=== PATIENT | male | born 1960 | race African-American/Black ===

== ENCOUNTER → 2016-12-17 | Outpatient (CLI) | payer OTHER ==
[2016-12-17 09:04] LABS: ABSOLUTE BASOPHILS # (AUTO) 0.1 10^3/uL (0.0-0.2); ABSOLUTE EOSINOPHILS # (AUTO) 0.3 10^3/uL (0.0-0.6); ABSOLUTE LYMPHOCYTES (AUTO) 1.9 10^3/uL (0.5-4.7); ABSOLUTE MONOCYTES (AUTO) 0.9 10^3/uL (0.1-1.4); ABSOLUTE NEUT (AUTO) 4.4 10^3/uL (1.7-8.2); BASOPHILS % (AUTO) 0.9 % (0-2); EOSINOPHILS % (AUTO) 3.7 % (0-6); HEMATOCRIT 46.6 % (37.9-51.0); HEMOGLOBIN 15.6 g/dL (13.5-17.0); HGB HCT DIFFERENCE 0.2; LYMPHOCYTES % (AUTO) 25.3 % (13-45); MEAN CORPUSCULAR HEMOGLOBIN 29.9 pg (27.0-33.4); MEAN CORPUSCULAR HGB CONC 33.5 g/dL (32.0-36.0); MEAN CORPUSCULAR VOLUME 89 fl (80-97); MONOCYTES % (AUTO) 11.6 % (3-13); RED BLOOD COUNT 5.23 10^6/uL (4.35-5.55); RED CELL DISTRIBUTION WIDTH 14.4 % (11.5-14.0); SEGMENTED NEUTROPHILS % (AUTO) 58.5 % (42-78); WHITE BLOOD COUNT 7.4 10^3/uL (4.0-10.5)
--- NOTE | 2016-12-17 19:54 | EKG REPORT ---
SEVERITY:- ABNORMAL ECG - SINUS RHYTHM PROBABLE LEFT ATRIAL ABNORMALITY NONSPECIFIC INTRAVENTRICULAR CONDUCTION DELAY LEFT VENTRICULAR HYPERTROPHY : Confirmed by: Michael Cobb MD 17-Dec-2016 19:53:50
== END ==
LOC: CCC 08:11
DX: I10 Essential (primary) hypertension (principal); E11.9 Type 2 diabetes mellitus without complications; I25.10 Atherosclerotic heart disease of native coronary artery without angina pectoris
CPT/HCPCS: 36415; 84153; 84443; 85025; 93005; 93010

== ENCOUNTER → 2016-12-27 | Outpatient (CLI) | payer OTHER ==
[2016-12-27 16:30] LABS: ANION GAP 10 (5-19); BLOOD UREA NITROGEN 24 mg/dL (7-20); CALCIUM 9.5 mg/dL (8.4-10.2); CARBON DIOXIDE 29 mmol/L (22-30); CHLORIDE 100 mmol/L (98-107); CREATININE RESULT 1.11 mg/dL (0.52-1.25); GLUCOSE 209 mg/dL (75-110); POTASSIUM 4.4 mmol/L (3.6-5.0); SODIUM 139.4 mmol/L (137-145)
== END ==
LOC: CCC 15:24
DX: Z79.899 Other long term (current) drug therapy (principal)
CPT/HCPCS: 36415; 80048

== ENCOUNTER 2016-12-29 11:39 | Emergency (ER) | payer MEDICAID, OTHER ==
--- NOTE | 2016-12-29 11:51 | ER Document Report ---
ED Medical Screen (RME) - General Stated Complaint: BLOOD SUGAR PROBLEMS Time seen by provider: 11:46 Mode of Arrival: Ambulatory Information source: Patient Notes: 56-year-old male presents to ED for elevated blood sugar with type II diabetes. States his sugar has been running in the in the 300s. High sugar was 500s that was this morning. He is on insulin and metformin. Metformin he just restarted on Monday. Patient has a history of CHF blood pressure and cholesterol as well as diabetes type II. Headache triple bypass in 2011. The blood pressure in RME was 186/121 he states he did take his blood pressure medicine this morning.. This morning his blood pressure was 155/100. He states his blood pressure is not been running that high but his states his blood pressure is always high. I have greeted and performed a rapid initial assessment of this patient. A comprehensive ED assessment and evaluation of the patient, analysis of test results and completion of medical decision making process will be conducted by an additional ED providers. TRAVEL OUTSIDE OF THE [place] IN LAST 30 DAYS: No - Related Data Allergies/Adverse Reactions: No Known Allergies Allergy (Verified 09/19/16 01:19) Past Medical History - Past Medical History Cardiac Medical History: Reports: Hx Coronary Artery Disease, Hx Heart Attack - possible mild heart attack , Hx Hypercholesterolemia, Hx Hypertension Denies: Hx DVT, Hx Pulmonary Embolism Pulmonary Medical History: Reports: Hx Pneumonia Denies: Hx Asthma, Hx Bronchitis, Hx COPD Neurological Medical History: Denies: Hx Cerebrovascular Accident, Hx Seizures Endocrine Medical History: Reports: Hx Diabetes Mellitus Type 2. Denies: Hx Hyperthyroidism, Hx Hypothyroidism GI Medical History: Denies: Hx Cirrhosis, Hx Gastroesophageal Reflux Disease, Hx Hepatitis Musculoskeltal Medical History: Denies Hx Arthritis Psychiatric Medical History: Denies: Hx Depression Infectious Medical History: Denies: Hx Hepatitis Past Surgical History: Reports: Hx Cardiac Surgery - bypass 01/19/12, Hx Coronary Artery Bypass Graft, Hx Tonsillectomy - Immunizations Hx Diphtheria, Pertussis, Tetanus Vaccination: Yes
[2016-12-29 12:34] LABS: ABSOLUTE EOSINOPHILS # (AUTO) 0.2 10^3/uL (0.0-0.6); ABSOLUTE LYMPHOCYTES (AUTO) 2.2 10^3/uL (0.5-4.7); ABSOLUTE MONOCYTES (AUTO) 0.8 10^3/uL (0.1-1.4); ABSOLUTE NEUT (AUTO) 4.4 10^3/uL (1.7-8.2); BASOPHILS % (AUTO) 0.2 % (0-2); EOSINOPHILS % (AUTO) 2.3 % (0-6); HEMOGLOBIN 15.1 g/dL (13.5-17.0); HGB HCT DIFFERENCE 0.3; LYMPHOCYTES % (AUTO) 28.4 % (13-45); MEAN CORPUSCULAR HEMOGLOBIN 29.8 pg (27.0-33.4); MEAN CORPUSCULAR HGB CONC 33.6 g/dL (32.0-36.0); MEAN CORPUSCULAR VOLUME 89 fl (80-97); MONOCYTES % (AUTO) 10.4 % (3-13); RED BLOOD COUNT 5.07 10^6/uL (4.35-5.55); RED CELL DISTRIBUTION WIDTH 14.4 % (11.5-14.0); SEGMENTED NEUTROPHILS % (AUTO) 58.7 % (42-78); WHITE BLOOD COUNT 7.6 10^3/uL (4.0-10.5)
[2016-12-29 12:56] LABS: ALANINE AMINOTRANSFERASE 34 U/L (21-72); ALKALINE PHOSPHATASE 86 U/L (38-126); ANION GAP 10 (5-19); ASPARTATE AMINO TRANSFERASE 22 U/L (17-59); BILIRUBIN,TOTAL 0.8 mg/dL (0.2-1.3); BLOOD UREA NITROGEN 23 mg/dL (7-20); CALCIUM 9.6 mg/dL (8.4-10.2); CARBON DIOXIDE 30 mmol/L (22-30); CHLORIDE 100 mmol/L (98-107); CREATINE KINASE 193 U/L (55-170); CREATININE RESULT 1.18 mg/dL (0.52-1.25); GLUCOSE 302 mg/dL (75-110); POTASSIUM 5.5 mmol/L (3.6-5.0); SODIUM 139.5 mmol/L (137-145); TOTAL PROTEIN 7.9 g/dL (6.3-8.2)
[2016-12-29 13:10] LABS: TROPONIN I < 0.012 ng/mL
--- NOTE | 2016-12-29 13:14 | ER Document Report ---
ED Blood Sugar Problem - General Mode of Arrival: Ambulatory Information source: Patient TRAVEL OUTSIDE OF THE [place] IN LAST 30 DAYS: No - HPI Patient complains to provider of: Hyperglycemia Associated symptoms: Other - see above <RADHA MARR - Last Filed: 12/29/16 13:02> <TREVON AKIEN - Last Filed: 12/29/16 16:34> - General Chief Complaint: High Blood Sugar Stated Complaint: BLOOD SUGAR PROBLEMS Notes: 56 year old male with history of CHF, hypertension, hyperlipidemia, CAD, and diabetes mellitus type II presents to the ED complaining of hyperglycemia. Patient's states that his medications were changed 2 days ago and now takes Metformin and Lantus (20 units). Patient is also on Lasix, Carvedilol, Lisinopril, and sliding scale regular insulin. states that the patient took 10 units of sliding scale insulin at 0915 and 1023 this morning. Patient states that he feels "so so." According to a hyperglycemia and hypertension log the patient brought in, the patient's blood sugar appears to range between 250- 300 constantly. (RADHA MARR) This 56-year-old diabetic comes to the emergency room for high blood sugars. He has a log for the past month or more showing sugars around 300 most of the time. A few days ago he had his 70/30 10units BID stopped, and was changed to Lantus 20units at bedtime, metformin twice a day, and sliding scale regular. This morning his sugar was over 500 and he took 10 units of insulin about 9:15 AM, and another 10 units at 10:23 AM. At 12 noon his blood sugar was 302, with no treatment at all 3 hours later it was 226. A hemoglobin A1c is 10.2 I suspect his blood sugars are running high only because his 70/30 insulin was stopped and the Lantus dose is not adequate. (TREVON AIKEN) - Related Data Allergies/Adverse Reactions: No Known Allergies Allergy (Verified 12/29/16 11:46) Past Medical History - General Information source: Patient - Social History Smoking Status: Former Smoker Chew tobacco use (# tins/day): No Frequency of alcohol use: Occasional Drug Abuse: None Family History: Reviewed & Not Pertinent Patient has suicidal ideation: No Patient has homicidal ideation: No - Past Medical History Cardiac Medical History: Reports: Hx Congestive Heart Failure - Ejection fraction of 20%, Hx Coronary Artery Disease, Hx Heart Attack - possible mild heart attack , Hx Hypercholesterolemia, Hx Hypertension Pulmonary Medical History: Reports: Hx Pneumonia Endocrine Medical History: Reports: Hx Diabetes Mellitus Type 2 Renal/ Medical History: Denies: Hx Peritoneal Dialysis Past Surgical History: Reports: Hx Cardiac Surgery - bypass 01/19/12, Hx Coronary Artery Bypass Graft - CABGx3 in 2012, Hx Tonsillectomy - Immunizations Hx Diphtheria, Pertussis, Tetanus Vaccination: Yes <RADHA MARR - Last Filed: 12/29/16 13:02> Review of Systems - Review of Systems Constitutional: No symptoms reported EENT: No symptoms reported Cardiovascular: See HPI, Other - hyperglycemia Respiratory: No symptoms reported Gastrointestinal: No symptoms reported Genitourinary: No symptoms reported Male Genitourinary: No symptoms reported Musculoskeletal: No symptoms reported Skin: No symptoms reported Hematologic/Lymphatic: No symptoms reported Neurological/Psychological: No symptoms reported -: Yes All other systems reviewed and negative <RADHA MARR - Last Filed: 12/29/16 13:02> Physical Exam - General General appearance: Alert In distress: None - HEENT Head: Normocephalic, Atraumatic Eyes: Normal Extraocular movements intact: Yes Pupils: PERRL - Respiratory Respiratory status: No respiratory distress Breath sounds: Rhonchi - at bilateral bases - Cardiovascular Rhythm: Regular Heart sounds: Normal auscultation - Abdominal Inspection: Normal, Obese - Back Back: Normal - Extremities General upper extremity: Normal inspection, Normal ROM General lower extremity: Normal inspection, Edema, Normal ROM - Neurological Neuro grossly intact: Yes - Psychological Associated symptoms: Normal affect, Normal mood - Skin Skin Temperature: Warm Skin Moisture: Dry Skin Color: Normal <RADHA MARR - Last Filed: 12/29/16 13:02> Course - Laboratory Result Diagrams: 12/29/16 12:10 12/29/16 12:10 <RADHA MARR - Last Filed: 12/29/16 13:02> - Laboratory Result Diagrams: 12/29/16 12:10 12/29/16 12:10 <TREVON AIKEN - Last Filed: 12/29/16 16:34> - Laboratory Laboratory results interpreted by me: 12/29/16 12/29/16 12/29/16 12:10 12:10 12:10 RDW 14.4 H Potassium 5.5 H BUN 23 H Glucose 302 H POC Glucose Hemoglobin A1c % 10.2 H Creatine Kinase 193 H 12/29/16 15:08 RDW Potassium BUN Glucose POC Glucose 226 H Hemoglobin A1c % Creatine Kinase Discharge <RADHA MARR - Last Filed: 12/29/16 13:02> <TREVON AIKEN - Last Filed: 12/29/16 16:34> - Discharge Clinical Impression: Hyperglycemia due to type 2 diabetes mellitus Qualifiers: Diabetes mellitus intermodal dispatcher insulin use: without intermodal dispatcher use Qualified Code(s ): E11.65 - Type 2 diabetes mellitus with hyperglycemia Condition: Stable Disposition: HOME, SELF-CARE Additional Instructions: Increase your Lantus insulin to 25 units twice daily in the morning and again in the evening. Continue the sliding scale as needed. Continue the metformin as prescribed. Follow-up with your doctor as scheduled in January. Return to the emergency room if any problems. Scribe Attestation: 12/29/16 16:34 I personally performed the services described in the documentation, reviewed and edited the documentation which was dictated to the scribe in my presence, and it accurately records my words and actions. (TREVON AIKEN) Scribe Documentation - Scribe Written by Arnoldo:: Arnoldo Haro, 12/29/2016 1317 acting as scribe for :: Baldev <RADHA MARR - Last Filed: 12/29/16 13:02>
[2016-12-29 16:41] LABS: APPEARANCE,URINE SLIGHTLY-CLOUDY; BILIRUBIN,URINE NEGATIVE (NEGATIVE); GLUCOSE, URINE >=500 mg/dL (NEGATIVE); KETONES,URINE NEGATIVE (NEGATIVE); LEUKOCYTE ESTERASE,URINE NEGATIVE (NEGATIVE); NITRITE,URINE NEGATIVE (NEGATIVE); PROTEIN,URINE NEGATIVE (NEGATIVE); UROBILINOGEN,URINE NEGATIVE mg/dL (<2.0)
[2016-12-29 17:04] VITALS: BP 145/96
--- NOTE | 2016-12-30 05:40 | EKG REPORT ---
SEVERITY:- ABNORMAL ECG - SINUS RHYTHM PROBABLE LEFT ATRIAL ABNORMALITY NONSPECIFIC INTRAVENTRICULAR CONDUCTION DELAY : Confirmed by: Nancy Petty MD 30-Dec-2016 05:40:04
== END 2016-12-29 17:05 | disposition home or self-care (01) ==
LOC: ER 11:39
DX: E11.65 Type 2 diabetes mellitus with hyperglycemia (principal); I50.9 Heart failure, unspecified; I11.0 Hypertensive heart disease with heart failure; E78.00 Pure hypercholesterolemia, unspecified; I25.10 Atherosclerotic heart disease of native coronary artery without angina pectoris; Z79.4 Long term (current) use of insulin; Z87.891 Personal history of nicotine dependence; Z79.84 Long term (current) use of oral hypoglycemic drugs; Z95.1 Presence of aortocoronary bypass graft
CPT/HCPCS: 36415; 71020; 80053; 81001; 82550; 82553; 82962; 83036; 84484; 85025; 93005; 93010; 99285

== ENCOUNTER 2017-05-06 18:20 | Observation (INO) | payer MEDICAID ==
--- NOTE | 2017-05-06 19:31 | ER Document Report ---
ED Cardiac - General Mode of Arrival: Ambulatory Information source: Patient TRAVEL OUTSIDE OF THE [place] IN LAST 30 DAYS: No <ELIANE STEELE - Last Filed: 05/06/17 22:10> <MARGARET MEAD - Last Filed: 05/07/17 22:55> - General Chief Complaint: Chest Pain Stated Complaint: CHEST PAIN Time Seen by Provider: 05/06/17 19:11 Notes: Patient is a 56 year old male presenting to the emergency department for chest pain onset at 14:00 today. Patient was mowing the year, sweeping and felt hot and tired so he went into the house. Patient states his legs felt like jello and then he went to the ground and spouse came to patient and found patient on the ground and got the patient to sit up and the patient was taking. Patient had water outside and after the incident. Spouse states the patient was sweating. Patient's pain was onset after the possible syncopal and lasted for about 2 minutes. Patient states his chest pain keeps coming back. Patient's pain is on the left side of her chest and radiates down her left arm. Patient took 325 mg Aspirin this morning. Patient is waiting to have a defibrillator placed (May 25). Patient has a history of CHF (2015), triple bypass (2011), diabetes mellitus, hypertension, and had a cardiac catherization 2 weeks ago which showed no blockages. Patient has no known allergies. Patient has nitroglycerin but did not take it. Patient takes lasix x2 per day. Patient recently moved and has not mowed the lawn like he had today. Patient's most daily activity is not much; patient's level activity today was more than usual. Patient is unsure what his ejection fraction is. Patient states he is feels better compared to earlier today. Patient denies any stroke-like symptoms. PCP Dr. Luna [employer] Dr. Thornton (ELIANE STEELE) - Related Data Allergies/Adverse Reactions: No Known Allergies Allergy (Verified 12/29/16 11:46) Home Medications: Current Home Medications Amlodipine Besylate [Norvasc 5 mg Tablet] 5 mg PO DAILY 05/07/17 [History] Aspirin [Aspirin 325 mg Tablet] 325 mg PO DAILY 05/07/17 [History] Atorvastatin Calcium [Lipitor 40 mg Tablet] 40 mg PO QHS 05/07/17 [History] Carvedilol [Coreg 25 mg Tablet] 25 mg PO Q12 05/07/17 [History] Diphenhydramine HCl [Benadryl 25 mg Capsule] 25 mg PO BID 05/07/17 [History] Docusate Sodium [Colace 100 mg Capsule] 100 mg PO BID 05/07/17 [History] Furosemide [Lasix] 40 mg PO BID 05/07/17 [History] Insulin Glargine,Hum.rec.anlog [Lantus Solostar] 32 units SQ BID 05/07/17 [ History] Insulin Lispro [Humalog Insulin (Lispro) 100 unit/mL] 4 units SQ MEALS 05/07/17 [History] Lisinopril [Zestril] 40 mg PO DAILY 05/07/17 [History] Metformin HCl [Glucophage] 1,000 mg PO BID 05/07/17 [History] Multivit-Min/FA/Lycopen/Lutein [Centrum Silver Men Tablet] 1 tab PO DAILY [History] Past Medical History - General Information source: Patient - Social History Smoking Status: Never Smoker Cigarette use (# per day): No Chew tobacco use (# tins/day): No Smoking Education Provided: No Frequency of alcohol use: None Drug Abuse: None Family History: None Patient has suicidal ideation: No Patient has homicidal ideation: No - Past Medical History Cardiac Medical History: Reports: Hx Congestive Heart Failure - Ejection fraction of 20%, Hx Coronary Artery Disease, Hx Heart Attack - possible mild heart attack , Hx Hypercholesterolemia, Hx Hypertension Pulmonary Medical History: Reports: Hx Pneumonia Endocrine Medical History: Reports: Hx Diabetes Mellitus Type 2 Past Surgical History: Reports: Hx Cardiac Surgery - bypass 01/19/12, Hx Coronary Artery Bypass Graft - CABGx3 in 2011, Hx Tonsillectomy - Immunizations Hx Diphtheria, Pertussis, Tetanus Vaccination: Yes <ELIANE STEELE - Last Filed: 05/06/17 22:10> Review of Systems - Review of Systems Constitutional: No symptoms reported EENT: No symptoms reported Cardiovascular: See HPI, Chest pain Respiratory: No symptoms reported Gastrointestinal: No symptoms reported Genitourinary: No symptoms reported Male Genitourinary: No symptoms reported Musculoskeletal: No symptoms reported Skin: No symptoms reported Hematologic/Lymphatic: No symptoms reported Neurological/Psychological: No symptoms reported -: Yes All other systems reviewed and negative <CEDRICSHERIEELIANE - Last Filed: 05/06/17 22:10> Physical Exam <ELIANE STEELE - Last Filed: 05/06/17 22:10> <MARGARET MEAD - Last Filed: 05/07/17 22:55> - Vital signs Vitals: Temp Pulse Resp BP Pulse Ox 98.1 F 83 20 178/97 H 96 05/06/17 18:37 05/06/17 18:37 05/06/17 18:37 05/06/17 18:37 05/06/17 18:37 - Notes Notes: GENERAL: Alert, interacts well. Mild distress. HEAD: Normocephalic, atraumatic. EYES: Appear normal. Pupils equal, round, and reactive to light. ENT: Moist mucus membranes, tongue midline. NECK: Full range of motion. Supple. Trachea midline. LUNGS: Clear to auscultation bilaterally, no wheezes, rales, or rhonchi. No respiratory distress. HEART: Regular rate and rhythm. No murmurs, gallops, or rubs. ABDOMEN: Soft, non-tender. Non-distended. Normal bowel sounds. EXTREMITIES: Moves all 4 extremities spontaneously. Normal strength. No edema. Normal radial and dorsal pedis pulses. NEUROLOGICAL: Alert and oriented x3. Normal speech. No focal neurological deficits. GSC 15. PSYCH: Normal affect, normal mood. SKIN: Warm, dry, normal turgor. No rashes or lesions noted. (CEDRICELIANE) Course - Laboratory Result Diagrams: 05/06/17 19:54 05/06/17 19:54 - Consults Dr. Renteria Time consulted: 21:50 <ELIANE STEELE - Last Filed: 05/06/17 22:10> - Laboratory Result Diagrams: 05/07/17 06:50 05/07/17 06:50 <MARGARET MEAD - Last Filed: 05/07/17 22:55> - Re-evaluation Re-evalutation: 05/06/17 22:11 Patient presents to the emergency department with a syncopal episode. 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 He just had a heart cath done 2 weeks ago which was negative for blockages but the concern about her valve. He scheduled next month from Dr. Thornton to have a pacemaker defibrillator placed. He has no cardiac stents. He was out mowing the lawn today got overheated started shaking says he went into the house felt like jelly and the next thing he knew he was lying on the ground. His had hollered for him because she was right around the corner he did not respond she came in the house found him laying on the ground. She said it took him a minute or so to respond there was no seizure-like activity or incontinence of urine. She aroused him he did not remember passing out. He stated that he has had some intermittent chest pain lasting seconds resolved on ED arrival. He did take a full aspirin today. Denies any headache blurred vision double vision or strokelike symptoms. He denies any chest pain ongoing in the emergency department stable nonacute EKG labs cardiac enzymes CT of the chest abdomen pelvis negative for PE dissection or aneurysm. Spoke with the hospitalist at this time we will admit him for observation telemetry for further evaluation (MARGARET MEAD) - Vital Signs Vital signs: Temp Pulse Resp BP Pulse Ox 98.2 F 73 20 159/98 H 98 05/07/17 20:00 05/07/17 20:00 05/07/17 20:00 05/07/17 20:00 05/07/17 20:00 - Laboratory Laboratory results interpreted by me: 05/06/17 05/06/17 19:54 19:54 BUN 23 H Creatinine 1.33 H Est GFR (Non-Af Amer) 56 L Glucose 232 H Creatine Kinase 334 H NT-Pro-B Natriuret Pep 952 H - Consults Dr. Renteria Reason for consultation: 05/06/17 21:[address] Renteria who admits the patient. (ELIANE STEELE) Critical Care Note - Critical Care Note Total time excluding time spent on procedures (mins): 65 <MARGARET MEAD - Last Filed: 05/07/17 22:55> Discharge <ELIANE STEELE - Last Filed: 05/06/17 22:10> - Discharge Admitting Provider: Hospitalist Unit Admitted: Telemetry <MARGARET MEAD - Last Filed: 05/07/17 22:55> - Discharge Clinical Impression: chest pain Syncope Qualifiers: Syncope type: unspecified Qualified Code(s): R55 - Syncope and collapse Scribe Attestation: 05/06/17 22:08 I personally performed the services described in the documentation reviewed the documentation recorded by my scribe in my presence and it accurately and completely records my words and actions (MARGARET MEAD) Scribe Documentation - Scribe Written by Scribe:: Arnoldo Matthews, 05/06/17 19:41 acting as scribe for :: [place] <ELIANE STEELE - Last Filed: 05/06/17 22:10>
[2017-05-06 20:18] LABS: ABSOLUTE BASOPHILS # (AUTO) 0.1 10^3/uL (0.0-0.2); ABSOLUTE EOSINOPHILS # (AUTO) 0.2 10^3/uL (0.0-0.6); ABSOLUTE LYMPHOCYTES (AUTO) 2.2 10^3/uL (0.5-4.7); ABSOLUTE MONOCYTES (AUTO) 0.8 10^3/uL (0.1-1.4); ABSOLUTE NEUT (AUTO) 4.4 10^3/uL (1.7-8.2); BASOPHILS % (AUTO) 0.7 % (0-2); EOSINOPHILS % (AUTO) 3.1 % (0-6); HEMATOCRIT 41.6 % (37.9-51.0); HEMOGLOBIN 14.4 g/dL (13.5-17.0); HGB HCT DIFFERENCE 1.6; LYMPHOCYTES % (AUTO) 28.9 % (13-45); MEAN CORPUSCULAR HEMOGLOBIN 31.7 pg (27.0-33.4); MEAN CORPUSCULAR HGB CONC 34.7 g/dL (32.0-36.0); MEAN CORPUSCULAR VOLUME 91 fl (80-97); MONOCYTES % (AUTO) 9.9 % (3-13); RED BLOOD COUNT 4.55 10^6/uL (4.35-5.55); RED CELL DISTRIBUTION WIDTH 13.3 % (11.5-14.0); SEGMENTED NEUTROPHILS % (AUTO) 57.4 % (42-78); WHITE BLOOD COUNT 7.7 10^3/uL (4.0-10.5)
--- NOTE | 2017-05-06 20:25 | RADIOLOGY REPORT (SQ) ---
EXAM DESCRIPTION: CHEST SINGLE VIEW COMPLETED DATE/TIME: 05/06/2017 7:32 pm REASON FOR STUDY: chest pain COMPARISON: 12/29/2016 EXAM PARAMETERS: NUMBER OF VIEWS: One view. TECHNIQUE: Single frontal radiographic view of the chest acquired. RADIATION DOSE: NA LIMITATIONS: None. FINDINGS: LUNGS AND PLEURA: No opacities, masses or pneumothorax. No pleural effusion. MEDIASTINUM AND HILAR STRUCTURES: No masses. Contour normal. HEART AND VASCULAR STRUCTURES: Heart normal in size. Normal vasculature. BONES: No acute findings. HARDWARE: Median sternotomy wires remain intact. OTHER: No other significant finding. IMPRESSION: NO ACUTE RADIOGRAPHIC FINDING IN THE CHEST. TECHNICAL DOCUMENTATION: JOB ID: [id number]
[2017-05-06 20:34] LABS: ANION GAP 11 (5-19); BLOOD UREA NITROGEN 23 mg/dL (7-20); CALCIUM 9.7 mg/dL (8.4-10.2); CARBON DIOXIDE 29 mmol/L (22-30); CHLORIDE 100 mmol/L (98-107); CREATINE KINASE 334 U/L (55-170); CREATININE RESULT 1.33 mg/dL (0.52-1.25); GLUCOSE 232 mg/dL (75-110); POTASSIUM 3.6 mmol/L (3.6-5.0); SODIUM 140.3 mmol/L (137-145)
[2017-05-06 20:45] LABS: TROPONIN I 0.018 ng/mL
--- NOTE | 2017-05-06 21:15 | RADIOLOGY REPORT (SQ) ---
EXAM DESCRIPTION: CT ABD/PELVIS WITH IV ONLY COMPLETED DATE/TIME: 05/06/2017 8:52 pm REASON FOR STUDY: syncope COMPARISON: None. TECHNIQUE: CT scan of the abdomen and pelvis performed using helical scanning technique with dynamic intravenous contrast injection. No oral contrast. Images reviewed with lung, soft tissue, and bone windows. Reconstructed coronal and sagittal MPR images reviewed. Delayed images for evaluation of the urinary system also acquired. All images stored on PACS. All CT scanners at this facility use dose modulation, iterative reconstruction, and/or weight based d osing when appropriate to reduce radiation dose to as low as reasonably achievable (ALARA). [facility]: Dose Right [facility]: CareDose [facility]: Dose Right [facility]: Teradose 4D [facility]: Udacity CONTRAST TYPE AND DOSE: 100 mL Isovue 370- low osmolar. RENAL FUNCTION: BUN 23; creatinine 1.33 RADIATION DOSE: Up-to-date CT equipment and radiation dose reduction techniques were employed. CTDIv ol: 21.0 - 21.1 mGy. DLP: 2785 mGy-cm.. LIMITATIONS: None. FINDINGS: LOWER CHEST: See separate report of the CT of the chest. LIVER: Normal size. No masses. No dilated ducts. SPLEEN: Normal size. No focal lesions. PANCREAS: No masses. No significant calcifications. No adjacent inflammation or peripancreatic fluid collections. Pancreatic duct not dilated. GALLBLADDER: No identified stones by CT criteria. No inflammatory changes to suggest cholecystitis. ADRENAL GLANDS: No significant masses or asymmetry. RIGHT KIDNEY AND URETER: No solid masses. No significant calcifications. No hydronephrosis or hyd roureter. LEFT KIDNEY AND URETER: No solid masses. No significant calcifications. No hydronephrosis or hydr oureter. AORTA AND VESSELS: Significant calcified atherosclerotic plaque. No aneurysm. No dissection. Renal a rteries, SMA, celiac without stenosis. RETROPERITONEUM: No retroperitoneal adenopathy, hemorrhage or masses. BOWEL AND PERITONEAL CAVITY: Sigmoid diverticulosis. No masses or inflammatory changes. No free flui d or peritoneal masses. APPENDIX: Not visualized. PELVIS: And ovoid soft tissue attenuation lesion adjacent to the bladder demonstrating peripheral jami cifications is of uncertain etiology or significance, but overall demonstrates benign appearance. No free fluid. Normal bladder. ABDOMINAL WALL: No masses. No hernias. BONES: No significant or acute findings. OTHER: No other significant finding. IMPRESSION: No evidence of acute intra-abdominal infectious/ inflammatory process to correlate to th e patient's reported left-sided abdominal pain. TECHNICAL DOCUMENTATION: JOB ID: [id number] Quality ID # [id number]: Final reports with documentation of one or more dose reduction techniques (e.g., Au tomated exposure control, adjustment of the mA and/or kV according to patient size, use of iterative reconstruction technique) 2010 [employer]- All Rights Reserved
--- NOTE | 2017-05-06 21:18 | RADIOLOGY REPORT (SQ) ---
EXAM DESCRIPTION: CT CHEST WITH COMPLETED DATE/TIME: 05/06/2017 8:52 pm REASON FOR STUDY: syncope COMPARISON: None. TECHNIQUE: CT scan of the chest performed using helical scanning technique with dynamic intravenous contrast injection. Images reviewed with lung, soft tissue and bone windows. Reconstructed coronal and sagittal MPR images reviewed. All images stored on PACS. All CT scanners at this facility use dose modulation, iterative reconstruction, and/or weight based d osing when appropriate to reduce radiation dose to as low as reasonably achievable (ALARA). [facility]: Dose Right [facility]: CareDose [facility]: Dose Right [facility]: Teradose 4D [facility]: Liqueo CONTRAST TYPE AND DOSE: contrast/concentration: Isovue 370.00 mg/ml; Total Contrast Delivered: 100.0 ml; Total Saline Delivered: 72.0 ml RENAL FUNCTION: BUN 23; creatinine 1.33 RADIATION DOSE: . LIMITATIONS: None. FINDINGS: LUNGS AND PLEURA: No opacities, nodules, masses. No pneumothorax. No effusions. HILAR AND MEDIASTINAL STRUCTURES: No identified masses or abnormal nodes. HEART AND VASCULAR STRUCTURES: No aneurysm or dissection. No central pulmonary emboli. No pericardi al effusion. HARDWARE: Sternal wires. UPPER ABDOMEN: See separate report of the CT of the abdomen. THYROID AND OTHER SOFT TISSUES: No masses. No adenopathy. BONES: No significant finding. OTHER: No other significant finding. IMPRESSION: No evidence of acute intrathoracic abnormality to correlate to the patient's reported sy ncope. TECHNICAL DOCUMENTATION: JOB ID: [id number] Quality ID # [id number]: Final reports with documentation of one or more dose reduction techniques (e.g., Au tomated exposure control, adjustment of the mA and/or kV according to patient size, use of iterative reconstruction technique) 2010 [employer]- All Rights Reserved
[2017-05-06] MEDS ORDERED: ENALAPRILAT DIHYDRATE INJ/PF 1.25 MG/1 ML SDV IV PRN (21:55)
[2017-05-06] MEDS ORDERED: GLUCAGON,HUMAN RECOMB 1 MG INJ IM PRN (21:59)
[2017-05-06] MEDS ORDERED: DEXTROSE 40% GEL 15 GM TUBE PO PRN ×2 (21:59)
[2017-05-06] MEDS ORDERED: DEXTROSE 50%-WATER 25 GM/50 ML DISP.SYRIN IV PRN ×2 (21:59)
[2017-05-06] MEDS ORDERED: HEPARIN SOD (PORCINE) 5,000 UNIT/ML 1 ML SYRINGE SUBCUT SCH (22:00)
[2017-05-06] MEDS ORDERED: FUROSEMIDE INJ/PF 40 MG/4 ML SDV IV ONE (22:15)
[2017-05-06] MEDS ORDERED: POTASSIUM CHLORIDE 10 MEQ TABLET.SA PO ONE (23:00)
[2017-05-07 00:18] LABS: URINE BARBITURATES SCREEN NEGATIVE; URINE METHADONE SCREEN NEGATIVE; URINE OPIATES LOW NEGATIVE; URINE PHENCYCLIDINE SCREEN NEGATIVE
[2017-05-07 01:29] LABS: CREATINE KINASE MB 2.81 ng/mL (<4.55); TROPONIN I 0.023 ng/mL
[2017-05-07] MEDS ORDERED: HEPARIN SOD (PORCINE) 5,000 UNIT/ML 1 ML SYRINGE SUBCUT ONE (02:00)
[2017-05-07] MEDS ORDERED: POTASSIUM CHLORIDE 10 MEQ TABLET.SA PO ONE (02:00)
[2017-05-07] MEDS ORDERED: FUROSEMIDE INJ/PF 40 MG/4 ML SDV IV ONE (02:00)
[2017-05-07] MEDS ORDERED: CARVEDILOL 12.5 MG TABLET PO ONE (02:00)
[2017-05-07] MEDS: CARVEDILOL 12.5 MG TABLET PO SCH ×3 (02:20→21:52)
[2017-05-07] MEDS ORDERED: HYDRALAZINE HCL INJ/PF 20 MG/1 ML SDV IV PRN (04:08)
--- NOTE | 2017-05-07 04:19 | PDOC H&P ---
History of Present Illness Admission Date/PCP: 05/06/17 21:55 GIANLUCA JULIO MD Patient complains of: Syncope History of Present Illness: JAMES FLORIAN is a 56 year old male with a history of coronary artery disease status post coronary artery bypass graft 2011, diabetes, congestive heart failure with ejection fraction 20%. Usual state of health until approximately 2 hours prior to presentation. Patient has been working in the garden and upon entering the house was exhausted with chest pain shortness of breath. Patient dropped to his knees and was unable to stand up approximately 5 minutes later he was discovered by his initially unresponsive but was revived without confusion or postictal state injury. Patient denies falling asleep, hypoglycemia, palpitations, headache, nausea vomiting, previous episode or change in medication or diet. In the emergency room including CTA of the chest , EKG, CBC, chemistry and cardiac enzymes which are unremarkable. He is referred to the hospitalist for syncope. Patient had plan permanent pacemaker defibrillator placement at [facility] May 25. Past Medical History Cardiac Medical History: Reports: Congestive Heart Failure - Ejection fraction of 20%, Coronary Artery Disease, Myocardial Infarction - possible mild heart attack , Hyperlipidema, Hypertension Denies: DVT, Pulmonary Embolism Pulmonary Medical History: Reports: Pneumonia Denies: Asthma, Bronchitis, Chronic Obstructive Pulmonary Disease (COPD) Neurological Medical History: Denies: Seizures Endocrine Medical History: Reports: Diabetes Mellitus Type 2 Denies: Hyperthyroidism, Hypothyroidism GI Medical History: Denies: Cirrhosis, Gastroesophageal Reflux Disease, Hepatitis Musculoskeltal Medical History: Denies: Arthritis Psychiatric Medical History: Denies: Depression Hematology: Denies: Anemia Past Surgical History Past Surgical History: Reports: Coronary Artery Bypass Graft - CABGx3 in 2011, Tonsillectomy Social History Information Source: Patient Lives with: Family Smoking Status: Never Smoker Frequency of Alcohol Use: None Hx Recreational Drug Use: No Drugs: None Hx Prescription Drug Abuse: No Family History Family History: Hypertension Parental Family History Reviewed: Yes Children Family History Reviewed: Yes Sibling(s) Family History Reviewed.: Yes Medication/Allergy Home Medications: Aspirin 81 mg PO DAILY 09/19/16 Atorvastatin Calcium 20 mg PO DAILY 09/19/16 Carvedilol [Coreg 12.5 mg Tablet] 12.5 mg PO Q12 09/19/16 Furosemide 20 mg PO DAILY 09/19/16 Furosemide [Lasix 40 mg Tablet] 40 mg PO BID #10 tablet 12/05/16 Insulin NPH Hum/Reg Insulin Hm [Humulin 70/30 Kwikpen] 2 unit SQ QHS 09/19/16 Insulin NPH Hum/Reg Insulin Hm [Humulin 70/30 Kwikpen] 5 unit SQ DAILY 09/19/16 Lisinopril 40 mg PO DAILY 09/19/16 Multivits,Ca,Min/Iron/FA/Lycop [Centrum Ultra Men's Tablet] 1 each PO DAILY 02/28 Nitroglycerin 0.4 mg SL ASDIR PRN 09/19/16 Allergies/Adverse Reactions: No Known Allergies Allergy (Verified 12/29/16 11:46) Review of Systems Constitutional: ABSENT: chills, fever(s), headache(s), weight gain, weight loss Eyes: ABSENT: visual disturbances Ears: ABSENT: hearing changes Cardiovascular: ABSENT: chest pain, dyspnea on exertion, edema, orthropnea, palpitations Respiratory: ABSENT: cough, hemoptysis Gastrointestinal: ABSENT: abdominal pain, constipation, diarrhea, hematemesis, hematochezia, nausea, vomiting Genitourinary: ABSENT: dysuria, hematuria Musculoskeletal: ABSENT: joint swelling Integumentary: ABSENT: rash, wounds Neurological: ABSENT: abnormal gait, abnormal speech, confusion, dizziness, focal weakness, syncope Psychiatric: ABSENT: anxiety, depression, homidical ideation, suicidal ideation Endocrine: ABSENT: cold intolerance, heat intolerance, polydipsia, polyuria Hematologic/Lymphatic: ABSENT: easy bleeding, easy bruising Physical Exam Vital Signs: Temp Pulse Resp BP Pulse Ox 98 F 79 18 175/104 H 98 05/07/17 02:09 05/07/17 03:15 05/07/17 02:09 05/07/17 02:09 05/07/17 02:09 Intake & Output 05/05/17 05/06/17 05/07/17 11:59 11:59 11:59 Intake Total 340 Output Total 540 Balance -200 Weight 129.2 kg General appearance: PRESENT: no acute distress, well-developed, well-nourished Head exam: PRESENT: atraumatic, normocephalic Eye exam: PRESENT: conjunctiva pink, EOMI, PERRLA. ABSENT: scleral icterus Ear exam: PRESENT: normal external ear exam Mouth exam: PRESENT: moist, tongue midline Neck exam: ABSENT: carotid bruit, JVD, lymphadenopathy, thyromegaly Respiratory exam: PRESENT: clear to auscultation ele. ABSENT: rales, rhonchi, wheezes Cardiovascular exam: PRESENT: RRR. ABSENT: diastolic murmur, rubs, systolic murmur Pulses: PRESENT: normal dorsalis pedis pul Vascular exam: PRESENT: normal capillary refill GI/Abdominal exam: PRESENT: normal bowel sounds, soft. ABSENT: distended, guarding, mass, organolmegaly, rebound, tenderness Rectal exam: PRESENT: deferred Extremities exam: PRESENT: full ROM. ABSENT: calf tenderness, clubbing, pedal edema Neurological exam: PRESENT: alert, awake, oriented to person, oriented to place , oriented to time, oriented to situation, CN II-XII grossly intact. ABSENT: motor sensory deficit Psychiatric exam: PRESENT: appropriate affect, normal mood. ABSENT: homicidal ideation, suicidal ideation Skin exam: PRESENT: dry, intact, warm. ABSENT: cyanosis, rash Results Laboratory Results: 05/07/17 05/07/17 00:45 00:45 Creatine Kinase 254 H CK-MB (CK-2) 2.81 Troponin I 0.023 Impressions: Chest X-Ray 05/06/17 19:12 IMPRESSION: NO ACUTE RADIOGRAPHIC FINDING IN THE CHEST. Abdomen/Pelvis CT 05/06/17 20:05 IMPRESSION: No evidence of acute intra-abdominal infectious/ inflammatory process to correlate to the patient's reported left-sided abdominal pain. Chest CT 05/06/17 20:05 IMPRESSION: No evidence of acute intrathoracic abnormality to correlate to the patient's reported syncope. Assessment & Plan - Diagnosis (1) Congestive heart failure Is this a current diagnosis for this admission?: YesPlan: Chronic mildly decompensated with BMP and blood pressure, ejection fraction 20% permanent pacemaker defibrillator placement May 25. Cardiology consulted gentle diuresis optimization hypertension (2) Syncope Qualifiers: Syncope type: unspecified Qualified Code(s): R55 - Syncope and collapse Is this a current diagnosis for this admission?: YesPlan: Unclear cause possibly heat exhaustion versus TIA versus arrhythmia. Patient was moved to a monitored bed carotid Doppler ordered. (3) Diabetes mellitus type 2 in obese Is this a current diagnosis for this admission?: YesPlan: No evidence for hypoglycemia continue outpatient regiment with sliding scale. (4) Hypertensive urgency Is this a current diagnosis for this admission?: YesPlan: Patient's systolic blood pressure was 180s on presentation syncopal events, Vasotec and hydralazine ordered as needed - Time Time Spent: 50 to 70 Minutes - Inpatient Certification Medical Necessity: Need Close Monitoring Due to Risk of Patient Decompensation
[2017-05-07] MEDS: INSULIN LISPRO 100 UNIT/ML 3 ML VIAL SUBCUT PRN ×4 (06:36→22:30)
[2017-05-07 07:03] LABS: ABSOLUTE EOSINOPHILS # (AUTO) 0.3 10^3/uL (0.0-0.6); ABSOLUTE LYMPHOCYTES (AUTO) 2.3 10^3/uL (0.5-4.7); ABSOLUTE MONOCYTES (AUTO) 0.9 10^3/uL (0.1-1.4); ABSOLUTE NEUT (AUTO) 4.1 10^3/uL (1.7-8.2); BASOPHILS % (AUTO) 0.6 % (0-2); EOSINOPHILS % (AUTO) 3.6 % (0-6); HEMATOCRIT 41.1 % (37.9-51.0); HEMOGLOBIN 14.3 g/dL (13.5-17.0); HGB HCT DIFFERENCE 1.8; LYMPHOCYTES % (AUTO) 30.4 % (13-45); MEAN CORPUSCULAR HEMOGLOBIN 31.7 pg (27.0-33.4); MEAN CORPUSCULAR HGB CONC 34.7 g/dL (32.0-36.0); MEAN CORPUSCULAR VOLUME 91 fl (80-97); MONOCYTES % (AUTO) 11.7 % (3-13); RED CELL DISTRIBUTION WIDTH 13.2 % (11.5-14.0); SEGMENTED NEUTROPHILS % (AUTO) 53.7 % (42-78); WHITE BLOOD COUNT 7.6 10^3/uL (4.0-10.5)
[2017-05-07 07:20] LABS: ANION GAP 9 (5-19); BLOOD UREA NITROGEN 18 mg/dL (7-20); CALCIUM 9.4 mg/dL (8.4-10.2); CARBON DIOXIDE 30 mmol/L (22-30); CHLORIDE 102 mmol/L (98-107); CREATINE KINASE 238 U/L (55-170); CREATININE RESULT 1.25 mg/dL (0.52-1.25); GLUCOSE 260 mg/dL (75-110); POTASSIUM 3.8 mmol/L (3.6-5.0)
[2017-05-07 07:31] LABS: CREATINE KINASE MB 2.13 ng/mL (<4.55); TROPONIN I 0.014 ng/mL
[2017-05-07] MEDS: HEPARIN SOD (PORCINE) 5,000 UNIT/ML 1 ML SYRINGE SUBCUT SCH ×2 (09:10→18:12)
[2017-05-07] MEDS: DOCUSATE SODIUM 100 MG CAPSULE PO SCH (09:12)
[2017-05-07] MEDS ORDERED: ATORVASTATIN CALCIUM 20 MG TABLET PO SCH (10:00)
[2017-05-07] MEDS ORDERED: FUROSEMIDE INJ/PF 40 MG/4 ML SDV IV SCH (10:00)
[2017-05-07] MEDS ORDERED: POTASSIUM CHLORIDE 10 MEQ TABLET.SA PO SCH (10:00)
[2017-05-07] MEDS ORDERED: ASPIRIN 81 MG TABLET, CHEWABLE PO SCH (10:00)
--- NOTE | 2017-05-07 13:04 | PDOC CONSULTATION ---
Consultation Consult Date: 05/07/17 Attending physician:: KHADIJAH FRANCISTERAVIN Consult reason:: Syncope History of Present Illness Admission Date/PCP: 05/06/17 21:55 GIANLUCA JULIO MD Patient complains of: Syncopal spell History of Present Illness: JAMES FLORIAN is a 56 year old male with a history of coronary artery disease status post coronary artery bypass graft 2011, diabetes, congestive heart failure with ejection fraction 20%. Usual state of health until approximately 2 hours prior to presentation. Patient has been working in the garden and upon entering the house was exhausted with chest pain and shortness of breath. Patient dropped to his knees and was unable to stand up approximately 5 minutes later he was discovered by his initially unresponsive but was revived without confusion or postictal state injury. Patient denies falling asleep, hypoglycemia, palpitations, headache, nausea vomiting, previous episode or change in medication or diet. In the emergency room including CTA of the chest , EKG, CBC, chemistry and cardiac enzymes which are unremarkable. He is referred to the hospitalist for syncope. Patient had plan permanent pacemaker defibrillator placement at [facility] May 25. Patient had recent cardiac catheterization by Dr. Thornton at [facility] and apparently no revascularization is needed with his bypass grafts noted to be patent. Last echocardiogram of records is from August 2016 when he was noted to have a ejection fraction of 20%. Patient is scheduled for a outpatient defibrillator placement on June 04. Patient's partner also interviewed. It seems patient has difficulty falling asleep and staying asleep. He also has habitual loud snoring and has daytime sleepiness. Past Medical History Cardiac Medical History: Reports: Congestive Heart Failure - Ejection fraction of 20%, Coronary Artery Disease, Myocardial Infarction - possible mild heart attack , Hyperlipidema, Hypertension Denies: DVT, Pulmonary Embolism Pulmonary Medical History: Reports: Pneumonia Denies: Asthma, Bronchitis, Chronic Obstructive Pulmonary Disease (COPD) Neurological Medical History: Denies: Seizures Endocrine Medical History: Reports: Diabetes Mellitus Type 2 Denies: Hyperthyroidism, Hypothyroidism GI Medical History: Denies: Cirrhosis, Gastroesophageal Reflux Disease, Hepatitis Musculoskeltal Medical History: Denies: Arthritis Psychiatric Medical History: Denies: Depression Hematology: Denies: Anemia Past Surgical History Past Surgical History: Reports: Cardiac Catheterization - Performed recently, Coronary Artery Bypass Graft - CABGx3 in 2011, Tonsillectomy Social History Information Source: Patient Lives with: Family Smoking Status: Never Smoker Frequency of Alcohol Use: None Hx Recreational Drug Use: No Drugs: None Hx Prescription Drug Abuse: No - Advance Directive Surrogate healthcare decision maker:: Patient long time live-in partner lady by the name of Giovani Family History Family History: CAD, Hypertension Parental Family History Reviewed: Yes Children Family History Reviewed: Yes Sibling(s) Family History Reviewed.: Yes Medication/Allergy Home Medications: Amlodipine Besylate [Norvasc 5 mg Tablet] 5 mg PO DAILY 05/07/17 Aspirin [Aspirin 325 mg Tablet] 325 mg PO DAILY 05/07/17 Atorvastatin Calcium [Lipitor 40 mg Tablet] 40 mg PO QHS 05/07/17 Carvedilol [Coreg 25 mg Tablet] 25 mg PO Q12 05/07/17 Diphenhydramine HCl [Benadryl 25 mg Capsule] 25 mg PO BID 05/07/17 Docusate Sodium [Colace 100 mg Capsule] 100 mg PO BID 05/07/17 Furosemide [Lasix] 40 mg PO BID 05/07/17 Insulin Glargine,Hum.rec.anlog [Lantus Solostar] 32 units SQ BID 05/07/17 Insulin Lispro [Humalog Insulin (Lispro) 100 unit/mL] 4 units SQ MEALS 05/07/17 Lisinopril [Zestril] 40 mg PO DAILY 05/07/17 Metformin HCl [Glucophage] 1,000 mg PO BID 05/07/17 Multivit-Min/FA/Lycopen/Lutein [Centrum Silver Men Tablet] 1 tab PO DAILY Allergies/Adverse Reactions: No Known Allergies Allergy (Verified 12/29/16 11:46) Review of Systems Review of Systems: Please see history of present illness and past medical history as wall. Constitutional: No fever or chills reported. Head : No recent chronic headaches, recent head injury. Eyes: No recent eye pain, diplopia, redness, discharge, acute visual changes. Ears: No recent chronic ear pain, acute hearing loss, ear discharge. Oral cavity: No recent ulcerations, bleeding, oral cavity discomfort. Neck: No recent acute neck pain reported. Hematologic: No recent easy bruising or bleeding or hematologic malignancy reported. Lymphatic: No recent lymphatic malignancy, chronic lymphadenopathy reported yet Cardiovascular system review: See history of present illness. Mild intermittent chest pain. No sustained palpitations Respiratory system review: No recent chronic cough, hemoptysis, blood clots in the lungs reported. Mild Shortness of breath on exertion Gastrointestinal system review: Negative for any recent acute or chronic abdominal pain, hematemesis, melena, recent change in bowel habits. Genitourinary system review: No recent acute or chronic hematuria, flank pain, UTI etc. reported. Skin system review: Negative for any recent abnormal bruising, no rash, no pruritus reported. Neurologic: No prior history of strokes, mini strokes, seizure disorder. No prior syncope. Psychologic: No history of major psychosis or major depression reported. Musculoskeletal: Minor aches and pains reported. No acute joint swelling reported. Endocrine: No recent polyuria, polydipsia, recent heat or cold intolerance. Physical Exam Vital Signs: Temp Pulse Resp BP Pulse Ox 97.7 F 79 20 150/98 H 99 05/07/17 11:39 05/07/17 11:39 05/07/17 11:39 05/07/17 11:39 05/07/17 11:39 Intake & Output 05/06/17 05/07/17 05/08/17 06:59 06:59 06:59 Intake Total 340 Output Total 540 Balance -200 Weight 129.2 kg Exam: GENERAL: well-nourished and in no acute distress. Alert and oriented x3 HEAD: Atraumatic, normocephalic. EYES: Pupils equal round and reactive to light, extraocular movements intact, sclera anicteric, conjunctiva are normal. ENT: TMs normal, nares patent, oropharynx clear without exudates. Moist mucous membranes. No oral ulcerations or bleeding gums noted NECK: supple without lymphadenopathy. Trachea is central. No cervical or axillary lymphadenopathy noted. Carotids are 2+, JVD WNL LUNGS: Respiration seems nonlabored, no significant accessory muscle action noted. Breath sounds clear to auscultation bilaterally and equal noted. No wheezes rales or rhonchi noted. No significant dullness noted on percussion. CHEST: Palpation of the chest wall shows no significant chest wall tenderness. No other significant abnormalities noted. HEART: [employer], No PSH, 1/6 TRISH aortic area, 1/6 arredondo systolic murmur mitral area, no rubs, no gallops. ABDOMEN: Soft, no significant tenderness appreciated, normoactive bowel sounds. No guarding, no rebound. No rigidity noted . No masses appreciated. EXTREMITIES: Pedal pulses are 1-2+, no calf tenderness noted. No clubbing or cyanosis.trace to 1+ pedal edema noted NEUROLOGICAL: Focused neurological exam showed no significant neurologic deficit. Normal speech, no focal weakness appreciated. PSYCH: Normal mood, normal affect. Judgment and insight within normal limits. SKIN: No significant ecchymosis, rash, ulcerations or signs of pruritus noted. MUSCULOSKELETAL EXAM: No significant joint swelling noted. Results Laboratory Results: 05/07/17 06:50 05/07/17 06:50 05/07/17 05/07/17 06:50 06:50 WBC 7.6 RBC 4.50 Hgb 14.3 Hct 41.1 MCV 91 MCH 31.7 MCHC 34.7 RDW 13.2 Plt Count 184 Seg Neutrophils % 53.7 Lymphocytes % 30.4 Monocytes % 11.7 Eosinophils % 3.6 Basophils % 0.6 Absolute Neutrophils 4.1 Absolute Lymphocytes 2.3 Absolute Monocytes 0.9 Absolute Eosinophils 0.3 Absolute Basophils 0.0 Sodium 141.0 Potassium 3.8 Chloride 102 Carbon Dioxide 30 Anion Gap 9 BUN 18 Creatinine 1.25 Est GFR ( Amer) > 60 Est GFR (Non-Af Amer) > 60 Glucose 260 H Calcium 9.4 05/07/17 05/07/17 05/07/17 00:45 00:45 06:50 Creatine Kinase 254 H CK-MB (CK-2) 2.81 2.13 Troponin I 0.023 0.014 05/07/17 06:50 Creatine Kinase 238 H CK-MB (CK-2) Troponin I EKG Comments: Sinus rhythm, LVH, minor nonspecific ST-T wave changes Impressions: Chest X-Ray 05/06/17 19:12 IMPRESSION: NO ACUTE RADIOGRAPHIC FINDING IN THE CHEST. Abdomen/Pelvis CT 05/06/17 20:05 IMPRESSION: No evidence of acute intra-abdominal infectious/ inflammatory process to correlate to the patient's reported left-sided abdominal pain. Chest CT 05/06/17 20:05 IMPRESSION: No evidence of acute intrathoracic abnormality to correlate to the patient's reported syncope. Assessment & Plan - Diagnosis (1) Syncope Qualifiers: Syncope type: unspecified Qualified Code(s): R55 - Syncope and collapse Is this a current diagnosis for this admission?: Yes (2) Congestive heart failure Qualifiers: Congestive heart failure type: systolic Congestive heart failure chronicity: chronic Qualified Code(s): I50.22 - Chronic systolic ( congestive) heart failure Is this a current diagnosis for this admission?: Yes (3) Coronary artery disease Qualifiers: Coronary Disease-Associated Artery/Lesion type: unspecified vessel or lesion type Associated angina: angina presence unspecified Is this a current diagnosis for this admission?: Yes (4) Moderate to severe pulmonary hypertension Is this a current diagnosis for this admission?: Yes (5) Obesity (BMI 30-39.9) Is this a current diagnosis for this admission?: Yes (6) Diabetes mellitus type 2 in obese Is this a current diagnosis for this admission?: Yes (7) Hypertension Qualifiers: Hypertension type: essential hypertension Qualified Code(s): I10 - Essential (primary) hypertension Is this a current diagnosis for this admission?: Yes (8) Sleep disorder Is this a current diagnosis for this admission?: Yes - Notes Notes: Syncope: Patient has history of depressed LVEF, most likely cardiac dysrhythmia. Patient had slow LVEF of 20%. This is from August 31. Patient will benefit from the LifeVest and subsequent prophylactic defibrillator placement. Congestive heart failure: Currently seems compensated. Patient has chronic systolic heart failure. Continue current regimen which is noted to be satisfactory. Pulmonary hypertension: This was noted on previous echocardiogram. Patient will benefit from a sleep study as he does seem to have underlying sleep apnea syndrome. Obesity: Patient has been encouraged in weight loss. Hypertension: Patient has been instructed in weight Hypertension: Blood pressure goal in this patient is 135/85 or less. This was discussed with the patient. Currently blood pressure under reasonable control. Better medication for this patient are GERTRUDE inhibitor/ARB/beta krista etc. discussed side effects of uncontrolled hypertension and also severe hypotension. Sleep disorder : Based on patient's symptoms, oropharyngeal exam, body habitus, comorbid diagnosis etc., there is high probability of underlying sleep apnea syndrome. Evaluation is recommended for sleep apnea as treatment of this condition if found is likely to benefit patient and reduce patient's future cardiovascular risk. - Time Time Spent: 30 to 50 Minutes - CODE STATUS was discussed, patient remains full code. Surrogate decision-maker lady friend with last name of Giovani. Multiple medical problems were addressed. More than 50% of the time spent coordinating care, discussing management plans with involved caregivers. Management plans discussed with involved personnels. Medical decision making was of moderate to high complexity, patient's has multiple comorbidities. Medications reviewed and adjusted accordingly: Yes
[2017-05-07 13:46] LABS: CREATINE KINASE MB 2.33 ng/mL (<4.55); TROPONIN I 0.016 ng/mL
--- NOTE | 2017-05-07 13:51 | EKG REPORT ---
SEVERITY:- ABNORMAL ECG - SINUS RHYTHM PROBABLE LEFT ATRIAL ABNORMALITY NONSPECIFIC INTRAVENTRICULAR CONDUCTION DELAY : Confirmed by: Nancy ePtty MD 07-May-2017 13:50:21
--- NOTE | 2017-05-07 14:05 | PDOC PROGRESS REPORT ---
Subjective Progress Note for:: 05/07/17 Subjective:: This is a follow-up visit for syncope. The patient has an EF of 20%. He is a CABG patient. I have discussed with him whether or not anyone has mentioned that he would need a LifeVest. Patient says no. He describes an ongoing situation from October until now just to get pacemaker defibrillator implanted. He denies any current chest pain or shortness of breath. Physical Exam Vital Signs: Temp Pulse Resp BP Pulse Ox 97.7 F 79 20 150/98 H 99 05/07/17 11:39 05/07/17 11:39 05/07/17 11:39 05/07/17 11:39 05/07/17 11:39 Intake & Output 05/06/17 05/07/17 05/08/17 06:59 06:59 06:59 Intake Total 340 Output Total 540 Balance -200 Weight 129.2 kg GENERAL: This is a well-developed well-nourished appearing obese - [place] male sitting up in bed currently in no acute distress. HEART: Regular rate and rhythm. No murmurs, rubs or gallops. LUNGS: Clear to auscultation bilaterally with equal rise and fall of the chest. ABDOMEN: Soft, nontender, nondistended with normoactive bowel sounds EXTREMETIES: No clubbing, cyanosis or edema. 2+ peripheral pulses bilaterally. NEURO: Awake, alert and oriented 3. Cranial nerves II through XII are grossly intact. Results Laboratory Results: 05/07/17 06:50 05/07/17 06:50 05/07/17 05/07/17 06:50 06:50 WBC 7.6 RBC 4.50 Hgb 14.3 Hct 41.1 MCV 91 MCH 31.7 MCHC 34.7 RDW 13.2 Plt Count 184 Seg Neutrophils % 53.7 Lymphocytes % 30.4 Monocytes % 11.7 Eosinophils % 3.6 Basophils % 0.6 Absolute Neutrophils 4.1 Absolute Lymphocytes 2.3 Absolute Monocytes 0.9 Absolute Eosinophils 0.3 Absolute Basophils 0.0 Sodium 141.0 Potassium 3.8 Chloride 102 Carbon Dioxide 30 Anion Gap 9 BUN 18 Creatinine 1.25 Est GFR ( Amer) > 60 Est GFR (Non-Af Amer) > 60 Glucose 260 H Calcium 9.4 05/07/17 05/07/17 05/07/17 00:45 00:45 06:50 Creatine Kinase 254 H CK-MB (CK-2) 2.81 2.13 Troponin I 0.023 0.014 05/07/17 05/07/17 06:50 13:07 Creatine Kinase 238 H CK-MB (CK-2) 2.33 Troponin I 0.016 Impressions: Chest X-Ray 05/06/17 19:12 IMPRESSION: NO ACUTE RADIOGRAPHIC FINDING IN THE CHEST. Abdomen/Pelvis CT 05/06/17 20:05 IMPRESSION: No evidence of acute intra-abdominal infectious/ inflammatory process to correlate to the patient's reported left-sided abdominal pain. Chest CT 05/06/17 20:05 IMPRESSION: No evidence of acute intrathoracic abnormality to correlate to the patient's reported syncope. Assessment & Plan - Diagnosis (1) Syncope Qualifiers: Syncope type: unspecified Qualified Code(s): R55 - Syncope and collapse Is this a current diagnosis for this admission?: YesPlan: The patient suspects that he had a syncopal episode secondary to working in the heat. My concern is for his underlying cardiac function. His last known EF is at 20% and he is due for pacemaker/defibrillator implantation on May 25. He is at risk for sudden . Will consult Dr. Montoya about obtaining a LifeVest. (2) Congestive heart failure Qualifiers: Congestive heart failure type: systolic Congestive heart failure chronicity: chronic Qualified Code(s): I50.22 - Chronic systolic ( congestive) heart failure Is this a current diagnosis for this admission?: YesPlan: Chronic systolic CHF. Compensated. Continue home medications. (3) Diabetes mellitus type 2, uncontrolled Qualifiers: Diabetes mellitus complication status: without complication Diabetes mellitus half-way insulin use: without half-way use Qualified Code(s): E11.65 - Type 2 diabetes mellitus with hyperglycemia Plan: Continue q. before meals at bedtime blood sugar checks. Continue home medications. - Time Time Spent with patient: 25-34 minutes Within: within 24 hours - Inpatient Certification Medical Necessity: Need Close Monitoring Due to Risk of Patient Decompensation
[2017-05-07] MEDS ORDERED: INSULIN GLARGINE,HUM.REC.ANLOG 300 UNIT/3 ML INSULN.PEN SUBCUT SCH (18:00)
[2017-05-07] MEDS: INSULIN GLARGINE,HUM.REC.ANLOG 1,000 UNIT/10 ML UNIT SUBCUT SCH (18:12)
[2017-05-07] MEDS: INSULIN LISPRO 100 UNIT/ML 3 ML VIAL SUBCUT SCH (18:12)
[2017-05-07] MEDS: METFORMIN HCL 500 MG TABLET PO SCH (18:14)
[2017-05-07] MEDS: DIPHENHYDRAMINE HCL 25 MG CAPSULE PO SCH (18:14)
[2017-05-07] MEDS ORDERED: ATORVASTATIN CALCIUM 40 MG TABLET PO SCH (22:00)
[2017-05-08] MEDS: HEPARIN SOD (PORCINE) 5,000 UNIT/ML 1 ML SYRINGE SUBCUT SCH ×3 (01:02→17:48)
[2017-05-08] MEDS: INSULIN GLARGINE,HUM.REC.ANLOG 1,000 UNIT/10 ML UNIT SUBCUT SCH ×2 (06:17→17:48)
--- NOTE | 2017-05-08 09:32 | Physician Advisory Note ---
Physician Advisor ProgressNote .: Pursuant to the plan for [facility], I have reviewed the medical record for this patient. Physician Advisor Statement: Status: Approp'ly brought in initially as Obs for CP, syncope, possibly dysrhythmia, possibly heat exhaustion. Attending subsequently indicated concern for risk of sudden from life- threatening arrhythmia, making arrangements for LifeVest until can get pacer- defibrillator, keeping close monitoring in hospital on tele until LifeVest in place. Approp to change to Inpt status as of 05/07 PM. CK
[2017-05-08] MEDS ORDERED: (PENDING PHARMACY ID) (Lisinopril [Zestril] 40 MG) PO SCH (10:00)
[2017-05-08] MEDS ORDERED: LISINOPRIL 10 MG TABLET PO SCH (10:00)
[2017-05-08] MEDS ORDERED: AMLODIPINE BESYLATE 5 MG TABLET PO SCH (10:00)
[2017-05-08] MEDS ORDERED: ASPIRIN 325 MG TABLET PO SCH (10:00)
[2017-05-08] MEDS: INSULIN LISPRO 100 UNIT/ML 3 ML VIAL SUBCUT SCH ×3 (10:50→17:48)
[2017-05-08] MEDS: DOCUSATE SODIUM 100 MG CAPSULE PO SCH (10:52)
[2017-05-08] MEDS: METFORMIN HCL 500 MG TABLET PO SCH ×2 (10:52→17:47)
[2017-05-08] MEDS: CARVEDILOL 12.5 MG TABLET PO SCH (10:52)
[2017-05-08] MEDS: DIPHENHYDRAMINE HCL 25 MG CAPSULE PO SCH ×2 (10:53→17:47)
--- NOTE | 2017-05-08 11:06 | PDOC PROGRESS REPORT ---
Subjective Progress Note for:: 05/08/17 Subjective:: Patient seems to be doing better with gradual improvement. Pt is denying any chest arm or neck discomfort. Patient denying any PND, orthopnea. Patient denied any sustained palpitations, dizziness, syncope, near syncope. Patient denying any fever chills. Patient denying any other significant discomfort. Patient is maintaining sinus rhythm. Patient was explained the importance of wearing LifeVest. This was arranged. Review of systems: Rest review of systems negative. Medications: Medications have been reviewed. Physical Exam Vital Signs: Temp Pulse Resp BP Pulse Ox 98.4 F 72 17 140/91 H 98 05/08/17 07:19 05/08/17 07:19 05/08/17 07:19 05/08/17 07:19 05/08/17 07:19 Intake & Output 05/07/17 05/08/17 05/09/17 06:59 06:59 06:59 Intake Total 340 2493 Output Total 540 3050 Balance -200 -557 Weight 129.2 kg 129.6 kg Exam: GENERAL: well-nourished and in no acute distress. Alert and oriented x3 HEAD: Atraumatic, normocephalic. EYES: Pupils equal round and reactive to light, extraocular movements intact, sclera anicteric, conjunctiva are normal. ENT: TMs normal, nares patent, oropharynx clear without exudates. Moist mucous membranes. No oral ulcerations or bleeding gums noted NECK: supple without lymphadenopathy. Trachea is central. No cervical or axillary lymphadenopathy noted. Carotids are 2+, JVD WNL LUNGS: Respiration seems nonlabored, no significant accessory muscle action noted. Breath sounds clear to auscultation bilaterally and equal noted. No wheezes rales or rhonchi noted. No significant dullness noted on percussion. CHEST: Palpation of the chest wall shows no significant chest wall tenderness. No other significant abnormalities noted. 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 ABDOMEN: Soft, no significant tenderness appreciated, normoactive bowel sounds. No guarding, no rebound. No rigidity noted . No masses appreciated. EXTREMITIES: Pedal pulses are 1-2+, no calf tenderness noted. No clubbing or cyanosis.1+ pedal edema noted NEUROLOGICAL: Focused neurological exam showed no significant neurologic deficit. Normal speech, no focal weakness appreciated. PSYCH: Normal mood, normal affect. Judgment and insight within normal limits. SKIN: No significant ecchymosis, rash, ulcerations or signs of pruritus noted. MUSCULOSKELETAL EXAM: No significant joint swelling noted. Results Laboratory Results: 05/07/17 06:50 05/07/17 06:50 05/07/17 05/07/17 05/07/17 00:45 00:45 06:50 Creatine Kinase 254 H CK-MB (CK-2) 2.81 2.13 Troponin I 0.023 0.014 05/07/17 05/07/17 06:50 13:07 Creatine Kinase 238 H CK-MB (CK-2) 2.33 Troponin I 0.016 EKG Comments: Telemetry strips reviewed. It showed sinus rhythm without any sustained tachycardia bradyarrhythmias. Impressions: Chest X-Ray 05/06/17 19:12 IMPRESSION: NO ACUTE RADIOGRAPHIC FINDING IN THE CHEST. Abdomen/Pelvis CT 05/06/17 20:05 IMPRESSION: No evidence of acute intra-abdominal infectious/ inflammatory process to correlate to the patient's reported left-sided abdominal pain. Chest CT 05/06/17 20:05 IMPRESSION: No evidence of acute intrathoracic abnormality to correlate to the patient's reported syncope. Assessment & Plan - Diagnosis (1) Syncope Qualifiers: Syncope type: unspecified Qualified Code(s): R55 - Syncope and collapse Is this a current diagnosis for this admission?: Yes (2) Congestive heart failure Qualifiers: Congestive heart failure type: systolic Congestive heart failure chronicity: chronic Qualified Code(s): I50.22 - Chronic systolic ( congestive) heart failure Is this a current diagnosis for this admission?: Yes (3) Coronary artery disease Qualifiers: Coronary Disease-Associated Artery/Lesion type: unspecified vessel or lesion type Associated angina: angina presence unspecified Is this a current diagnosis for this admission?: Yes (4) Moderate to severe pulmonary hypertension Is this a current diagnosis for this admission?: Yes (5) Obesity (BMI 30-39.9) Is this a current diagnosis for this admission?: Yes (6) Diabetes mellitus type 2 in obese Is this a current diagnosis for this admission?: Yes (7) Hypertension Qualifiers: Hypertension type: essential hypertension Qualified Code(s): I10 - Essential (primary) hypertension Is this a current diagnosis for this admission?: Yes (8) Sleep disorder Is this a current diagnosis for this admission?: Yes - Notes Notes: Patient has done well overnight without any sustained tachycardia or bradycardia arrhythmias. Referral for LifeVest placement was made yesterday. Patient will benefit from switching to entresto, will consider doing this as an outpatient. In preparation for switch, will stop lisinopril and place patient on Diovan 160 p.o. twice daily. Since medical regimen is being optimized. Syncope: Patient has history of depressed LVEF, most likely cardiac dysrhythmia. Patient had show LVEF of 20%. This is from August 2016. Patient will benefit from the LifeVest and subsequent prophylactic defibrillator placement. Congestive heart failure: Currently seems compensated. Patient has chronic systolic heart failure. Continue current regimen which is noted to be satisfactory. Pulmonary hypertension: This was noted on previous echocardiogram. Patient will benefit from a sleep study as he does seem to have underlying sleep apnea syndrome. Obesity: Patient has been encouraged in weight loss. Hypertension: Patient has been instructed in weight Hypertension: Blood pressure goal in this patient is 135/85 or less. This was discussed with the patient. Currently blood pressure under reasonable control. Better medication for this patient are GERTRUDE inhibitor/ARB/beta krista etc. discussed side effects of uncontrolled hypertension and also severe hypotension. Sleep disorder : Based on patient's symptoms, oropharyngeal exam, body habitus, comorbid diagnosis etc., there is high probability of underlying sleep apnea syndrome. Evaluation is recommended for sleep apnea as treatment of this condition if found is likely to benefit patient and reduce patient's future cardiovascular risk. - Time Time with patient: Greater than 35 minutes - CODE STATUS was discussed, patient remains full code. Surrogate decision-maker unchanged. Multiple medical problems were addressed. More than 50% of the time spent coordinating care, discussing management plans with involved caregivers. Management plans discussed with involved personnels. Medical decision making was of high complexity, patient's has multiple comorbidities. Significant time spent discussing LifeVest and subsequent therapy. Patient offered follow-up with me. Medications reviewed and adjusted accordingly: Yes
[2017-05-08] MEDS: INSULIN LISPRO 100 UNIT/ML 3 ML VIAL SUBCUT PRN ×2 (11:10→13:29)
--- NOTE | 2017-05-08 12:03 | XCELERA REPORT ---
[address] [address] Transthoracic Echocardiogram Report Name: JAMES FLORIAN Age: 56 yrs Gender: Male : 1960 Patient Status: Inpatient Patient Location: [id number]\S\[id number]\A Study Date: 05/08/2017 09:06 AM Height: 74 in Weight: 289 lb BSA: 2.5 m2 Procedure: A complete two-dimensional transthoracic echocardiogram was performed (2D, M-mode, spectral and color flow Doppler). The study was technically adequate with some images being suboptimal in quality. Reason For Study: Syncope, pulmonary hypertension Ordering Physician: NATAN FELIX Performed By: Emma Rios Interpretation Summary LV EF is 35% Doppler measurements suggest pseudonormalized left ventricular relaxation, which is associated with grade II/IV or mild to moderate diastolic dysfunction The left ventricle is mildly dilated. There is borderline concentric left ventricular hypertrophy. There is moderate to severe global hypokinesis of the left ventricle. The right ventricular systolic function is normal. The right atrium is normal in size The left atrial size is normal. There is a mild amount of mitral regurgitation There is no mitral valve stenosis. There is a trace amount of aortic regurgitation There is no aortic valve stenosis There is a trace or physiologic amount of tricuspid regurgitation Tricuspid regurgitation jet envelope not well defined to measure RV systolic pressure accurately. The aortic root is not well visualized but is probably normal size. The inferior vena cava appeared normal and decreased < 50% with respiration (RAP 10-15 mmHg) There is no pericardial effusion. MMode/2D Measurements \T\ Calculations RVDd: 3.9 cm LVIDd: 6.1 cm FS: 21.0 % Ao root diam: 2.9 cm IVSd: 1.0 cm LVIDs: 4.8 cm EDV(Teich): 186.2 ml LVPWd: 1.0 cm ESV(Teich): 108.0 ml Ao root area: 6.7 cm2 EF(Teich): 42.0 % Doppler Measurements \T\ Calculations MV E max seb: MV dec slope: Ao V2 max: LV V1 max P.2 cm/sec 113.5 cm/sec 2.8 mmHg MV A max seb: 521.8 cm/sec2 Ao max PG: LV V1 max: 78.5 cm/sec MV dec time: 5.1 mmHg 84.3 cm/sec MV E/A: 1.2 0.19 sec PA V2 max: PI end-d seb: TR max seb: 81.0 cm/sec 128.7 cm/sec 185.4 cm/sec PA max PG: TR max P.6 mmHg 13.7 mmHg Left Ventricle The left ventricle is mildly dilated. There is borderline concentric left ventricular hypertrophy. LV EF is 35%. Doppler measurements suggest pseudonormalized left ventricular relaxation, which is associated with grade II/IV or mild to moderate diastolic dysfunction. There is moderate to severe global hypokinesis of the left ventricle. Right Ventricle The right ventricle is grossly normal size. There is normal right ventricular wall thickness. The right ventricular systolic function is normal. Atria The right atrium is normal in size. The left atrial size is normal. Interarterial septum not well visualized and not well dopplered. Cannot comment on ASD/PFO presence. Mitral Valve The mitral valve is grossly normal. There is no mitral valve stenosis. There is a mild amount of mitral regurgitation. Aortic Valve The aortic valve is grossly normal. There is no aortic valve stenosis. There is a trace amount of aortic regurgitation. Tricuspid Valve The tricuspid valve is not well visualized, but is grossly normal. There is no tricuspid stenosis. There is a trace or physiologic amount of tricuspid regurgitation. Tricuspid regurgitation jet envelope not well defined to measure RV systolic pressure accurately. Pulmonic Valve The pulmonic valve is not well visualized. Great Vessels The aortic root is not well visualized but is probably normal size. The inferior vena cava appeared normal and decreased < 50% with respiration (RAP 10-15 mmHg). Effusions There is no pericardial effusion. : NATAN FELIX > Natan Felix
--- NOTE | 2017-05-08 13:01 | RADIOLOGY REPORT (SQ) ---
EXAM DESCRIPTION: CAROTID DOPPLER COMPLETED DATE/TIME: 05/08/2017 12:49 pm REASON FOR STUDY: syncope COMPARISON: None. TECHNIQUE: Grayscale ultrasound, Doppler velocity and spectra, and color Doppler images acquired of the extra-cranial carotid and vertebral arteries. Images stored on PACS. LIMITATIONS: None. FINDINGS: RIGHT CAROTID CCA Velocities: Within normal limits. ICA Velocities Peak systolic 0.80 m/s. End diastolic 0.30 m/s. Proximal ICA/CCA peak systolic ratio 1.1. Mild homogeneous plaque in the bulb. LEFT CAROTID CCA Velocities: Within normal limits. ICA Velocities Peak systolic 0.99 m/s. End diastolic 0.39 m/s. Proximal ICA/CCA peak systolic ratio 0.8. Mild homogeneous plaque in the bulb. VERTEBRAL ARTERIES: Antegrade flow. Normal waveforms. SUBCLAVIAN ARTERIES: Not imaged. OTHER: No other significant finding. IMPRESSION: NO HEMODYNAMICALLY SIGNIFICANT STENOSIS. COMMENT: Quality ID #[id number]: Velocity criteria are extrapolated from the diameter data as defined by t he Society of Radiologists in Ultrasound Consensus Conference. Radiology 2003: 229; 340-346. TECHNICAL DOCUMENTATION: JOB ID: [id number] [employer]- All Rights Reserved
[2017-05-08] MEDS ORDERED: ENALAPRILAT DIHYDRATE INJ/PF 1.25 MG/1 ML SDV IV PRN (15:27)
--- NOTE | 2017-05-08 17:03 | PDOC DISCHARGE SUMMARY ---
General - Admit/Disc Date/PCP Admission Date/Primary Care Provider: 05/06/17 21:55 GIANLUCA JULIO MD Discharge Date: 05/08/17 - Discharge Diagnosis (1) Syncope Is this a current diagnosis for this admission?: Yes Summary: No further episodes. This could have been due to heat exhaustion but more likely secondary to transient arrhythmia. Carotid Dopplers negative. (2) Congestive heart failure Is this a current diagnosis for this admission?: Yes Summary: Chronic systolic congestive heart failure. No acute exacerbation. Last known EF of 20%. Echocardiogram done prior to discharge. Follow-up with technology coordinator in [place] for placement of defibrillator on May 25. LifeVest has been arranged. (3) Diabetes mellitus type 2, uncontrolled Summary: Continue home medications. Follow-up with PCP for management. - Additional Information Discharge Activity: Activity As Tolerated, Balance Activity w/Rest, Weigh Daily Home Medications: Amlodipine Besylate [Norvasc 5 mg Tablet] 5 mg PO DAILY 05/07/17 Aspirin [Aspirin 325 mg Tablet] 325 mg PO DAILY 05/07/17 Atorvastatin Calcium [Lipitor 40 mg Tablet] 40 mg PO QHS 05/07/17 Carvedilol [Coreg 25 mg Tablet] 25 mg PO Q12 05/07/17 Diphenhydramine HCl [Benadryl 25 mg Capsule] 25 mg PO BID 05/07/17 Docusate Sodium [Colace 100 mg Capsule] 100 mg PO BID 05/07/17 Furosemide [Lasix] 40 mg PO BID 05/07/17 Insulin Glargine,Hum.rec.anlog [Lantus Solostar] 32 units SQ BID 05/07/17 Insulin Lispro [Humalog Insulin (Lispro) 100 unit/mL] 4 units SQ MEALS 05/07/17 Lisinopril [Zestril] 40 mg PO DAILY 05/07/17 Metformin HCl [Glucophage] 1,000 mg PO BID 05/07/17 Multivit-Min/FA/Lycopen/Lutein [Centrum Silver Men Tablet] 1 tab PO DAILY History of Present Illness History of Present Illness: HPI per admitting physician: History of Present Illness Admission Date/PCP: 05/06/17 21:55 GIANLUCA JULIO MD Patient complains of: Syncope History of Present Illness: JAMES FLORIAN is a 56 year old male with a history of coronary artery disease status post coronary artery bypass graft 2011, diabetes, congestive heart failure with ejection fraction 20%. Usual state of health until approximately 2 hours prior to presentation. Patient has been working in the garden and upon entering the house was exhausted with chest pain shortness of breath. Patient dropped to his knees and was unable to stand up approximately 5 minutes later he was discovered by his initially unresponsive but was revived without confusion or postictal state injury. Patient denies falling asleep, hypoglycemia, palpitations, headache, nausea vomiting, previous episode or change in medication or diet. In the emergency room including CTA of the chest , EKG, CBC, chemistry and cardiac enzymes which are unremarkable. He is referred to the hospitalist for syncope. Patient had plan permanent pacemaker defibrillator placement at [facility] May 25. Hospital Course Hospital Course: Patient was admitted to the hospital. He had no further episodes of syncope or dizziness. His last known EF was 20% therefore it was felt to be in the patient 's best interest to be clipped with LifeVest for risk of sudden . Arrangements were made through the cardiology service. Patient is stable and now ready for discharge. Physical Exam Vital Signs: Temp Pulse Resp BP Pulse Ox 98.0 F 80 19 135/96 H 99 05/08/17 11:17 05/08/17 11:17 05/08/17 11:17 05/08/17 11:17 05/08/17 11:17 Intake & Output 05/07/17 05/08/17 05/09/17 06:59 06:59 06:59 Intake Total 340 2493 Output Total 540 3050 Balance -200 -557 Weight 129.2 kg 129.6 kg GENERAL: This is a well-developed well-nourished appearing obese - [place] male in bed getting an echo. HEART: Regular rate and rhythm. No murmurs, rubs or gallops. LUNGS: Clear to auscultation bilaterally with equal rise and fall of the chest. ABDOMEN: nondistended EXTREMETIES: No clubbing, cyanosis or edema. 2+ peripheral pulses bilaterally. NEURO: Awake, alert and oriented 3. Cranial nerves II through XII are grossly intact. Results Laboratory Results: 05/07/17 06:50 05/07/17 06:50 05/07/17 05/07/17 05/07/17 00:45 00:45 06:50 Creatine Kinase 254 H CK-MB (CK-2) 2.81 2.13 Troponin I 0.023 0.014 05/07/17 05/07/17 06:50 13:07 Creatine Kinase 238 H CK-MB (CK-2) 2.33 Troponin I 0.016 Impressions: Chest X-Ray 05/06/17 19:12 IMPRESSION: NO ACUTE RADIOGRAPHIC FINDING IN THE CHEST. Abdomen/Pelvis CT 05/06/17 20:05 IMPRESSION: No evidence of acute intra-abdominal infectious/ inflammatory process to correlate to the patient's reported left-sided abdominal pain. Chest CT 05/06/17 20:05 IMPRESSION: No evidence of acute intrathoracic abnormality to correlate to the patient's reported syncope. Carotid Doppler Study 05/08/17 00:00 IMPRESSION: NO HEMODYNAMICALLY SIGNIFICANT STENOSIS. Qualifiers PATEINT BEING DISCHARGED WITH ANY OF THE FOLLOWING DIAGNOSIS?: No Plan Time Spent: Less than 30 Minutes
[2017-05-08 18:11] VITALS: BP 142/89
[2017-05-08] MEDS ORDERED: VALSARTAN 160 MG TABLET PO SCH (22:00)
== END 2017-05-08 18:59 | disposition home or self-care (01) ==
LOC: ER 18:20 → EH 21:55 → UNDOADMOB 22:18 → EH 22:18 → 4N 05-07 01:55
PROVIDERS: ADMIT Internal Medicine; ATTEND Internal Medicine
DX: R55 Syncope and collapse (principal); I50.9 Heart failure, unspecified; I50.22 Chronic systolic (congestive) heart failure; E11.65 Type 2 diabetes mellitus with hyperglycemia; E78.5 Hyperlipidemia, unspecified; R10.9 Unspecified abdominal pain; E66.9 Obesity, unspecified; I27.2 Other secondary pulmonary hypertension; I25.10 Atherosclerotic heart disease of native coronary artery without angina pectoris; G47.9 Sleep disorder, unspecified; Z79.899 Other long term (current) drug therapy; Z79.82 Long term (current) use of aspirin; Z79.4 Long term (current) use of insulin; Z95.1 Presence of aortocoronary bypass graft; Z82.49 Family history of ischemic heart disease and other diseases of the circulatory system; Z68.36 Body mass index [BMI] 36.0-36.9, adult
CPT/HCPCS: 93005; 99291; 36415 ×2; 82553; 82962 ×2; 82550 ×2; 83735; 85025 ×2; 80048 ×2; 84484 ×2; 80307; 83880; 93306; 93880; 71010; 71260; 74177; 93010; G0378 ×4; J1815 ×4; J1644 ×2; J3490 ×12; J1940

== ENCOUNTER 2018-07-04 01:33 | Inpatient (IN) | payer MEDICAID ==
[2018-07-04] MEDS ORDERED: RINGERS SOLUTION,LACTATED 1,000 ML IV ONE (01:50)
--- NOTE | 2018-07-04 01:54 | ER Document Report ---
ED Medical Screen (RME) - General Chief Complaint: Leg Pain Stated Complaint: LEG CRAMPS Time Seen by Provider: 07/04/18 01:48 Mode of Arrival: Medic Information source: Patient Notes: Patient states he was at home in his legs feet were cramping real bad. States he tried to call his sister but she was working. When he could not call his sister, he called 911 and came to the emergency room his blood sugar was over 400 in the EMS. I have greeted and performed a rapid initial assessment of this patient. A comprehensive ED assessment and evaluation of the patient, analysis of test results and completion of medical decision making process will be conducted by an additional ED providers. TRAVEL OUTSIDE OF THE [place] IN LAST 30 DAYS: No - Related Data Allergies/Adverse Reactions: No Known Allergies Allergy (Verified 12/29/16 11:46) Past Medical History - Past Medical History Cardiac Medical History: Reports: Hx Congestive Heart Failure - Ejection fraction of 20%, Hx Coronary Artery Disease, Hx Heart Attack - possible mild heart attack , Hx Hypercholesterolemia, Hx Hypertension Denies: Hx DVT, Hx Pulmonary Embolism Pulmonary Medical History: Reports: Hx Pneumonia Denies: Hx Asthma, Hx Bronchitis, Hx COPD Neurological Medical History: Denies: Hx Cerebrovascular Accident, Hx Seizures Endocrine Medical History: Reports: Hx Diabetes Mellitus Type 2. Denies: Hx Hyperthyroidism, Hx Hypothyroidism Renal/ Medical History: Denies: Hx Peritoneal Dialysis GI Medical History: Denies: Hx Cirrhosis, Hx Gastroesophageal Reflux Disease, Hx Hepatitis Musculoskeltal Medical History: Denies Hx Arthritis Psychiatric Medical History: Denies: Hx Depression Infectious Medical History: Denies: Hx Hepatitis Past Surgical History: Reports: Hx Cardiac Catheterization - Performed recently , Hx Cardiac Surgery - bypass 01/19/12, Hx Coronary Artery Bypass Graft - CABGx3 in 2011, Hx Tonsillectomy - Immunizations Hx Diphtheria, Pertussis, Tetanus Vaccination: Yes Physical Exam - Vital signs Vitals: Temp Pulse Resp BP Pulse Ox 98.5 F 94 18 135/116 H 100 07/04/18 01:33 07/04/18 01:33 07/04/18 01:33 07/04/18 01:33 07/04/18 01:33 Course - Vital Signs Vital signs: Temp Pulse Resp BP Pulse Ox 98.5 F 94 18 135/116 H 100 07/04/18 01:33 07/04/18 01:33 07/04/18 01:33 07/04/18 01:33 07/04/18 01:33 Doctor's Discharge - Discharge Referrals: GIANLUCA JULIO MD [Primary Care Provider] - Follow up as needed
[2018-07-04 02:18] LABS: VENOUS BLOOD HCO3 29.7 mmol/L (20-32); VENOUS BLOOD PCO2 58.5 mmHg (35-63); VENOUS BLOOD PH 7.32 (7.30-7.42)
[2018-07-04 02:19] LABS: ABSOLUTE BASOPHILS # (AUTO) 0.1 10^3/uL (0.0-0.2); ABSOLUTE EOSINOPHILS # (AUTO) 0.2 10^3/uL (0.0-0.6); ABSOLUTE LYMPHOCYTES (AUTO) 2.1 10^3/uL (0.5-4.7); ABSOLUTE MONOCYTES (AUTO) 0.7 10^3/uL (0.1-1.4); ABSOLUTE NEUT (AUTO) 4.9 10^3/uL (1.7-8.2); BASOPHILS % (AUTO) 0.8 % (0-2); HEMATOCRIT 44.3 % (37.9-51.0); HEMOGLOBIN 15.6 g/dL (13.5-17.0); LYMPHOCYTES % (AUTO) 26.8 % (13-45); MEAN CORPUSCULAR HGB CONC 35.3 g/dL (32.0-36.0); MEAN CORPUSCULAR VOLUME 91 fl (80-97); MONOCYTES % (AUTO) 8.4 % (3-13); PLATELET COUNT 219 10^3/uL (150-450); RED BLOOD COUNT 4.88 10^6/uL (4.35-5.55); TOTAL CELLS COUNTED % (AUTO) 100 %
[2018-07-04 04:10] LABS: ALANINE AMINOTRANSFERASE 18 U/L (21-72); ALKALINE PHOSPHATASE 125 U/L (38-126); ANION GAP 12 (5-19); ASPARTATE AMINO TRANSFERASE 17 U/L (17-59); BILIRUBIN,DIRECT 0.7 mg/dL (0.0-0.4); BILIRUBIN,TOTAL 1.4 mg/dL (0.2-1.3); BLOOD UREA NITROGEN 18 mg/dL (7-20); CALCIUM 9.5 mg/dL (8.4-10.2); CARBON DIOXIDE 31 mmol/L (22-30); CHLORIDE 94 mmol/L (98-107); GLUCOSE 341 mg/dL (75-110); POTASSIUM 3.8 mmol/L (3.6-5.0); SODIUM 137.4 mmol/L (137-145); TOTAL PROTEIN 7.8 g/dL (6.3-8.2)
[2018-07-04 04:33] LABS: APPEARANCE,URINE CLEAR; BILIRUBIN,URINE NEGATIVE (NEGATIVE); COLOR,URINE YELLOW; GLUCOSE, URINE >=500 mg/dL (NEGATIVE); KETONES,URINE NEGATIVE (NEGATIVE); LEUKOCYTE ESTERASE,URINE NEGATIVE (NEGATIVE); NITRITE,URINE NEGATIVE (NEGATIVE); PROTEIN,URINE NEGATIVE (NEGATIVE); URINE SPECIFIC GRAVITY 1.024
[2018-07-04] MEDS ORDERED: INSULIN REG, HUMAN 100 UNIT/ML 3 ML VIAL (PYX) SUBCUT ONE (04:58)
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
[2018-07-04 05:31] LABS: CREATINE KINASE MB 0.74 ng/mL (<4.55); TROPONIN I 0.026 ng/mL
--- NOTE | 2018-07-04 07:08 | RADIOLOGY REPORT (SQ) ---
EXAM DESCRIPTION: X-ray single view chest. CLINICAL HISTORY: 57 years Male, chest pains COMPARISON: Prior chest x-ray performed on 05/06/2017. TECHNIQUE: Single portable view of the chest performed on Date and time FINDINGS: The lungs are well expanded and are clear. There is no evidence of a pneumothorax. The cardiac silhouette is normal in size and configuration. There are remote postsurgical changes of the mediastinum. There is a new single lead left subclavian pacemaker. The mediastinal contours are normal. No acute osseous abnormality is identified. No focal soft tissue abnormalities are seen. IMPRESSION: 1. No acute intrathoracic disease. 2. Remote postsurgical changes of the mediastinum. 3. New left subclavian single lead pacemaker.
[2018-07-04] MEDS ORDERED: INSULIN LISPRO 100 UNIT/ML 3 ML VIAL SUBCUT ONE (09:42)
[2018-07-04] MEDS: ENOXAPARIN SODIUM INJ 30 MG/0.3 ML DISP.SYRIN SUBCUT SCH (10:07)
--- NOTE | 2018-07-04 11:46 | EKG REPORT ---
SEVERITY:- ABNORMAL ECG - SINUS RHYTHM ATRIAL PREMATURE COMPLEX PROBABLE LEFT ATRIAL ABNORMALITY NONSPECIFIC INTRAVENTRICULAR CONDUCTION DELAY LEFT VENTRICULAR HYPERTROPHY : Confirmed by: Nancy Petty MD 04-Jul-2018 11:45:17
--- NOTE | 2018-07-04 11:46 | EKG REPORT ---
SEVERITY:- ABNORMAL ECG - SINUS RHYTHM PROBABLE LEFT ATRIAL ABNORMALITY NONSPECIFIC INTRAVENTRICULAR CONDUCTION DELAY LVH WITH SECONDARY REPOLARIZATION ABNORMALITY : Confirmed by: Nancy Petty MD 04-Jul-2018 11:45:22
[2018-07-04] MEDS ORDERED: DEXTROSE 40% GEL 15 GM TUBE PO PRN ×2 (12:17)
[2018-07-04] MEDS ORDERED: DEXTROSE 50%-WATER 25 GM/50 ML DISP.SYRIN IV PRN ×2 (12:17)
[2018-07-04] MEDS ORDERED: GLUCAGON,HUMAN RECOMB 1 MG INJ IM PRN (12:17)
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
[2018-07-04 20:39] LABS: URINE CREATININE 62.3 mg/dL (22-328)
[2018-07-04] MEDS: INSULIN LISPRO 100 UNIT/ML 3 ML VIAL SUBCUT PRN (23:25)
[2018-07-05] MEDS ORDERED: INSULIN LISPRO 100 UNIT/ML 3 ML VIAL SUBCUT ONE ×2 (01:45→04:15)
[2018-07-05 05:21] LABS: ABSOLUTE EOSINOPHILS # (AUTO) 0.2 10^3/uL (0.0-0.6); ABSOLUTE LYMPHOCYTES (AUTO) 2.5 10^3/uL (0.5-4.7); ABSOLUTE MONOCYTES (AUTO) 0.6 10^3/uL (0.1-1.4); ABSOLUTE NEUT (AUTO) 2.8 10^3/uL (1.7-8.2); BASOPHILS % (AUTO) 0.6 % (0-2); EOSINOPHILS % (AUTO) 2.9 % (0-6); HEMATOCRIT 41.5 % (37.9-51.0); HEMOGLOBIN 14.4 g/dL (13.5-17.0); LYMPHOCYTES % (AUTO) 40.5 % (13-45); MEAN CORPUSCULAR HEMOGLOBIN 31.4 pg (27.0-33.4); MEAN CORPUSCULAR HGB CONC 34.8 g/dL (32.0-36.0); MEAN CORPUSCULAR VOLUME 90 fl (80-97); MONOCYTES % (AUTO) 10.4 % (3-13); PLATELET COUNT 167 10^3/uL (150-450); RED CELL DISTRIBUTION WIDTH 13.5 % (11.5-14.0); SEGMENTED NEUTROPHILS % (AUTO) 45.6 % (42-78); TOTAL CELLS COUNTED % (AUTO) 100 %
[2018-07-05 05:41] LABS: ALANINE AMINOTRANSFERASE 26 U/L (21-72); ALBUMIN 3.6 g/dL (3.5-5.0); ALKALINE PHOSPHATASE 98 U/L (38-126); ANION GAP 10 (5-19); ASPARTATE AMINO TRANSFERASE 23 U/L (17-59); BILIRUBIN,DIRECT 0.4 mg/dL (0.0-0.4); BLOOD UREA NITROGEN 20 mg/dL (7-20); CALCIUM 9.3 mg/dL (8.4-10.2); CARBON DIOXIDE 31 mmol/L (22-30); CHLORIDE 99 mmol/L (98-107); GLUCOSE 289 mg/dL (75-110); POTASSIUM 4.2 mmol/L (3.6-5.0); SODIUM 139.7 mmol/L (137-145); TOTAL PROTEIN 6.9 g/dL (6.3-8.2)
[2018-07-05] MEDS: INSULIN LISPRO 100 UNIT/ML 3 ML VIAL SUBCUT PRN ×4 (09:13→23:19)
[2018-07-05] MEDS: ENOXAPARIN SODIUM INJ 30 MG/0.3 ML DISP.SYRIN SUBCUT SCH (09:58)
[2018-07-05] MEDS ORDERED: CARVEDILOL 37.5 MG PO SCH (10:15)
[2018-07-05] MEDS: FUROSEMIDE 40 MG TABLET PO SCH ×2 (11:06→17:46)
[2018-07-05] MEDS: ASPIRIN 325 MG TABLET PO SCH (11:06)
[2018-07-05] MEDS: LISINOPRIL 10 MG TABLET PO SCH ×2 (11:06→17:45)
[2018-07-05] MEDS: CARVEDILOL 12.5 MG TABLET PO SCH ×2 (11:06→22:58)
--- NOTE | 2018-07-05 11:11 | PDOC CONSULTATION ---
Consultation Consult Date: 07/05/18 Attending physician:: MOR HARRIS Consult reason:: Chest pain, abnormal EKG History of Present Illness Admission Date/PCP: 07/04/18 08:17 GIANLUCA JULIO MD Patient complains of: Leg cramps and chest pain History of Present Illness: JAMES FLORIAN is a 57 year old male with a PMH of CABG, insulin-dependent diabetes, hypertension, hyperlipidemia, CHF, AICD. He presented to the ED with complaints of leg cramps and chest pain. The patient states he was sitting on his couch when he developed leg cramps and subsequently developed chest pain, SOB, and diaphoresis. This prompted the patient to call EMS. Of note, the patient states he has been out of his Metformin for "a few months now." Denies any other changes to his medications. The patient is currently displaced due to the recent hurricaine and lost his glucometer. As a result he has not been checking his blood glucose, he simply gives himself "my normal insulin." Upon arrival to the ED, the patient stated he was still experiencing intermittent non -radiating chest pain. He denies fever, nausea or vomiting. Blood glucose on arrival to [facility] was 381 mg/dl. Other significant lab work includes Hgb A1cC > 14. Creatinine 1.62 and a slightly elevated troponin 0.026. All other lab work, including CBC, completely benign. EKG demonstrates NSR, evidence of LVH but no infarction or ischemia. CXR benign. Plan to admit patient to hospitalist service for chest pain workup and treatment of uncontrolled diabetes. Patient claims that he was supposed to have stress test on Monday but due to inclement weather, this was canceled. Would like to get this done while he is in the hospital. Patient describes history of coronary artery disease having had coronary artery bypass graft surgery in 2011. Above history obtained by the hospitalist was also confirmed. Past Medical History Cardiac Medical History: Reports: Congestive Heart Failure - Ejection fraction of 20%, Coronary Artery Disease, Myocardial Infarction - possible mild heart attack , Hyperlipidema, Hypertension Denies: DVT, Pulmonary Embolism Pulmonary Medical History: Reports: Pneumonia Denies: Asthma, Bronchitis, Chronic Obstructive Pulmonary Disease (COPD) Neurological Medical History: Denies: Seizures Endocrine Medical History: Reports: Diabetes Mellitus Type 2 Denies: Hyperthyroidism, Hypothyroidism GI Medical History: Denies: Cirrhosis, Gastroesophageal Reflux Disease, Hepatitis Musculoskeltal Medical History: Denies: Arthritis Psychiatric Medical History: Denies: Depression Hematology: Denies: Anemia Past Surgical History Past Surgical History: Reports: Cardiac Catheterization - Performed recently, Coronary Artery Bypass Graft - CABGx3 in 2012, Internal Defibrillator, Tonsillectomy Social History Information Source: Patient Lives with: Alone Smoking Status: Former Smoker Frequency of Alcohol Use: None Hx Recreational Drug Use: No Drugs: None Hx Prescription Drug Abuse: No - Advance Directive Resuscitation Status: Full Code Family History Family History: CAD, Hypertension Parental Family History Reviewed: Yes Children Family History Reviewed: Yes Sibling(s) Family History Reviewed.: Yes Medication/Allergy Home Medications: Acetaminophen [Tylenol Extra Strength 500 mg Tablet] 1,000 mg PO Q6HP PRN Aspirin [Aspirin 325 mg Tablet] 325 mg PO DAILY 07/04/18 Atorvastatin Calcium [Lipitor 40 mg Tablet] 40 mg PO QHS 07/04/18 Carvedilol [Coreg 25 mg Tablet] 37.5 mg PO Q12 07/04/18 Diphenhydramine HCl [Benadryl] 50 mg PO QAM 07/04/18 Diphenhydramine HCl [Benadryl] 50 mg PO QPM 07/04/18 Docusate Sodium [Stool Softener] 200 mg PO BIDP PRN 07/04/18 Furosemide [Lasix 40 mg Tablet] 40 mg PO BID 07/04/18 Insulin Glargine,Hum.rec.anlog [Lantus] 20 unit SQ MEALS 07/04/18 Insulin Lispro [Humalog Insulin 100 Unit/1 ml 3 ml Vial] 8 unit SUBCUT MEALS Lisinopril [Prinivil 40 mg Tablet] 40 mg PO QAM 07/04/18 Lisinopril [Prinivil] 20 mg PO QPM 07/04/18 Metformin HCl [Glucophage 500 mg Tablet] 1,000 mg PO BID 07/04/18 Multivitamin [Multivitamins] 1 each PO DAILY 07/04/18 Nitroglycerin [Nitrostat 0.4 mg (1/150 Gr) Tabs 25/Bottle] 1 tab SL Q5MP PRN Allergies/Adverse Reactions: No Known Allergies Allergy (Verified 12/29/16 11:46) Review of Systems Review of Systems: Please see history of present illness and past medical history as wall. Constitutional: No fever or chills reported. Head : No recent chronic headaches, recent head injury. Eyes: No recent eye pain, diplopia, redness, discharge, acute visual changes. Ears: No recent chronic ear pain, acute hearing loss, ear discharge. Oral cavity: No recent ulcerations, bleeding, oral cavity discomfort. Neck: No recent acute neck pain reported. Hematologic: No recent easy bruising or bleeding. Lymphatic: No recent lymph node enlargement reported. Cardiovascular system review: See history of present illness. Respiratory system review: No hemoptysis or blood clots in the lungs reported. Mild Shortness of breath on exertion Gastrointestinal system review: Negative for any recent acute hematemesis, melena. Genitourinary system review: No recent acute or chronic hematuria, flank pain, UTI etc. reported. Skin system review: Negative for any recent abnormal bruising, no rash, no pruritus reported. Neurologic: No prior history of strokes, mini strokes, seizure disorder. Psychologic: No history of major psychosis or major depression reported. Musculoskeletal: Minor aches and pains reported. No acute joint swelling reported. Endocrine: No recent polyuria, polydipsia, recent heat or cold intolerance. Physical Exam Vital Signs: Temp Pulse Resp BP Pulse Ox 97.7 F 68 16 160/86 H 100 07/05/18 07:20 07/05/18 07:20 07/05/18 07:20 07/05/18 07:20 07/05/18 07:20 Intake & Output 07/04/18 07/05/18 07/06/18 06:59 06:59 06:59 Intake Total 350 Output Total 0 Balance 350 Weight 128.6 kg Exam: GENERAL: well-nourished and in no acute distress. Alert and oriented x3 HEAD: Atraumatic, normocephalic. EYES: Pupils equal round and reactive to light, extraocular movements intact, sclera anicteric, conjunctiva are normal. ENT: TMs normal, nares patent, oropharynx clear without exudates. Moist mucous membranes. No oral ulcerations or bleeding gums noted NECK: supple without lymphadenopathy. Trachea is central. No cervical or axillary lymphadenopathy noted. Carotids are 2+, JVD WNL LUNGS: Respiration seems nonlabored, no significant accessory muscle action noted. Breath sounds clear to auscultation bilaterally and equal noted. No wheezes rales or rhonchi noted. No significant dullness noted on percussion. CHEST: Palpation of the chest wall shows no significant chest wall tenderness. HEART: [place] [employer], No PSH, 1/6 TRISH aortic area, 1/6 arredondo systolic murmur mitral area, no rubs, no gallops. ABDOMEN: Soft, no significant tenderness appreciated, normoactive bowel sounds. No guarding, no rebound. No rigidity noted . No masses appreciated. EXTREMITIES: Pedal pulses are 1-2+, no calf tenderness noted. No clubbing or cyanosis. negative pedal edema noted. Pedal pulses are noted to be diminished. NEUROLOGICAL: Focused neurological exam showed no significant neurologic deficit. Normal speech, no focal weakness appreciated. PSYCH: Normal mood, normal affect. Judgment and insight within normal limits. SKIN: No significant ecchymosis, skin is noted to be warm. MUSCULOSKELETAL EXAM: No significant acute joint swelling noted. Results Laboratory Results: 07/05/18 04:24 07/05/18 04:24 07/05/18 07/05/18 04:24 04:24 WBC 6.0 RBC 4.60 Hgb 14.4 Hct 41.5 MCV 90 MCH 31.4 MCHC 34.8 RDW 13.5 Plt Count 167 Seg Neutrophils % 45.6 Lymphocytes % 40.5 Monocytes % 10.4 Eosinophils % 2.9 Basophils % 0.6 Absolute Neutrophils 2.8 Absolute Lymphocytes 2.5 Absolute Monocytes 0.6 Absolute Eosinophils 0.2 Absolute Basophils 0.0 Sodium 139.7 Potassium 4.2 Chloride 99 Carbon Dioxide 31 H Anion Gap 10 BUN 20 Creatinine 1.21 Est GFR ( Amer) > 60 Est GFR (Non-Af Amer) > 60 Glucose 289 H Calcium 9.3 Magnesium 2.5 H Total Bilirubin 1.0 AST 23 ALT 26 Alkaline Phosphatase 98 Total Protein 6.9 Albumin 3.6 07/04/18 07/04/18 07/05/18 08:20 13:58 04:24 Troponin I 0.023 0.019 NT-Pro-B Natriuret Pep 306 EKG Comments: Sinus rhythm with minor nonspecific ST segment changes Impressions: Chest X-Ray 07/04/18 04:13 IMPRESSION: 1. No acute intrathoracic disease. 2. Remote postsurgical changes of the mediastinum. 3. New left subclavian single lead pacemaker. Assessment & Plan - Diagnosis (1) Chest pain Qualifiers: Chest pain type: unspecified Qualified Code(s): R07.9 - Chest pain, unspecified Is this a current diagnosis for this admission?: Yes (2) Coronary artery disease Qualifiers: Coronary Disease-Associated Artery/Lesion type: unspecified vessel or lesion type Associated angina: angina presence unspecified Is this a current diagnosis for this admission?: Yes (3) Diabetes mellitus type 2, uncontrolled Is this a current diagnosis for this admission?: Yes (4) Obesity (BMI 30-39.9) Is this a current diagnosis for this admission?: Yes (5) Sleep disorder Is this a current diagnosis for this admission?: Yes (6) Hypertension Qualifiers: Hypertension type: essential hypertension Qualified Code(s): I10 - Essential (primary) hypertension Is this a current diagnosis for this admission?: Yes - Notes Notes: Chest pain: Patient has some typical and atypical features of chest pain. Cardiac enzymes so far has been negative. Patient has known CAD and is status post CABG 6 years ago. Electrocardiogram nonspecific ST segment changes. Multiple differential diagnoses exist in this patient. In descending order of probability this includes underlying coronary artery disease, gastroesophageal reflux, musculoskeletal pain, referred pain from elsewhere, anxiety panic disorder etc.Patient has significant cardiac risk factors, which indicates that there is a intermediate probability of chest discomfort coming from underlying CAD. Feel that it would need to be evaluated further. Discussed evaluation to assess this. In this regard risk benefits of nuclear stress test and other alternative processes were discussed in detail. The patient prefers to undergo nuclear stress test. The small risk of radiation, myocardial infarction, , cardiac arrhythmias, respiratory distress etc. were discussed. Patient understood the risks and gave informed consent. Nuclear stress test was therefore scheduled. For risk evaluation, patient is also being scheduled for a 2-D echocardiogram. Patient questions were answered. CAD: Please see plans under chest pain. Medical regimen will be optimized. Diabetes: Currently stable. Recommend good control but avoid any hyper or hypoglycemia. Hypertension: Reasonably well controlled. Blood pressure goal in this patient is 135/85 or less. This was discussed with the patient. Currently blood pressure under reasonable control. Better medication for this patient are GERTRUDE inhibitor/ARB/beta krista etc. discussed side effects of uncontrolled hypertension and also severe hypotension. Obesity: Patient will benefit from weight loss. This was explained. Sleep disorder: Patient has high probability of having underlying sleep apnea syndrome given his physical exam, oropharyngeal exam and comorbid diagnosis. Patient has been recommended to undergo a sleep study. - Time Time Spent: 30 to 50 Minutes - CODE STATUS was discussed, patient remains full code. Multiple medical problems were addressed. More than 50% of the time spent coordinating care, discussing management plans with involved caregivers. Management plans discussed with involved personnels. Medical decision making was of moderate to high complexity, patient's has multiple comorbidities. Medications reviewed and adjusted accordingly: Yes
--- NOTE | 2018-07-05 13:48 | EKG REPORT ---
SEVERITY:- ABNORMAL ECG - SINUS RHYTHM PROBABLE LEFT ATRIAL ABNORMALITY NONSPECIFIC INTRAVENTRICULAR CONDUCTION DELAY : Confirmed by: Nancy Petty MD 05-Jul-2018 13:46:51
[2018-07-05] MEDS: INSULIN GLARGINE,HUM.REC.ANLOG 1,000 UNIT/10 ML UNIT SUBCUT SCH (17:45)
[2018-07-05] MEDS ORDERED: (PENDING PHARMACY ID) (Lisinopril [Prinivil] 20 MG) PO SCH (18:00)
--- NOTE | 2018-07-05 18:25 | XCELERA REPORT ---
[address] [address] Transthoracic Echocardiogram Report Name: JAMES FLORIAN Age: 57 yrs Gender: Male : 1960 Patient Status: Inpatient Patient Location: [facility]^A Study Date: 07/05/2018 01:41 PM Height: 74 in Weight: 283 lb BSA: 2.5 m2 Procedure: A complete two-dimensional transthoracic echocardiogram was performed (2D, M-mode, spectral and color flow Doppler). The study was technically difficult with many images being suboptimal in quality. Reason For Study: Chest pain Ordering Physician: NATAN FELIX Performed By: Cleo Hankins Interpretation Summary The study was technically difficult with many images being suboptimal in quality. Left ventricular systolic function is moderately reduced. LV EF is approx 40% Consider additional methods to assess LVEF such as MUGA scan, CTA heart, cardiac MRI, ALBAN, etc. if clinically indicated. The left ventricle is mildly dilated. There is mild concentric left ventricular hypertrophy. Doppler measurements suggest pseudonormalized left ventricular relaxation, which is associated with grade II/IV or mild to moderate diastolic dysfunction Regional wall motion abnormalities cannot be excluded due to limited visualization. The right ventricle is not well visualized secondary to technical limitations Right atrium not well visualized secondary to technical limitations The left atrium is mildly dilated. There is no mitral valve stenosis. There is a trace to mild amount of mitral regurgitation There is no aortic valve stenosis No aortic regurgitation is present. There is a trace or physiologic amount of tricuspid regurgitation Tricuspid regurgitation jet envelope not well defined to measure RV systolic pressure accurately. The aortic root is not well visualized. The inferior vena cava appeared normal and decreased > 50% with respiration (RAP 5-10 mmHg) There is no pericardial effusion. MMode/2D Measurements & Calculations RVDd: 3.7 cm LVIDd: 5.7 cm FS: 21.4 % Ao root diam: 3.2 cm IVSd: 1.2 cm LVIDs: 4.5 cm EDV(Teich): 159.1 ml Ao root area: 8.3 cm2 LVPWd: 1.2 cm ESV(Teich): 91.0 ml LA dimension: 4.3 cm EF(Teich): 42.8 % LVOT diam: 2.2 cm LVOT area: 3.8 cm2 Doppler Measurements & Calculations MV E max seb: MV P1/2t max seb: Ao V2 max: LV V1 max P.6 cm/sec 67.1 cm/sec 100.4 cm/sec 2.2 mmHg MV A max seb: MV P1/2t: 50.2 msec Ao max P.0 mmHg LV V1 max: 75.0 cm/sec MVA(P1/2t): 4.4 cm2 MOR(V,D): 2.7 cm2 73.5 cm/sec MV E/A: 0.90 MV dec slope: 391.9 cm/sec2 MV dec time: 0.17 sec PA V2 max: TR max seb: MV P1/2t-pr_phl: 85.3 cm/sec 76.8 cm/sec 50.2 msec PA max PG: TR max P.4 mmHg 2.9 mmHg Left Ventricle The left ventricle is mildly dilated. There is mild concentric left ventricular hypertrophy. Left ventricular systolic function is moderately reduced. LV EF is approx 40%. Consider additional methods to assess LVEF such as MUGA scan, CTA heart, cardiac MRI, ALBAN, etc. if clinically indicated. Doppler measurements suggest pseudonormalized left ventricular relaxation, which is associated with grade II/IV or mild to moderate diastolic dysfunction. Regional wall motion abnormalities cannot be excluded due to limited visualization. Right Ventricle The right ventricle is not well visualized secondary to technical limitations. Right ventricular function cannot be assessed due to poor image quality. Atria Right atrium not well visualized secondary to technical limitations. The left atrium is mildly dilated. Interarterial septum not well visualized and not well dopplered. Cannot comment on ASD/PFO presence. Mitral Valve The mitral valve is grossly normal. There is no mitral valve stenosis. There is a trace to mild amount of mitral regurgitation. Aortic Valve The aortic valve is grossly normal. There is no aortic valve stenosis. No aortic regurgitation is present. Tricuspid Valve The tricuspid valve is not well visualized secondary to technical limitations. There is no tricuspid stenosis. There is a trace or physiologic amount of tricuspid regurgitation. Tricuspid regurgitation jet envelope not well defined to measure RV systolic pressure accurately. Pulmonic Valve The pulmonic valve is not well visualized. Great Vessels The aortic root is not well visualized. The inferior vena cava appeared normal and decreased > 50% with respiration (RAP 5-10 mmHg). Effusions There is no pericardial effusion. : NATAN FELIX > Natan Felix
[2018-07-05] MEDS: ATORVASTATIN CALCIUM 40 MG TABLET PO SCH (22:58)
--- NOTE | 2018-07-06 06:59 | PDOC PROGRESS REPORT ---
<AUSTENRAHAT A - Last Filed: 07/06/18 06:58> Subjective Progress Note for:: 07/05/18 Subjective:: JAMES FLORIAN is a 57 year old male with a PMH of CABG, insulin-dependent diabetes, hypertension, hyperlipidemia, CHF, AICD. He presented to the ED with complaints of leg cramps and chest pain. The patient states he was sitting on his couch when he developed leg cramps and subsequently developed chest pain, SOB, and diaphoresis. The patient was seen this morning on rounds. He is resting comfortably in bed on room air. The patient c/o bilateral leg pain and parasthesia to bothe feet. He also endorses intermittent very mild chest pain - not associated with activity. The patient states he "typically has this type of chest pain, even when at home." Slight EKG changes noted this morning. New T wave inversion in leads V1-6. Cardiology consulted. Additionally, when the patient was asked about his diabetes treatment regimen ( Hgb A1C>14) the patient admits that he has been out of his metformin for ' months.' He states he has been taking Lantus 20U BID and he takes 8U humalog 1hr AFTER eating. When questioned about his humalog regimen, the patient states , 'that's what my doctor told me to do.' Plan for asthma educator to meet with patient today. Cardiology consulted regarding EKG changes, appreciate their recommendations. Reason For Visit: HYPERGLYCEMIA,CHEST PAIN Physical Exam Vital Signs: Temp Pulse Resp BP Pulse Ox 98.3 F 64 20 155/86 H 96 07/06/18 00:13 07/06/18 01:24 07/06/18 04:00 07/06/18 00:13 07/06/18 00:13 Intake & Output 07/04/18 07/05/18 07/06/18 06:59 06:59 06:59 Intake Total 350 1355 Output Total 0 Balance 350 1355 Weight 128.6 kg 126.4 kg General appearance: PRESENT: no acute distress, morbidly obese, well-developed, well-nourished Head exam: PRESENT: atraumatic, normocephalic Eye exam: PRESENT: conjunctiva pink, EOMI, PERRLA. ABSENT: scleral icterus Ear exam: PRESENT: normal external ear exam Mouth exam: PRESENT: moist, tongue midline Neck exam: ABSENT: carotid bruit, JVD, lymphadenopathy, thyromegaly Respiratory exam: PRESENT: clear to auscultation ele, symmetrical, unlabored. ABSENT: rales, rhonchi, wheezes Cardiovascular exam: PRESENT: RRR, +S1, +S2. ABSENT: diastolic murmur, rubs, systolic murmur Pulses: PRESENT: normal radial pulses, normal dorsalis pedis pul Vascular exam: PRESENT: normal capillary refill GI/Abdominal exam: PRESENT: normal bowel sounds, soft. ABSENT: distended, guarding, mass, organolmegaly, rebound, tenderness Rectal exam: PRESENT: deferred Extremities exam: PRESENT: full ROM, pedal edema, +1 edema - bilateral - below the knee. ABSENT: calf tenderness, clubbing Musculoskeletal exam: PRESENT: ambulatory, full ROM Neurological exam: PRESENT: alert, awake, oriented to person, oriented to place , oriented to time, oriented to situation Psychiatric exam: PRESENT: appropriate affect, normal mood Skin exam: PRESENT: dry, intact, warm. ABSENT: cyanosis, rash Results Laboratory Results: 07/05/18 04:24 07/05/18 04:24 07/04/18 07/04/18 07/05/18 08:20 13:58 04:24 Troponin I 0.023 0.019 NT-Pro-B Natriuret Pep 306 Impressions: Chest X-Ray 07/04/18 04:13 IMPRESSION: 1. No acute intrathoracic disease. 2. Remote postsurgical changes of the mediastinum. 3. New left subclavian single lead pacemaker. Status: Imported from PACS Assessment & Plan - Diagnosis (1) Chest pain QualifierTitle: Chest pain type: unspecified Qualified Code(s): R07.9 - Chest pain, unspecified Is this a current diagnosis for this admission?: Yes Plan: Unclear etiology at this time Slightly elevated troponin trending down 0.026-->0.023-->0.019 No longer trending EKG demonstrates NSR, (+) LVH, no infarction or ischemia. Cardiology consulted ECHOcardiogram and nuclear stress test pending (2) Coronary artery disease QualifierTitle: Coronary Disease-Associated Artery/Lesion type: unspecified vessel or lesion type Associated angina: angina presence unspecified Is this a current diagnosis for this admission?: Yes Plan: History of CAD, CABG, CT ASA and statin therapy (3) Diabetes mellitus type 2, uncontrolled Is this a current diagnosis for this admission?: Yes Plan: Patient endorses PMH of DM States he has not had his metformin in 'months' Likely noncompliant with home regimen given HGB A1C > 14 Consistent carb diet Accucheck ACHS Humalog SSI asthma educator met with patient today, recommends starting home dose Lantus, continuing SSI. Patient received extensive education regarding WHEN to administer humalog insulin (before meals, not after) Will resume metformin tomorrow (4) Hyperlipidemia Is this a current diagnosis for this admission?: Yes Plan: History of HLD Continue statin therapy (5) ARF (acute renal failure) Is this a current diagnosis for this admission?: Yes Plan: Resolved. Initial Creatinine 1.62 - elevated above baseline (1.2-1.3). Now 1.21 Likely secondary to noncompliance with DM and possibly antiHTN medication BUN is WNL, FeNa .4% suggestive of pre-renal ARF - Time Time Spent with patient: 15-24 minutes Medications reviewed and adjusted accordingly: Yes Anticipated discharge: Home Within: within 48 hours - Inpatient Certification Based on my medical assessment, after consideration of the patient's comorbidities, presenting symptoms, or acuity I expect that the services needed warrant INPATIENT care.: Yes I certify that my determination is in accordance with my understanding of Medicare's requirements for reasonable and necessary INPATIENT services [42 CFR 412.3e].: Yes Medical Necessity: Need For Continuous Telemetry Monitoring, Risk of Complication if Not Cared For in Hospital - Plan Summary Plan Summary: ECHOCARDIOGRAM AND STRESS TEST TOMORROW <PEPITO PLUMMER - Last Filed: 07/06/18 08:01> Subjective Reason For Visit: HYPERGLYCEMIA,CHEST PAIN Physical Exam Vital Signs: Temp Pulse Resp BP Pulse Ox 98.3 F 64 20 155/86 H 96 07/06/18 00:13 07/06/18 01:24 07/06/18 04:00 07/06/18 00:13 07/06/18 00:13 Intake & Output 07/05/18 07/06/18 07/07/18 06:59 06:59 06:59 Intake Total 350 1355 Output Total 0 Balance 350 1355 Weight 128.6 kg 126.4 kg Results Laboratory Results: 07/05/18 04:24 07/05/18 04:24 07/04/18 07/04/18 07/05/18 08:20 13:58 04:24 Troponin I 0.023 0.019 NT-Pro-B Natriuret Pep 306 Impressions: Chest X-Ray 07/04/18 04:13 IMPRESSION: 1. No acute intrathoracic disease. 2. Remote postsurgical changes of the mediastinum. 3. New left subclavian single lead pacemaker. Assessment & Plan - Plan Summary Plan Summary: I agree in full with the subjective and objective findings. I concur with the treatment plan as described above.
[2018-07-06] MEDS: CARVEDILOL 12.5 MG TABLET PO SCH ×2 (10:34→21:02)
[2018-07-06] MEDS: ASPIRIN 325 MG TABLET PO SCH (10:34)
[2018-07-06] MEDS: FUROSEMIDE 40 MG TABLET PO SCH ×2 (10:34→17:13)
[2018-07-06] MEDS: LISINOPRIL 10 MG TABLET PO SCH ×2 (10:34→17:13)
[2018-07-06] MEDS: ENOXAPARIN SODIUM INJ 30 MG/0.3 ML DISP.SYRIN SUBCUT SCH (10:35)
[2018-07-06] MEDS: INSULIN LISPRO 100 UNIT/ML 3 ML VIAL SUBCUT PRN ×2 (10:35→12:20)
[2018-07-06] MEDS: INSULIN GLARGINE,HUM.REC.ANLOG 1,000 UNIT/10 ML UNIT SUBCUT SCH (10:35)
[2018-07-06] MEDS: MULTIVITAMIN TABLET PO SCH (10:44)
[2018-07-06] MEDS ORDERED: REGADENOSON INJ 0.4 MG/5 ML DISP.SYRIN IV ONE (14:41)
[2018-07-06] MEDS: METFORMIN HCL 500 MG TABLET PO SCH ×2 (14:49→16:41)
[2018-07-06] MEDS ORDERED: INSULIN LISPRO 100 UNIT/ML 3 ML VIAL SUBCUT ONE (17:00)
[2018-07-06] MEDS: INSULIN GLARGINE,HUM.REC.ANLOG 300 UNIT/3 ML INSULN.PEN SUBCUT SCH (17:13)
--- NOTE | 2018-07-06 19:57 | PDOC PROGRESS REPORT ---
Subjective Progress Note for:: 07/06/18 Subjective:: Patient was seen in the morning in the stress lab. Patient did get injected with technetium compound but due to equipment failure, stress images either could not be obtained or were technically uninterpretable. Patient staying back to have the stress test tomorrow hopefully, the problem will be fixed. Patient seems to be doing better with gradual improvement. Pt is denying any chest arm or neck discomfort. Patient denying any PND, orthopnea. Patient denied any sustained palpitations, dizziness, syncope, near syncope. Patient denying any fever chills. Patient denying any other significant discomfort. Patient is maintaining sinus rhythm. Review of systems: Rest review of systems negative. Medications: Medications have been reviewed. Reason For Visit: HYPERGLYCEMIA,CHEST PAIN Physical Exam Vital Signs: Temp Pulse Resp BP Pulse Ox 97.9 F 74 17 125/76 98 07/06/18 15:13 07/06/18 15:13 07/06/18 15:13 07/06/18 15:13 07/06/18 15:13 Intake & Output 07/05/18 07/06/18 07/07/18 06:59 06:59 06:59 Intake Total 240 Balance 240 Exam: GENERAL: well-nourished and in no acute distress. Alert and oriented x3 HEAD: Atraumatic, normocephalic. EYES: Pupils equal round and reactive to light, extraocular movements intact, sclera anicteric, conjunctiva are normal. ENT: TMs normal, nares patent, oropharynx clear without exudates. Moist mucous membranes. No oral ulcerations or bleeding gums noted NECK: supple without lymphadenopathy. Trachea is central. No cervical or axillary lymphadenopathy noted. Carotids are 2+, JVD WNL LUNGS: Respiration seems nonlabored, no significant accessory muscle action noted. Breath sounds clear to auscultation bilaterally and equal noted. No wheezes rales or rhonchi noted. No significant dullness noted on percussion. CHEST: Palpation of the chest wall shows no significant chest wall tenderness. Pacemaker noted on the left side. 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 ABDOMEN: Soft, no significant tenderness appreciated, normoactive bowel sounds. No guarding, no rebound. No rigidity noted . No masses appreciated. EXTREMITIES: Pedal pulses are 1-2+, no calf tenderness noted. No clubbing or cyanosis. negative pedal edema noted NEUROLOGICAL: Focused neurological exam showed no significant neurologic deficit. Normal speech, no focal weakness appreciated. PSYCH: Normal mood, normal affect. Judgment and insight within normal limits. SKIN: No significant ecchymosis, skin is noted to be warm. MUSCULOSKELETAL EXAM: No significant acute joint swelling noted. Results EKG Comments: Telemetry shows sinus rhythm without any sustained tachycardia or bradycardia Impressions: Chest X-Ray 07/04/18 04:13 IMPRESSION: 1. No acute intrathoracic disease. 2. Remote postsurgical changes of the mediastinum. 3. New left subclavian single lead pacemaker. Assessment & Plan - Diagnosis (1) Chest pain Qualifiers: Chest pain type: unspecified Qualified Code(s): R07.9 - Chest pain, unspecified Is this a current diagnosis for this admission?: Yes (2) Coronary artery disease Qualifiers: Coronary Disease-Associated Artery/Lesion type: unspecified vessel or lesion type Associated angina: angina presence unspecified Is this a current diagnosis for this admission?: Yes (3) Diabetes mellitus type 2, uncontrolled Is this a current diagnosis for this admission?: Yes (4) Obesity (BMI 30-39.9) Is this a current diagnosis for this admission?: Yes (5) Sleep disorder Is this a current diagnosis for this admission?: Yes (6) Hypertension Qualifiers: Hypertension type: essential hypertension Qualified Code(s): I10 - Essential (primary) hypertension Is this a current diagnosis for this admission?: Yes - Notes Notes: 2D echo results reviewed with the patient. It does show depressed LVEF. Patient to have stress test hopefully tomorrow. Otherwise if he does well on ambulation can be discharged with home medication with instruction for CHF, better control of diabetes etc. Chest pain: Patient has some typical and atypical features of chest pain. Cardiac enzymes so far has been negative. Patient has known CAD and is status post CABG 6 years ago. Electrocardiogram nonspecific ST segment changes. Multiple differential diagnoses exist in this patient. In descending order of probability this includes underlying coronary artery disease, gastroesophageal reflux, musculoskeletal pain, referred pain from elsewhere, anxiety panic disorder etc.Patient has significant cardiac risk factors, which indicates that there is a intermediate probability of chest discomfort coming from underlying CAD. Feel that it would need to be evaluated further. Discussed evaluation to assess this. Patient was scheduled for stress test today but could not be performed. 2D echo performed does show depressed LVEF. CAD: Please see plans under chest pain. Medical regimen will be optimized. Diabetes: Currently stable. Recommend good control but avoid any hyper or hypoglycemia. Hypertension: Reasonably well controlled. Blood pressure goal in this patient is 135/85 or less. This was discussed with the patient. Currently blood pressure under reasonable control. Better medication for this patient are GERTRUDE inhibitor/ARB/beta krista etc. discussed side effects of uncontrolled hypertension and also severe hypotension. Obesity: Patient will benefit from weight loss. This was explained. Sleep disorder: Patient has high probability of having underlying sleep apnea syndrome given his physical exam, oropharyngeal exam and comorbid diagnosis. Patient has been recommended to undergo a sleep study. - Time Time with patient: Greater than 35 minutes Medications reviewed and adjusted accordingly: Yes
--- NOTE | 2018-07-06 20:53 | PDOC PROGRESS REPORT ---
Subjective Progress Note for:: 07/06/18 Subjective:: JAMES FLORIAN is a 57 year old male with a PMH of CABG, insulin-dependent diabetes, hypertension, hyperlipidemia, CHF, AICD. He presented to the ED with complaints of leg cramps and chest pain. The patient states he was sitting on his couch when he developed leg cramps and subsequently developed chest pain, SOB, and diaphoresis. The patient was seen this morning on rounds. He is resting comfortably in bed on room air. The patient has no complaints at this time. The patient remains HYPERglycemic despite adding home dose Lantus to diabetes regimen. Plan to restart home dose of metformin and increase mealtime SSI. Plan for calender runner to meet with patient again today. Cardiology consulted, appreciate their recommendations. Reason For Visit: HYPERGLYCEMIA,CHEST PAIN Physical Exam Vital Signs: Temp Pulse Resp BP Pulse Ox 98.7 F 76 16 154/90 H 98 07/06/18 20:00 07/06/18 20:00 07/06/18 20:00 07/06/18 20:00 07/06/18 20:00 Intake & Output 07/05/18 07/06/18 07/07/18 06:59 06:59 06:59 Intake Total 240 Balance 240 General appearance: PRESENT: no acute distress, morbidly obese, well-developed, well-nourished Head exam: PRESENT: atraumatic Eye exam: PRESENT: conjunctiva pink, PERRLA Mouth exam: PRESENT: moist, neck supple, tongue midline Neck exam: PRESENT: full ROM Respiratory exam: PRESENT: clear to auscultation ele, symmetrical, unlabored Cardiovascular exam: PRESENT: RRR, +S1, +S2 Pulses: PRESENT: normal radial pulses, normal dorsalis pedis pul GI/Abdominal exam: PRESENT: normal bowel sounds, soft. ABSENT: tenderness Rectal exam: PRESENT: deferred Extremities exam: PRESENT: full ROM. ABSENT: pedal edema Musculoskeletal exam: PRESENT: ambulatory, full ROM Neurological exam: PRESENT: alert, awake, oriented to person, oriented to place , oriented to time, oriented to situation Psychiatric exam: PRESENT: appropriate affect Skin exam: PRESENT: dry, intact, normal color Results Impressions: Chest X-Ray 07/04/18 04:13 IMPRESSION: 1. No acute intrathoracic disease. 2. Remote postsurgical changes of the mediastinum. 3. New left subclavian single lead pacemaker. Status: Imported from PACS Assessment & Plan - Diagnosis (1) Chest pain Qualifiers: Chest pain type: unspecified Qualified Code(s): R07.9 - Chest pain, unspecified Is this a current diagnosis for this admission?: Yes Plan: Resolved Slightly elevated troponin trending down 0.026-->0.023-->0.019 No longer trending EKG demonstrates NSR, (+) LVH, no infarction or ischemia. Cardiology consulted ECHOcardiogram complete: LVEF 40%, grade II diastolic dysfunction Nuclear stress test pending (2) Coronary artery disease Qualifiers: Coronary Disease-Associated Artery/Lesion type: unspecified vessel or lesion type Associated angina: angina presence unspecified Is this a current diagnosis for this admission?: Yes Plan: History of CAD, CABG, MS ASA and statin therapy (3) Diabetes mellitus type 2, uncontrolled Is this a current diagnosis for this admission?: Yes Plan: Patient endorses PMH of DM States he has not had his metformin in 'months' Likely noncompliant with home regimen given HGB A1C > 14 Consistent carb diet Accucheck ACHS Humalog SSI general machinist met with patient again today. Home dose Lantus started yesterday. Patient remains HYPERglycemic (>350). Plan to initiate home dose metformin and increase SSI. (4) Hyperlipidemia Is this a current diagnosis for this admission?: Yes Plan: History of HLD Continue statin therapy (5) ARF (acute renal failure) Is this a current diagnosis for this admission?: Yes Plan: Resolved. Initial Creatinine 1.62 - elevated above baseline (1.2-1.3). Now 1.21 Likely secondary to noncompliance with DM and possibly antiHTN medication BUN is WNL, FeNa .4% suggestive of pre-renal ARF - Time Time Spent with patient: 15-24 minutes Medications reviewed and adjusted accordingly: Yes Anticipated discharge: Home Within: within 24 hours - Inpatient Certification Based on my medical assessment, after consideration of the patient's comorbidities, presenting symptoms, or acuity I expect that the services needed warrant INPATIENT care.: Yes I certify that my determination is in accordance with my understanding of Medicare's requirements for reasonable and necessary INPATIENT services [42 CFR 412.3e].: Yes Medical Necessity: Risk of Complication if Not Cared For in Hospital - Plan Summary Plan Summary: CONTINUE LANTUS. INCREASE SSI. ADD METFORMIN. PLAN FOR D/C HOME TOMORROW WITH CLOSE FOLLOW UP TO RAIL SPECIALIST FOR STRESS TEST.
[2018-07-06] MEDS: ATORVASTATIN CALCIUM 40 MG TABLET PO SCH (21:02)
[2018-07-07] MEDS: INSULIN LISPRO 100 UNIT/ML 3 ML VIAL SUBCUT PRN ×4 (03:47→16:52)
[2018-07-07 06:13] LABS: ALANINE AMINOTRANSFERASE 25 U/L (21-72); ALBUMIN 3.2 g/dL (3.5-5.0); ALKALINE PHOSPHATASE 82 U/L (38-126); ANION GAP 8 (5-19); ASPARTATE AMINO TRANSFERASE 23 U/L (17-59); BILIRUBIN,DIRECT 0.5 mg/dL (0.0-0.4); BILIRUBIN,TOTAL 0.9 mg/dL (0.2-1.3); BLOOD UREA NITROGEN 22 mg/dL (7-20); CALCIUM 8.9 mg/dL (8.4-10.2); CARBON DIOXIDE 30 mmol/L (22-30); CHLORIDE 100 mmol/L (98-107); GLUCOSE 273 mg/dL (75-110); POTASSIUM 3.6 mmol/L (3.6-5.0); SODIUM 137.7 mmol/L (137-145); TOTAL PROTEIN 6.5 g/dL (6.3-8.2)
[2018-07-07] MEDS: LISINOPRIL 10 MG TABLET PO SCH ×2 (08:22→17:36)
[2018-07-07] MEDS: METFORMIN HCL 500 MG TABLET PO SCH ×2 (08:22→16:52)
[2018-07-07] MEDS: CARVEDILOL 12.5 MG TABLET PO SCH (09:56)
[2018-07-07] MEDS: ASPIRIN 325 MG TABLET PO SCH (09:56)
[2018-07-07] MEDS: MULTIVITAMIN TABLET PO SCH (09:57)
[2018-07-07] MEDS: ENOXAPARIN SODIUM INJ 30 MG/0.3 ML DISP.SYRIN SUBCUT SCH (09:57)
[2018-07-07] MEDS: INSULIN GLARGINE,HUM.REC.ANLOG 300 UNIT/3 ML INSULN.PEN SUBCUT SCH (09:57)
[2018-07-07] MEDS: FUROSEMIDE 40 MG TABLET PO SCH ×2 (09:57→17:36)
--- NOTE | 2018-07-07 11:30 | PDOC PROGRESS REPORT ---
Subjective Progress Note for:: 07/07/18 Subjective:: Patient claims he has ambulated in the hallway and has done well. He is requesting discharge which I feel is reasonably safe to do. Patient can have stress test scheduled as an outpatient with his primary care traffic worker. He does want to follow with my office for sleep apnea management Patient seems to be doing better with gradual improvement. Pt is denying any chest arm or neck discomfort. Patient denying any PND, orthopnea. Patient denied any sustained palpitations, dizziness, syncope, near syncope. Patient denying any fever chills. Patient denying any other significant discomfort. Patient is maintaining sinus rhythm. Review of systems: Rest review of systems negative. Medications: Medications have been reviewed. Reason For Visit: HYPERGLYCEMIA,CHEST PAIN Physical Exam Vital Signs: Temp Pulse Resp BP Pulse Ox 97.6 F 74 12 177/97 H 99 07/07/18 07:14 07/07/18 07:14 07/07/18 07:14 07/07/18 07:14 07/07/18 07:14 Intake & Output 07/06/18 07/07/18 07/08/18 06:59 06:59 06:59 Intake Total 1515 Balance 1515 Weight 126.9 kg Exam: GENERAL: well-nourished and in no acute distress. Alert and oriented x3 HEAD: Atraumatic, normocephalic. EYES: Pupils equal round and reactive to light, extraocular movements intact, sclera anicteric, conjunctiva are normal. ENT: TMs normal, nares patent, oropharynx clear without exudates. Moist mucous membranes. No oral ulcerations or bleeding gums noted NECK: supple without lymphadenopathy. Trachea is central. No cervical or axillary lymphadenopathy noted. Carotids are 2+, JVD WNL LUNGS: Respiration seems nonlabored, no significant accessory muscle action noted. Breath sounds clear to auscultation bilaterally and equal noted. No wheezes rales or rhonchi noted. No significant dullness noted on percussion. CHEST: Palpation of the chest wall shows no significant chest wall tenderness. 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 ABDOMEN: Soft, no significant tenderness appreciated, normoactive bowel sounds. No guarding, no rebound. No rigidity noted . No masses appreciated. EXTREMITIES: Pedal pulses are 1-2+, no calf tenderness noted. No clubbing or cyanosis. negative pedal edema noted NEUROLOGICAL: Focused neurological exam showed no significant neurologic deficit. Normal speech, no focal weakness appreciated. PSYCH: Normal mood, normal affect. Judgment and insight within normal limits. SKIN: No significant ecchymosis, skin is noted to be warm. MUSCULOSKELETAL EXAM: No significant acute joint swelling noted. Results Laboratory Results: 07/07/18 04:25 07/07/18 04:25 Sodium 137.7 Potassium 3.6 Chloride 100 Carbon Dioxide 30 Anion Gap 8 BUN 22 H Creatinine 1.18 Est GFR ( Amer) > 60 Est GFR (Non-Af Amer) > 60 Glucose 273 H Calcium 8.9 Total Bilirubin 0.9 AST 23 ALT 25 Alkaline Phosphatase 82 Total Protein 6.5 Albumin 3.2 L EKG Comments: Shows sinus rhythm without any sustained tachycardia or bradycardia Impressions: Chest X-Ray 07/04/18 04:13 IMPRESSION: 1. No acute intrathoracic disease. 2. Remote postsurgical changes of the mediastinum. 3. New left subclavian single lead pacemaker. Assessment & Plan - Diagnosis (1) Chest pain Qualifiers: Chest pain type: unspecified Qualified Code(s): R07.9 - Chest pain, unspecified Is this a current diagnosis for this admission?: Yes (2) Coronary artery disease Qualifiers: Coronary Disease-Associated Artery/Lesion type: unspecified vessel or lesion type Associated angina: angina presence unspecified Is this a current diagnosis for this admission?: Yes (3) Diabetes mellitus type 2, uncontrolled Is this a current diagnosis for this admission?: Yes (4) Obesity (BMI 30-39.9) Is this a current diagnosis for this admission?: Yes (5) Sleep disorder Is this a current diagnosis for this admission?: Yes (6) Hypertension Qualifiers: Hypertension type: essential hypertension Qualified Code(s): I10 - Essential (primary) hypertension Is this a current diagnosis for this admission?: Yes - Notes Notes: 2D echo results reviewed with the patient. It does show depressed LVEF. Patient to have stress test hopefully tomorrow. Otherwise if he does well on ambulation can be discharged with home medication with instruction for CHF, better control of diabetes etc. Chest pain: Patient has some typical and atypical features of chest pain. Cardiac enzymes so far has been negative. Patient has known CAD and is status post CABG 6 years ago. Electrocardiogram nonspecific ST segment changes. Multiple differential diagnoses exist in this patient. In descending order of probability this includes underlying coronary artery disease, gastroesophageal reflux, musculoskeletal pain, referred pain from elsewhere, anxiety panic disorder etc.Patient has significant cardiac risk factors, which indicates that there is a intermediate probability of chest discomfort coming from underlying CAD. Chest discomfort however has resolved. He has ambulated without any difficulty. Feel that this now can be scheduled as an outpatient. CAD: Please see plans under chest pain. Medical regimen will be optimized. Diabetes: Currently stable. Recommend good control but avoid any hyper or hypoglycemia. Hypertension: Reasonably well controlled. Blood pressure goal in this patient is 135/85 or less. This was discussed with the patient. Currently blood pressure under reasonable control. Better medication for this patient are GERTRUDE inhibitor/ARB/beta krista etc. discussed side effects of uncontrolled hypertension and also severe hypotension. Obesity: Patient will benefit from weight loss. This was explained. Sleep disorder: Patient has high probability of having underlying sleep apnea syndrome given his physical exam, oropharyngeal exam and comorbid diagnosis. Patient has been recommended to undergo a sleep study. Patient is requesting sleep study to be scheduled. - Time Time with patient: Greater than 35 minutes - More than 50% of the time spent coordinating care, discussing management plans with involved caregivers. Management plans discussed with involved personnels. Medical decision making was of moderate to high complexity, patient's has multiple comorbidities. Medications reviewed and adjusted accordingly: Yes
[2018-07-07] MEDS ORDERED: INSULIN GLARGINE,HUM.REC.ANLOG 1,000 UNIT/10 ML UNIT SUBCUT ONE (11:53)
[2018-07-07] MEDS ORDERED: INSULIN GLARGINE,HUM.REC.ANLOG 300 UNIT/3 ML INSULN.PEN SUBCUT ONE (12:15)
[2018-07-07] MEDS ORDERED: HYDRALAZINE HCL 25 MG TABLET PO SCH (14:00)
--- NOTE | 2018-07-07 15:34 | DRAGON STRESS TEST REPORT ---
INTRAVENOUS LEXISCAN CARDIOLITE STRESS TEST USING SINGLE PHOTON EMMISION COMPUTERIZED TOMOGRAPHIC. DATE OF PROCEDURE: July 06, 2018, INDICATION : CAD, chest pain CARDIAC RISK FACTORS: Diabetes, hypertension, hyperlipidemia, history of CABG RESTING EKG: Sinus rhythm, minor nonspecific IVCD, probable LVH STRESS EKG: No significant ST segment changes noted with LexiScan bolus REASON FOR TERMINATION: Protocol. PROCEDURE REPORT: Baseline heart rate 67 beats per minute with blood pressure of 158/77. Patient had no significant complaints. Patient was bolused with Lexiscan 0.4 mg intravenously followed by saline bolus. Heart rate at 2 minutes post bolus 89 with a blood pressure of 186/110. 3 minutes post bolus heart rate 85 with blood pressure of 202/99. No significant EKG changes were noted. Patient had no significant complaints during the procedure or postprocedure. CONCLUSIONS: Normal EKG and hemodynamic response to IV LexiScan. NUCLEAR DATA: At rest the patient was given 15.28 millicuries of technetium 99 sestamibi injected intravenously. As per protocol rest gated SPECT images were obtained. On day of stress test, the patient was given intravenous LexiScan at a dose of 0.4 mg in 5 mL intravenously, followed by flush with normal saline. Subsequently the stress dose of 42.4 millicuries of technetium 99 sestamibi was injected intravenously. NUCLEAR DATA: At rest the patient was given 14.0 millicuries of technetium 99 sestamibi injected intravenously. As per protocol rest gated SPECT images were obtained. On day of stress test, the patient was given intravenous LexiScan at a dose of 0.4 mg in 5 mL intravenously, followed by flush with normal saline. Subsequently the stress dose of 42.6 millicuries of technetium 99 sestamibi was injected intravenously. NUCLEAR INTERPRETATION: Due to camera/equipment failure/technical errors, nuclear images were nondiagnostic and no interpretation can be given. RECOMMENDATIONS: May consider repeating the stress test if clinically indicated. May also consider alternative testing based on clinical judgment. Dr. Ayo Montoya. MRCP Board certified in cardiology and sleep medicine. Board certified in nuclear cardiology, adult echocardiography. [facility]
[2018-07-07 15:49] VITALS: BP 134/92
[2018-07-07] MEDS ORDERED: INSULIN GLARGINE,HUM.REC.ANLOG 300 UNIT/3 ML INSULN.PEN SUBCUT SCH ×2 (18:00)
[2018-07-08] MEDS ORDERED: ISOSORBIDE MONONITRATE 30 MG TAB.ER.24H PO SCH (10:00)
--- NOTE | 2018-07-22 15:06 | PDOC DISCHARGE SUMMARY ---
General - Admit/Disc Date/PCP Admission Date/Primary Care Provider: 07/06/18 16:58 GIANLUCA JULIO MD Discharge Date: 07/07/18 - Discharge Diagnosis (1) Chest pain Is this a current diagnosis for this admission?: Yes (2) Coronary artery disease Is this a current diagnosis for this admission?: Yes (3) Diabetes mellitus type 2, uncontrolled Is this a current diagnosis for this admission?: Yes (4) Hyperlipidemia Is this a current diagnosis for this admission?: Yes (5) ARF (acute renal failure) Is this a current diagnosis for this admission?: Yes - Additional Information Resuscitation Status: Full Code Discharge Diet: Cardiac, Diabetic Discharge Activity: Activity As Tolerated Prescriptions: Insulin Glargine,Hum.rec.anlog [Lantus Insulin 100 Unit/mL] 40 unit SUBCUT BID # 5 insuln.pen Insulin Admin. Supplies [Inpen (For Humalog)] 1 each SQ ACHS #5 insuln.pen Metformin HCl [Glucophage 500 mg Tablet] 1,000 mg PO BID #60 tablet Home Medications: Acetaminophen [Tylenol Extra Strength 500 mg Tablet] 1,000 mg PO Q6HP PRN Aspirin [Aspirin 325 mg Tablet] 325 mg PO DAILY 07/04/18 Atorvastatin Calcium [Lipitor 40 mg Tablet] 40 mg PO QHS 07/04/18 Carvedilol [Coreg 25 mg Tablet] 37.5 mg PO Q12 07/04/18 Diphenhydramine HCl [Benadryl] 50 mg PO QAM 07/04/18 Diphenhydramine HCl [Benadryl] 50 mg PO QPM 07/04/18 Docusate Sodium [Stool Softener] 200 mg PO BIDP PRN 07/04/18 Lisinopril [Prinivil 40 mg Tablet] 40 mg PO QAM 07/04/18 Lisinopril [Prinivil] 20 mg PO QPM 07/04/18 Multivitamin [Multivitamins] 1 each PO DAILY 07/04/18 Nitroglycerin [Nitrostat 0.4 mg (1/150 Gr) Tabs 25/Bottle] 1 tab SL Q5MP PRN Hydralazine HCl [Apresoline 25 mg Tablet] 25 mg PO Q8 tablet 07/07/18 Insulin Admin. Supplies [Inpen (For Humalog)] 1 each SQ ACHS #5 insuln.pen 07/07 Insulin Glargine,Hum.rec.anlog [Lantus Insulin 100 Unit/mL] 40 unit SUBCUT BID # 5 insuln.pen 07/07/18 Isosorbide Mononitrate [Imdur 30 mg Tablet.er] 30 mg PO DAILY tab.er.24h Metformin HCl [Glucophage 500 mg Tablet] 1,000 mg PO BID #60 tablet 07/07/18 History of Present Illness History of Present Illness: JAMES FLORIAN is a 57 year old male with a PMH of CABG, insulin-dependent diabetes, hypertension, hyperlipidemia, CHF, AICD. He presented to the ED with complaints of leg cramps and chest pain. The patient states he was sitting on his couch when he developed leg cramps and subsequently developed chest pain, SOB, and diaphoresis. This prompted the patient to call EMS. Of note, the patient states he has been out of his Metformin for "a few months now." Denies any other changes to his medications. The patient is currently displaced due to the recent hurricaine and lost his glucometer. As a result he has not been checking his blood glucose, he simply gives himself "my normal insulin." Upon arrival to the ED, the patient stated he was still experiencing intermittent non -radiating chest pain. He denies fever, nausea or vomiting. Blood glucose on arrival to [facility] was 381 mg/dl. Other significant lab work includes Hgb A1cC > 14. Creatinine 1.62 and a slightly elevated troponin 0.026. All other lab work, including CBC, completely benign. EKG demonstrates NSR, evidence of LVH but no infarction or ischemia. CXR benign. Plan to admit patient to hospitalist service for chest pain workup and treatment of uncontrolled diabetes. Hospital Course Hospital Course: JAMES FLORIAN is a 57 year old male with a PMH of CABG, insulin-dependent diabetes, hypertension, hyperlipidemia, CHF, AICD. He presented to the ED with complaints of leg cramps and chest pain. The patient states he was sitting on his couch when he developed leg cramps and subsequently developed chest pain, SOB, and diaphoresis. The patient was admitted with a slightly elevated troponin , which trended down 0.026-->0.023-->0.019. EKG demonstrates NSR, (+) LVH, no infarction or ischemia. ECHOcardiogram complete: LVEF 40%, grade II diastolic dysfunction. Unfortunately, a nuclear stress test was unable to be performed due to faulty equipment. The patient was started on Imdur for his chest pain. An incidental finding during the patient's hospitalization was that his diabetes was very poorly controlled. The patient stated he has not had his metformin in 'months.' HGB A1C > 14. The patient met with the coding educator and cd manufacturing supervisor while at [facility]. He told staff that his doctor instructed him to take Humalog "1 hour after every meal." A great deal of time was spent counseling the patient regarding proper administration of sliding scale Humalog. The patient's home dose of Lantus was increased. Following 3 days in the hospital, the patient was deemed safe for discharge. He was instructed to follow-up with his power builder developer for an outpatient stress test. Additionally the patient was provided prescriptions for his new dose of Lantus and a new Humalog pen. He was sent home with a great deal of information regarding proper insulin administration and the use of mealtime sliding scale. The patient's home dose of metformin was not changed. For further information regarding this patient's hospitalization, please refer to the EMR. Physical Exam Vital Signs: Temp Pulse Resp BP Pulse Ox 97.6 F 72 16 134/92 H 100 07/07/18 18:26 07/07/18 18:26 07/07/18 18:26 07/07/18 18:26 07/07/18 18:26 Results Laboratory Results: 07/07/18 04:25 Impressions: Chest X-Ray 07/04/18 04:13 IMPRESSION: 1. No acute intrathoracic disease. 2. Remote postsurgical changes of the mediastinum. 3. New left subclavian single lead pacemaker. Status: Imported from PACS Qualifiers - * PATIENT BEING DISCHARGED WITH ANY OF THE FOLLOWING DIAGNOSIS: No Plan Discharge Plan: Discharge home with new prescriptions for Lantus and Humalog. Follow-up with power builder developer for outpatient stress test. Time Spent: Greater than 30 Minutes
== END 2018-07-07 19:03 | disposition home or self-care (01) | DRG 637 ==
LOC: ER 01:33 → INTOOBSV 08:17 → EH 08:17 → 3N 20:37 → OBSVTOIN 07-06 16:58
PROVIDERS: ADMIT Emergency Medicine; ATTEND Emergency Medicine
DX: E11.65 Type 2 diabetes mellitus with hyperglycemia (principal); J18.9 Pneumonia, unspecified organism; N17.9 Acute kidney failure, unspecified; E78.00 Pure hypercholesterolemia, unspecified; I11.0 Hypertensive heart disease with heart failure; I50.9 Heart failure, unspecified; I25.10 Atherosclerotic heart disease of native coronary artery without angina pectoris; K21.9 Gastro-esophageal reflux disease without esophagitis; F41.0 Panic disorder [episodic paroxysmal anxiety]; Z60.2 Problems related to living alone; E66.9 Obesity, unspecified; Z68.30 Body mass index [BMI] 30.0-30.9, adult; I25.2 Old myocardial infarction; Z95.810 Presence of automatic (implantable) cardiac defibrillator; Z95.1 Presence of aortocoronary bypass graft; Z87.891 Personal history of nicotine dependence; Z79.899 Other long term (current) drug therapy; Z79.4 Long term (current) use of insulin; Z79.82 Long term (current) use of aspirin; Z91.14 Patient's other noncompliance with medication regimen; Z82.49 Family history of ischemic heart disease and other diseases of the circulatory system
CPT/HCPCS: 36415; 71045; 80053; 81001; 82550; 82553; 82570; 82803; 82962; 83036; 83735; 83880; 84300; 84484; 85025; 87086; 87088; 93005; 93010; 93017; 93306; 96360; 99285; A9500; G0378; J1650; J1815; J2785; Q9969

== ENCOUNTER 2019-01-13 08:47 | Inpatient (IN) | payer MEDICAID, MEDICARE ==
[2019-01-13 09:27] LABS: ABSOLUTE BASOPHILS # (AUTO) 0.1 10^3/uL (0.0-0.2); ABSOLUTE EOSINOPHILS # (AUTO) 0.1 10^3/uL (0.0-0.6); ABSOLUTE LYMPHOCYTES (AUTO) 1.2 10^3/uL (0.5-4.7); ABSOLUTE MONOCYTES (AUTO) 0.6 10^3/uL (0.1-1.4); ABSOLUTE NEUT (AUTO) 5.9 10^3/uL (1.7-8.2); BASOPHILS % (AUTO) 0.6 % (0-2); EOSINOPHILS % (AUTO) 0.9 % (0-6); HEMATOCRIT 39.5 % (37.9-51.0); HEMOGLOBIN 13.6 g/dL (13.5-17.0); LYMPHOCYTES % (AUTO) 15.6 % (13-45); MEAN CORPUSCULAR HEMOGLOBIN 31.5 pg (27.0-33.4); MEAN CORPUSCULAR HGB CONC 34.5 g/dL (32.0-36.0); MEAN CORPUSCULAR VOLUME 91 fl (80-97); MONOCYTES % (AUTO) 7.3 % (3-13); PLATELET COUNT 249 10^3/uL (150-450); RED BLOOD COUNT 4.33 10^6/uL (4.35-5.55); RED CELL DISTRIBUTION WIDTH 14.2 % (11.5-14.0); SEGMENTED NEUTROPHILS % (AUTO) 75.6 % (42-78); TOTAL CELLS COUNTED % (AUTO) 100 %; WHITE BLOOD COUNT 7.9 10^3/uL (4.0-10.5)
[2019-01-13 09:35] LABS: ALANINE AMINOTRANSFERASE 33 U/L (21-72); ALBUMIN 3.7 g/dL (3.5-5.0); ALKALINE PHOSPHATASE 94 U/L (38-126); ANION GAP 10 (5-19); ASPARTATE AMINO TRANSFERASE 26 U/L (17-59); BILIRUBIN,DIRECT 0.3 mg/dL (0.0-0.4); BILIRUBIN,TOTAL 1.6 mg/dL (0.2-1.3); BLOOD UREA NITROGEN 16 mg/dL (7-20); CALCIUM 9.5 mg/dL (8.4-10.2); CARBON DIOXIDE 27 mmol/L (22-30); CHLORIDE 101 mmol/L (98-107); GLUCOSE 308 mg/dL (75-110); POTASSIUM 3.4 mmol/L (3.6-5.0); SODIUM 137.8 mmol/L (137-145); TOTAL PROTEIN 7.4 g/dL (6.3-8.2)
[2019-01-13 09:49] LABS: TROPONIN I 0.059 ng/mL
--- NOTE | 2019-01-13 09:58 | RADIOLOGY REPORT (SQ) ---
EXAM DESCRIPTION: CHEST SINGLE VIEW COMPLETED DATE/TIME: 01/13/2019 9:49 am REASON FOR STUDY: shortness of breath COMPARISON: Two-view chest 12/29/2016 AP chest 07/04/2018 EXAM PARAMETERS: NUMBER OF VIEWS: One view. TECHNIQUE: Single frontal radiographic view of the chest acquired. RADIATION DOSE: NA LIMITATIONS: None. FINDINGS: LUNGS AND PLEURA: Fluid overload or congestive failure with interstitial pulmonary edema a t both lung bases. No dense consolidation worrisome for pneumonia. No perihilar alveolar edema or p leural effusion. No pneumothorax. MEDIASTINUM AND HILAR STRUCTURES: No masses. Contour normal. HEART AND VASCULAR STRUCTURES: Mild cardiomegaly. Post CABG BONES: No acute findings. HARDWARE: Left-sided pacemaker OTHER: No other significant finding. IMPRESSION: Fluid overload or congestive failure with interstitial pulmonary edema TECHNICAL DOCUMENTATION: JOB ID: [id number] [employer]- All Rights Reserved Reading location - IP/workstation name: [email or web address]
[2019-01-13] MEDS ORDERED: FUROSEMIDE INJ/PF 40 MG/4 ML SDV IV ONE (10:09)
[2019-01-13] MEDS ORDERED: ASPIRIN 325 MG TABLET PO ONE (10:10)
[2019-01-13] MEDS ORDERED: HYDRALAZINE HCL INJ/PF 20 MG/1 ML SDV IV ONE (10:48)
[2019-01-13] MEDS ORDERED: CARVEDILOL 12.5 MG TABLET PO ONE (10:48)
--- NOTE | 2019-01-13 11:10 | EKG REPORT ---
SEVERITY:- ABNORMAL ECG - SINUS RHYTHM PROBABLE LEFT ATRIAL ABNORMALITY NONSPECIFIC INTRAVENTRICULAR CONDUCTION DELAY MINIMAL ST DEPRESSION, DIFFUSE LEADS : Confirmed by: Nancy Petty MD 13-Jan-2019 11:09:03
--- NOTE | 2019-01-13 11:24 | ER Document Report ---
ED General - General Chief Complaint: Shortness Of Breath Stated Complaint: ABDOMINAL PAIN Time Seen by Provider: 01/13/19 09:55 Primary Care Provider: JEANNE ROBERTS MD [Primary Care Provider] - Follow up as needed TRAVEL OUTSIDE OF THE [place] IN LAST 30 DAYS: No - HPI Notes: Patient is a 58-year-old gentleman comes into the emergency department for evaluation of shortness of breath. Is been present for the last 3 days. He has an extensive medical history. He lost his Medicaid. He has not had any of his medications over the last week. He is eligible for Medicare the beginning of February. He is try to stretch his medications as much as he can. Over the last 3 days he complains of shortness of breath, upper abdominal pain, paroxysmal nocturnal dyspnea. He has a dry cough this been present as well. He states the edema in his legs might be worse. He has no upper abdominal pain at this time. - Related Data Allergies/Adverse Reactions: No Known Allergies Allergy (Verified 12/29/16 11:46) Past Medical History - General Information source: Patient - Social History Smoking Status: Former Smoker Frequency of alcohol use: Rare Drug Abuse: None Family History: CAD, Hypertension Patient has suicidal ideation: No Patient has homicidal ideation: No - Past Medical History Cardiac Medical History: Reports: Hx Congestive Heart Failure - Ejection fr action of 20%, Hx Coronary Artery Disease, Hx Heart Attack, Hx Hypercholesterolemia, Hx Hypertension Denies: Hx DVT, Hx Pulmonary Embolism Pulmonary Medical History: Reports: Hx Pneumonia Denies: Hx Asthma, Hx Bronchitis, Hx COPD Neurological Medical History: Denies: Hx Cerebrovascular Accident, Hx Seizures Endocrine Medical History: Reports: Hx Diabetes Mellitus Type 2. Denies: Hx Hyperthyroidism, Hx Hypothyroidism Renal/ Medical History: Denies: Hx Peritoneal Dialysis GI Medical History: Denies: Hx Cirrhosis, Hx Gastroesophageal Reflux Disease, Hx Hepatitis Musculoskeletal Medical History: Denies Hx Arthritis Psychiatric Medical History: Denies: Hx Depression Infectious Medical History: Denies: Hx Hepatitis Past Surgical History: Reports: Hx Cardiac Catheterization, Hx Cardiac Surgery - triple bypass, ICD/pacemaker, Hx Coronary Artery Bypass Graft - CABGx3 in 2011, Hx Internal Defibrillator, Hx Tonsillectomy - Immunizations Hx Diphtheria, Pertussis, Tetanus Vaccination: Yes Review of Systems - Review of Systems Constitutional: Weakness EENT: No symptoms reported Cardiovascular: See HPI Respiratory: See HPI Gastrointestinal: See HPI Physical Exam - Vital signs Vitals: Pulse Ox 97 01/13/19 08:58 - Notes Notes: Vital signs reviewed, please refer to chart. Patient is normocephalic, atraumatic. Pupils equal round, reactive to light. Neck is supple without meningismus. Heart is regular rate and rhythm. Lungs reveal bibasilar rales. Abdomen is soft, nontender, normoactive bowel sounds throughout. Extremities without cyanosis, clubbing. 1+ pitting edema bilaterally, no posterior calf tenderness. Peripheral pulses are equal. Skin is warm and dry. Patient is awake, alert, neurological exam is nonfocal. Course - Vital Signs Vital signs: Temp Pulse Resp BP Pulse Ox 98.3 F 14 133/96 H 96 01/13/19 09:14 01/13/19 13:31 01/13/19 13:31 01/13/19 13:31 01/13/19 14:35 She presents to the emergency department for evaluation. He is placed on a formation testing operator, oxygen per nasal cannula. Laboratory investigations were obtained, chest x-ray was ordered. Chest x-ray revealed interstitial edema. ProBNP is moderately elevated. He was administered IV Lasix. He was also given his oral Coreg. He is supposed to be on oral hydralazine as well, he was given IV hydralazine. His blood pressure improved dramatically. Because of the large dose of IV Lasix that was given, his borderline potassium was replaced orally. With minimal exertion, the patient became more short of breath, his oxygen saturation dropped to 90%. Given this information I spoke with Dr. Frazier. He accepted the patient, asked that the admission be given to Eva Manning. She will come to the ED to evaluate the patient and admit him for further care. - Laboratory Result Diagrams: 01/13/19 08:58 01/13/19 08:58 Laboratory results interpreted by me: 01/13/19 01/13/19 01/13/19 08:58 08:58 08:58 RBC 4.33 L RDW 14.2 H Potassium 3.4 L Glucose 308 H Total Bilirubin 1.6 H NT-Pro-B Natriuret Pep 3110 H Urine Protein Urine Glucose (UA) Urine Blood 01/13/19 11:10 RBC RDW Potassium Glucose Total Bilirubin NT-Pro-B Natriuret Pep Urine Protein 100 H Urine Glucose (UA) >=500 H Urine Blood SMALL H - Diagnostic Test Radiology reviewed: Reports reviewed Radiology results interpreted by me: 01/13/19 14:36 Interstitial edema - EKG Interpretation by Me Additional EKG results interpreted by me: 01/13/19 14:37 Sinus mechanism with a rate of 98 bpm. Right bundle branch block. Nonspecific ST changes, no changes concerning for acute infarction. Discharge - Discharge Clinical Impression: Acute exacerbation of congestive heart failure Condition: Stable Disposition: ADMITTED OBSERVATION Admitting Provider: Hospitalist - Eva Manning NP Unit Admitted: Telemetry Referrals: JEANNE ROBERTS MD [Primary Care Provider] - Follow up as needed
[2019-01-13 11:35] LABS: APPEARANCE,URINE CLEAR; BILIRUBIN,URINE NEGATIVE (NEGATIVE); COLOR,URINE STRAW; GLUCOSE, URINE >=500 mg/dL (NEGATIVE); KETONES,URINE NEGATIVE (NEGATIVE); LEUKOCYTE ESTERASE,URINE NEGATIVE (NEGATIVE); NITRITE,URINE NEGATIVE (NEGATIVE); PROTEIN,URINE 100 mg/dL (NEGATIVE); URINE SPECIFIC GRAVITY 1.007; UROBILINOGEN,URINE NEGATIVE mg/dL (<2.0)
[2019-01-13] MEDS ORDERED: POTASSIUM CHLORIDE 20 MEQ/15 ML UDCUP PO ONE (14:26)
[2019-01-13] MEDS ORDERED: NITROGLYCERIN 0.4 MG/TAB 25 TAB/BOTTLE SL PRN (14:58)
[2019-01-13] MEDS ORDERED: DOCUSATE SODIUM 100 MG CAPSULE PO PRN (14:58)
[2019-01-13] MEDS ORDERED: ONDANSETRON HCL INJ/PF 4 MG/2 ML SDV IV PRN (15:51)
[2019-01-13] MEDS ORDERED: ACETAMINOPHEN 325 MG TABLET PO PRN (15:51)
[2019-01-13] MEDS ORDERED: MAG HYDROX/AL HYDROX/SIMETH SUSP 30 ML UDCUP PO PRN (15:51)
[2019-01-13] MEDS ORDERED: MAGNESIUM HYDROXIDE SUSP 30 ML UDCUP PO PRN (15:51)
[2019-01-13] MEDS ORDERED: GLUCAGON,HUMAN RECOMB 1 MG INJ IM PRN (15:54)
[2019-01-13] MEDS ORDERED: DEXTROSE 40% GEL 15 GM TUBE PO PRN ×2 (15:54)
[2019-01-13] MEDS ORDERED: DEXTROSE 50%-WATER 25 GM/50 ML DISP.SYRIN IV PRN ×2 (15:54)
[2019-01-13] MEDS: METFORMIN HCL 500 MG TABLET PO SCH (17:11)
[2019-01-13] MEDS: INSULIN LISPRO 100 UNIT/ML 3 ML VIAL SUBCUT SCH ×2 (17:11→23:08)
[2019-01-13] MEDS: LISINOPRIL 10 MG TABLET PO SCH (17:11)
[2019-01-13] MEDS: INSULIN GLARGINE,HUM.REC.ANLOG 1,000 UNIT/10 ML VIAL SUBCUT SCH (17:13)
--- NOTE | 2019-01-13 17:41 | PDOC H&P ---
History of Present Illness Admission Date/PCP: 01/13/19 15:09 JEANNE ROBERTS MD Patient complains of: Dyspnea on exertion History of Present Illness: JAMES FLORIAN is a 58 year old male with a past medical history of chronic systolic and diastolic CHF, hypertension, AICD, CABG x3, DM 2, and morbid obesity who presents to the emergency department proximally 1 week after running out of his medications due to insurance/financial restraints with complaint of progressively worsening dyspnea on exertion and generalized edema. He denies chest pain. He is followed by Dr. Petty; reports that his last echocardiogram in September 2018 showed LVEF of 35%. Evaluation in the emergency department revealed hypertensive emergencies with blood pressures 195/129 that responded adequately to resumption of his home dose medications, tachycardia (HR 102), tachypnea (RR 28) mild hypoxia (SPO2 90% while ambulatory on room air), chest x-ray revealing profound vascular congestion/pulmonary edema, unremarkable CBC, and chemistry revealing a proBNP of 3100 and indeterminately elevated troponins. Past Medical History Cardiac Medical History: Reports: Congestive Heart Failure - Ejection fraction of 35%, Coronary Artery Disease, Myocardial Infarction, Hyperlipidema, Hypertension Denies: DVT, Pulmonary Embolism Pulmonary Medical History: Reports: Pneumonia Denies: Asthma, Bronchitis, Chronic Obstructive Pulmonary Disease (COPD) Neurological Medical History: Denies: Ischemic CVA, Seizures Endocrine Medical History: Reports: Diabetes Mellitus Type 2, Obesity Denies: Hyperthyroidism, Hypothyroidism Renal/ Medical History: Reports: None Malignancy Medical History: Reports: None GI Medical History: Denies: Cirrhosis, Gastroesophageal Reflux Disease, Hepatitis Musculoskeltal Medical History: Denies: Arthritis Skin Medical History: Reports: None Psychiatric Medical History: Reports: None Denies: Depression Traumatic Medical History: Reports: None Hematology: Reports: None Denies: Anemia Infectious Medical History: Reports: None Past Surgical History Past Surgical History: Reports: Cardiac Catheterization, Coronary Artery Bypass Graft - CABGx3 in 2011, Internal Defibrillator, Tonsillectomy Social History Information Source: Patient Lives with: Alone Smoking Status: Former Smoker Frequency of Alcohol Use: None Hx Recreational Drug Use: No Drugs: None Hx Prescription Drug Abuse: No - Advance Directive Resuscitation Status: Full Code Surrogate healthcare decision maker:: The patient's daughter, Liss Florian, Family History Family History: CAD, Hypertension Parental Family History Reviewed: Yes Children Family History Reviewed: Yes Sibling(s) Family History Reviewed.: Yes Medication/Allergy Home Medications: Aspirin [Aspirin 325 mg Tablet] 325 mg PO DAILY 07/04/18 Atorvastatin Calcium [Lipitor 40 mg Tablet] 40 mg PO QHS 07/04/18 Carvedilol [Coreg 25 mg Tablet] 37.5 mg PO Q12 07/04/18 Diphenhydramine HCl [Benadryl] 50 mg PO BID 07/04/18 Docusate Sodium [Stool Softener] 200 mg PO BIDP PRN 07/04/18 Lisinopril [Prinivil 40 mg Tablet] 40 mg PO QAM 07/04/18 Lisinopril [Prinivil] 20 mg PO QPM 07/04/18 Multivitamin [Multivitamins] 1 each PO DAILY 07/04/18 Nitroglycerin [Nitrostat 0.4 mg (1/150 Gr) Tabs 25/Bottle] 1 tab SL Q5MP PRN 07/04/18 Hydralazine HCl [Apresoline 25 mg Tablet] 25 mg PO Q8 tablet 07/07/18 Insulin Admin. Supplies [Inpen (For Humalog)] 1 each SQ ACHS #5 insuln.pen 07/07/18 Insulin Glargine,Hum.rec.anlog [Lantus Insulin 100 Unit/mL] 40 unit SUBCUT BID #5 insuln.pen 07/07/18 Isosorbide Mononitrate [Imdur 30 mg Tablet.er] 30 mg PO DAILY tab.er.24h 07/07/18 Metformin HCl [Glucophage 500 mg Tablet] 1,000 mg PO BID #60 tablet 07/07/18 Amlodipine Besylate [Norvasc 5 mg Tablet] 5 mg PO DAILY 01/13/19 Furosemide [Lasix] 40 mg PO BID 01/13/19 Insulin Lispro [Humalog] 8 unit SQ BID 01/13/19 Allergies/Adverse Reactions: No Known Allergies Allergy (Verified 12/29/16 11:46) Review of Systems Constitutional: PRESENT: fatigue, weight gain. ABSENT: chills, fever(s), headache(s), weight loss Eyes: ABSENT: visual disturbances Ears: ABSENT: hearing changes Cardiovascular: PRESENT: dyspnea on exertion, edema, orthropnea. ABSENT: chest pain, palpitations Respiratory: PRESENT: cough. ABSENT: hemoptysis Gastrointestinal: ABSENT: abdominal pain, constipation, diarrhea, hematemesis, h ematochezia, nausea, vomiting Genitourinary: ABSENT: dysuria, hematuria Musculoskeletal: ABSENT: joint swelling Integumentary: ABSENT: rash, wounds Neurological: ABSENT: abnormal gait, abnormal speech, confusion, dizziness, focal weakness, syncope Psychiatric: ABSENT: anxiety, depression, homidical ideation, suicidal ideation Endocrine: ABSENT: cold intolerance, heat intolerance, polydipsia, polyuria Hematologic/Lymphatic: ABSENT: easy bleeding, easy bruising Physical Exam Vital Signs: Temp Pulse Resp BP Pulse Ox 98.3 F 20 140/100 H 96 01/13/19 09:14 01/13/19 16:31 01/13/19 16:31 01/13/19 16:31 Intake & Output 01/12/19 01/13/19 01/14/19 06:59 06:59 06:59 Weight 140.3 kg General appearance: PRESENT: no acute distress, cooperative - Very pleasant, obese, well-developed, well-nourished Head exam: PRESENT: atraumatic, normocephalic Eye exam: PRESENT: conjunctiva pink, EOMI, PERRLA. ABSENT: scleral icterus Ear exam: PRESENT: normal external ear exam Mouth exam: PRESENT: moist, tongue midline Neck exam: ABSENT: carotid bruit, JVD, lymphadenopathy, thyromegaly Respiratory exam: PRESENT: crackles - Throughout, symmetrical, unlabored. ABSENT: rales, rhonchi, wheezes Cardiovascular exam: PRESENT: RRR, +S1, +S2. ABSENT: diastolic murmur, rubs, systolic murmur Pulses: PRESENT: normal dorsalis pedis pul Vascular exam: PRESENT: normal capillary refill GI/Abdominal exam: PRESENT: distended, normal bowel sounds, soft. ABSENT: guar ding, mass, organolmegaly, rebound, tenderness Rectal exam: PRESENT: deferred Extremities exam: PRESENT: full ROM, +2 edema - BLE. ABSENT: calf tenderness, clubbing, pedal edema Neurological exam: PRESENT: alert, awake, oriented to person, oriented to place, oriented to time, oriented to situation, CN II-XII grossly intact. ABSENT: motor sensory deficit Psychiatric exam: PRESENT: appropriate affect, normal mood. ABSENT: homicidal ideation, suicidal ideation Skin exam: PRESENT: dry, intact, warm. ABSENT: cyanosis, rash Results Laboratory Results: 01/13/19 08:58 01/13/19 08:58 01/13/19 01/13/19 01/13/19 08:58 08:58 11:10 WBC 7.9 RBC 4.33 L Hgb 13.6 Hct 39.5 MCV 91 MCH 31.5 MCHC 34.5 RDW 14.2 H Plt Count 249 Seg Neutrophils % 75.6 Lymphocytes % 15.6 Monocytes % 7.3 Eosinophils % 0.9 Basophils % 0.6 Absolute Neutrophils 5.9 Absolute Lymphocytes 1.2 Absolute Monocytes 0.6 Absolute Eosinophils 0.1 Absolute Basophils 0.1 Sodium 137.8 Potassium 3.4 L Chloride 101 Carbon Dioxide 27 Anion Gap 10 BUN 16 Creatinine 1.12 Est GFR ( Amer) > 60 Est GFR (Non-Af Amer) > 60 Glucose 308 H Calcium 9.5 Total Bilirubin 1.6 H AST 26 ALT 33 Alkaline Phosphatase 94 Total Protein 7.4 Albumin 3.7 Urine Color STRAW Urine Appearance CLEAR Urine pH 6.0 Ur Specific [place]berg 1.007 Urine Protein 100 H Urine Glucose (UA) >=500 H Urine Ketones NEGATIVE Urine Blood SMALL H Urine Nitrite NEGATIVE Ur Leukocyte Esterase NEGATIVE Urine WBC (Auto) 0 Urine RBC (Auto) 0 01/13/19 01/13/19 08:58 12:35 Troponin I 0.059 0.074 NT-Pro-B Natriuret Pep 3110 H Impressions: Chest X-Ray 01/13/19 09:14 IMPRESSION: Fluid overload or congestive failure with interstitial pulmonary edema Assessment and Plan - Diagnosis (1) Acute exacerbation of congestive heart failure Qualifiers: Heart failure type: combined systolic and diastolic Qualified Code(s): I50.43 - Acute on chronic combined systolic (congestive) and diastolic (congestive) heart failure Is this a current diagnosis for this admission?: Yes Plan: The patient reports a history of chronic systolic/diastolic CHF with LVEF of 35% in September 2018 status post pacemaker/AICD placement who is followed by Dr. Petty. He reports that his Medicaid has run out and we will not renew until February of this year. He states that this caused him to run out of his medications proximally 1 week ago. Since that time he has noticed progressively worsening generalized edema and dyspnea on exertion. Patient reports that he is now only able to walk 30-40 feet prior to having to stop to rest which is prompted him to seek assistance in the emergency department. Emergency department provider resumed his home medication regiment and provided IV furosemide which is already improved his symptoms. He is admitted to the telemetry floor. He is placed on a cardiac diet; fluid restricted. We will continue to diurese with IV furosemide. We will continue his home regiment of carvedilol, lisinopril, Isosorbide, hydr alazine, Norvasc, with daily aspirin and statin therapy. Troponins are indeterminately elevated; likely demand ischemia in setting of acute CHF exacerbation. Continue to trend. Daily weights. Registered dietitian and patient educator consulted. Discharge planning is consulted. (2) Coronary artery disease Qualifiers: Coronary Disease-Associated Artery/Lesion type: bypass graft Associated angina: without angina Is this a current diagnosis for this admission?: Yes Plan: Stable and without chest pain at this time. EKG demonstrates RBBB w/o concerning findings. Management as above. (3) Hypertensive urgency Is this a current diagnosis for this admission?: Yes Plan: Improved; secondary to lack of access to antihypertensives. Patient presented with blood pressures of 190/120. Have trended down to 140/90 with resumption of his home medication regiment. Cardiac diet, fluid restriction. Continue IV furosemide as above. (4) Obesity (BMI 30-39.9) Is this a current diagnosis for this admission?: Yes Plan: Dietary discretion is advised. Lifestyle modifications are advised. Patient will meet with the registered dietitian and ict educator. (5) Diabetes mellitus type 2 in obese Is this a current diagnosis for this admission?: Yes Plan: Patient is placed on a consistent carb/cardiac diet. Accu-Cheks before meals and at bedtime with Humalog for sliding scale coverage. We will continue the patient's home regiment of metformin 1000 mg twice daily and Lantus 30 units twice daily with Humalog for sliding scale coverage. Hypoglycemia protocol in place. - Time Time Spent with patient: 35 or more minutes Medications reviewed and adjusted accordingly: Yes Anticipated discharge: Home Within: within 24 hours
[2019-01-13] MEDS ORDERED: INSULIN GLARGINE HUM REC ANLOG 30 UNIT SUBCUT SCH (18:00)
[2019-01-13] MEDS ORDERED: (PENDING PHARMACY ID) (Lisinopril [Prinivil] 20 MG) PO SCH (18:00)
[2019-01-13] MEDS ORDERED: [UNRECOGNIZED DRUG - OTHER] SUBCUT SCH (18:00)
[2019-01-13] MEDS ORDERED: CARVEDILOL 37.5 MG PO SCH (22:00)
[2019-01-13] MEDS: FUROSEMIDE INJ/PF 40 MG/4 ML SDV IV SCH (23:09)
[2019-01-13] MEDS: FAMOTIDINE 20 MG TABLET PO SCH (23:10)
[2019-01-13] MEDS: HYDRALAZINE HCL 25 MG TABLET PO SCH (23:10)
[2019-01-13] MEDS: ATORVASTATIN CALCIUM 40 MG TABLET PO SCH (23:10)
[2019-01-13] MEDS: CARVEDILOL 12.5 MG TABLET PO SCH (23:10)
[2019-01-13] MEDS: HEPARIN SOD (PORCINE) 5,000 UNIT/ML 1 ML SYRINGE SUBCUT SCH (23:11)
[2019-01-14] MEDS: HEPARIN SOD (PORCINE) 5,000 UNIT/ML 1 ML SYRINGE SUBCUT SCH ×3 (05:54→22:28)
[2019-01-14] MEDS: HYDRALAZINE HCL 25 MG TABLET PO SCH ×3 (05:54→22:26)
[2019-01-14 07:20] LABS: ANION GAP 5 (5-19); BLOOD UREA NITROGEN 17 mg/dL (7-20); CARBON DIOXIDE 28 mmol/L (22-30); CHLORIDE 106 mmol/L (98-107); GLUCOSE 120 mg/dL (75-110); SODIUM 138.6 mmol/L (137-145)
[2019-01-14] MEDS: INSULIN LISPRO 100 UNIT/ML 3 ML VIAL SUBCUT SCH ×4 (08:29→22:29)
--- NOTE | 2019-01-14 08:52 | Physician Advisory Note ---
Physician Advisor ProgressNote .: Pursuant to the plan for [facility], I have reviewed the medical record for this patient. Physician Advisor Statement: Nice documentation of type CHF, etc. Approp'ly made Obs to start, given potential for pt to improve rapidly w/tx. 1. Please confirm type of HTN, whether hypertensive urgency, or hypertensive emergency (stating sx caused by HTN), since both have been documented in H&P. 2. Medical necessity: If pt is not able to receive K replacement & safely go home later today, please document the ongoing clinical issues/concerns (besides the 'social issues' r.e. obtaining meds), & may then be appropriate to change to Inpatient status today. Thanks! CK
[2019-01-14] MEDS ORDERED: POTASSIUM CHLORIDE 10 MEQ CAPSULE.ER PO ONE (10:15)
--- NOTE | 2019-01-14 10:43 | PDOC PROGRESS REPORT ---
Subjective Progress Note for:: 01/14/19 Subjective:: Mr. Dawson is a very pleasant 58 years old black male patient with past medical history of systolic congestive heart failure with ejection fraction of 35%, diabetes mellitus, hypertension, presented with chief complaint of shortness of breath. His initial blood work shows BNP of 3100 and his chest x-ray reported as pulmonary congestion and pulmonary edema. He is blood pressure at presentation was 195/129. Patient reports that he has not been taking his heart medications because he ran short of medication and he could not refill because of insurance issue. This morning I seen patient sitting up in bed. He reports this relative improvement in his shortness of breath. His lab shows hypokalemia with potassium of 3. Reason For Visit: HEART FAILURE Physical Exam Vital Signs: Temp Pulse Resp BP Pulse Ox 98.1 F 76 16 117/78 97 01/14/19 08:59 01/14/19 08:59 01/14/19 08:59 01/14/19 08:59 01/14/19 08:59 Intake & Output 01/13/19 01/14/19 01/15/19 06:59 06:59 06:59 Intake Total 320 Balance 320 Weight 140.3 kg General appearance: PRESENT: mild distress, obese Head exam: PRESENT: atraumatic Eye exam: PRESENT: conjunctiva pink Mouth exam: PRESENT: moist Neck exam: ABSENT: carotid bruit, JVD, lymphadenopathy, thyromegaly Respiratory exam: PRESENT: clear to auscultation ele. ABSENT: rales, rhonchi, wheezes Cardiovascular exam: PRESENT: RRR. ABSENT: diastolic murmur, rubs, systolic murmur GI/Abdominal exam: PRESENT: normal bowel sounds, soft. ABSENT: distended, guarding, mass, organolmegaly, rebound, tenderness Extremities exam: PRESENT: +2 edema Neurological exam: PRESENT: alert, awake, oriented to time, oriented to situation Psychiatric exam: PRESENT: normal mood Results Laboratory Results: 01/13/19 08:58 01/14/19 06:33 01/13/19 01/14/19 11:10 06:33 Sodium 138.6 Potassium 3.0 L* Chloride 106 Carbon Dioxide 28 Anion Gap 5 BUN 17 Creatinine 1.20 Est GFR ( Amer) > 60 Est GFR (Non-Af Amer) > 60 Glucose 120 H Calcium 9.0 Urine Color STRAW Urine Appearance CLEAR Urine pH 6.0 Ur Specific [place] 1.007 Urine Protein 100 H Urine Glucose (UA) >=500 H Urine Ketones NEGATIVE Urine Blood SMALL H Urine Nitrite NEGATIVE Ur Leukocyte Esterase NEGATIVE Urine WBC (Auto) 0 Urine RBC (Auto) 0 01/13/19 01/13/19 01/13/19 08:58 12:35 18:33 Troponin I 0.059 0.074 0.069 NT-Pro-B Natriuret Pep 3110 H 01/14/19 01/14/19 00:33 06:33 Troponin I 0.073 NT-Pro-B Natriuret Pep 1940 H Impressions: Chest X-Ray 01/13/19 09:14 IMPRESSION: Fluid overload or congestive failure with interstitial pulmonary edema Assessment and Plan - Diagnosis (1) Acute on chronic systolic congestive heart failure, NYHA class 2 Is this a current diagnosis for this admission?: Yes Plan: Patient has been started on Lasix 40 mg IV every 12 hours. And has been also cardioprotective medications. His shortness of breath relatively subsided and his BNP is also trending down. (2) Hypokalemia Is this a current diagnosis for this admission?: Yes Plan: This morning his potassium is 3. I will replete with p.o. potassium. And check his BMP in a.m. (3) Hypertensive emergency Is this a current diagnosis for this admission?: Yes Plan: Patient presented with blood pressure of 195/129. The sudden shortness of breath and pulmonary edema also could be explained by the hypertensive em ergency. (4) Obesity (BMI 30-39.9) Is this a current diagnosis for this admission?: Yes Plan: Lifestyle modification advised in the form of healthy diet regular exercise and weight loss. (5) Type 2 diabetes mellitus Is this a current diagnosis for this admission?: Yes Plan: Continue current regimen.
[2019-01-14] MEDS: FUROSEMIDE INJ/PF 40 MG/4 ML SDV IV SCH ×2 (11:30→22:30)
[2019-01-14] MEDS: INSULIN GLARGINE,HUM.REC.ANLOG 1,000 UNIT/10 ML VIAL SUBCUT SCH ×2 (11:31→18:16)
[2019-01-14] MEDS: MULTIVITAMIN TABLET PO SCH (11:31)
[2019-01-14] MEDS: METFORMIN HCL 500 MG TABLET PO SCH ×2 (11:32→18:16)
[2019-01-14] MEDS: ASPIRIN 325 MG TABLET PO SCH (11:32)
[2019-01-14] MEDS: AMLODIPINE BESYLATE 5 MG TABLET PO SCH (11:32)
[2019-01-14] MEDS: CARVEDILOL 12.5 MG TABLET PO SCH ×2 (11:32→22:27)
[2019-01-14] MEDS: FAMOTIDINE 20 MG TABLET PO SCH ×2 (11:32→22:31)
[2019-01-14] MEDS: LISINOPRIL 10 MG TABLET PO SCH ×2 (11:33→18:17)
[2019-01-14] MEDS: ISOSORBIDE MONONITRATE 30 MG TAB.ER.24H PO SCH (11:38)
[2019-01-14] MEDS: ATORVASTATIN CALCIUM 40 MG TABLET PO SCH (22:30)
[2019-01-15 06:14] LABS: CHLORIDE 103 mmol/L (98-107); POTASSIUM 3.2 mmol/L (3.6-5.0); SODIUM 138.6 mmol/L (137-145)
[2019-01-15] MEDS: HYDRALAZINE HCL 25 MG TABLET PO SCH ×3 (06:16→21:21)
[2019-01-15] MEDS: HEPARIN SOD (PORCINE) 5,000 UNIT/ML 1 ML SYRINGE SUBCUT SCH ×3 (06:17→21:22)
[2019-01-15 06:31] LABS: ANION GAP 7 (5-19); BLOOD UREA NITROGEN 21 mg/dL (7-20); CARBON DIOXIDE 29 mmol/L (22-30)
[2019-01-15 06:35] LABS: GLUCOSE 64 mg/dL (75-110)
[2019-01-15] MEDS: FUROSEMIDE INJ/PF 40 MG/4 ML SDV IV SCH (10:58)
[2019-01-15] MEDS: FAMOTIDINE 20 MG TABLET PO SCH ×2 (10:59→21:29)
[2019-01-15] MEDS: LISINOPRIL 10 MG TABLET PO SCH (10:59)
[2019-01-15] MEDS: ASPIRIN 325 MG TABLET PO SCH (10:59)
[2019-01-15] MEDS: ISOSORBIDE MONONITRATE 30 MG TAB.ER.24H PO SCH (11:00)
[2019-01-15] MEDS: CARVEDILOL 12.5 MG TABLET PO SCH ×2 (11:00→21:21)
[2019-01-15] MEDS: METFORMIN HCL 500 MG TABLET PO SCH (11:00)
[2019-01-15] MEDS: MULTIVITAMIN TABLET PO SCH (11:00)
[2019-01-15] MEDS: AMLODIPINE BESYLATE 5 MG TABLET PO SCH (11:00)
[2019-01-15] MEDS: INSULIN LISPRO 100 UNIT/ML 3 ML VIAL SUBCUT SCH ×4 (11:06→23:15)
[2019-01-15] MEDS: INSULIN GLARGINE,HUM.REC.ANLOG 1,000 UNIT/10 ML VIAL SUBCUT SCH ×2 (11:29→17:26)
--- NOTE | 2019-01-15 14:13 | PDOC PROGRESS REPORT ---
Subjective Progress Note for:: 01/15/19 Subjective:: -58 years old black male patient with past medical history of systolic congestive heart failure with ejection fraction of 35%, diabetes mellitus, hypertension, presented with chief complaint of shortness of breath. His initial blood work shows BNP of 3100 and his chest x-ray reported as pulmonary congestion and pulmonary edema. He is blood pressure at presentation was 195/129. Patient reports that he has not been taking his heart medications because he ran short of medication and he could not refill because of insurance issue. This morning I seen patient sitting up in bed. He reports this relative improvement in his shortness of breath. His lab shows hypokalemia with potassium of 3. 01/15/[id number]-old male admitted with CHF exacerbation and shortness of breath. Chest x-ray shows pulmonary edema and BNP is 3100. To do the chest x- ray again today. To check the BNP tomorrow. Patient is comfortably in the chair communicating well. not In distress. Expressing desire to go home. Reason For Visit: HEART FAILURE Physical Exam Vital Signs: Temp Pulse Resp BP Pulse Ox 97.5 F 69 16 105/71 99 01/15/19 11:20 01/15/19 11:20 01/15/19 11:20 01/15/19 11:20 01/15/19 11:20 Intake & Output 01/14/19 01/15/19 01/16/19 06:59 06:59 06:59 Intake Total 320 1031 Balance 320 1031 Weight 140.3 kg 133.6 kg General appearance: PRESENT: no acute distress Head exam: PRESENT: atraumatic Eye exam: PRESENT: PERRLA Mouth exam: PRESENT: moist, tongue midline Neck exam: PRESENT: JVD Respiratory exam: PRESENT: clear to auscultation ele, other - Defibrillator present on the left side of the chest.. ABSENT: rales, rhonchi, wheezes Cardiovascular exam: PRESENT: RRR, other - Surgical scar present over the sternum.. ABSENT: diastolic murmur, rubs, systolic murmur GI/Abdominal exam: PRESENT: normal bowel sounds, soft. ABSENT: distended, guarding, mass, organolmegaly, rebound, tenderness Neurological exam: PRESENT: alert, awake, oriented to person, oriented to place, oriented to time, oriented to situation, CN II-XII grossly intact. ABSENT: motor sensory deficit Psychiatric exam: PRESENT: appropriate affect, normal mood. ABSENT: homicidal ideation, suicidal ideation Results Laboratory Results: 01/13/19 08:58 01/15/19 05:25 01/15/19 05:25 Sodium 138.6 Potassium 3.2 L Chloride 103 Carbon Dioxide 29 Anion Gap 7 BUN 21 H Creatinine 1.41 H Est GFR ( Amer) > 60 Est GFR (Non-Af Amer) 52 L Glucose 64 L Calcium 9.0 01/13/19 01/13/19 01/13/19 08:58 12:35 18:33 Troponin I 0.059 0.074 0.069 NT-Pro-B Natriuret Pep 3110 H 01/14/19 01/14/19 00:33 06:33 Troponin I 0.073 NT-Pro-B Natriuret Pep 1940 H Impressions: Chest X-Ray 01/13/19 09:14 IMPRESSION: Fluid overload or congestive failure with interstitial pulmonary edema Assessment and Plan - Diagnosis (1) Acute exacerbation of congestive heart failure Qualifiers: Heart failure type: combined systolic and diastolic Qualified Code(s): I50.43 - Acute on chronic combined systolic (congestive) and diastolic (congestive) heart failure Is this a current diagnosis for this admission?: Yes Plan: The patient reports a history of chronic systolic/diastolic CHF with LVEF of 35% in September 2018 status post pacemaker/AICD placement who is followed by Dr. Petty. He reports that his Medicaid has run out and we will not renew until February of this year. He states that this caused him to run out of his medications proximally 1 week ago. Since that time he has noticed progressively worsening generalized edema and dyspnea on exertion. Patient reports that he is now only able to walk 30-40 feet prior to having to stop to rest which is prompted him to seek assistance in the emergency department. Emergency department provider resumed his home medication regiment and provided IV furosemide which is already improved his symptoms. He is admitted to the telemetry floor. He is placed on a cardiac diet; fluid restricted. We will continue to diurese with IV furosemide. We will continue his home regiment of carvedilol, lisinopril, Isosorbide, hydralazine, Norvasc, with daily aspirin and statin therapy. Troponins are indeterminately elevated; likely demand ischemia in setting of acute CHF exacerbation. Continue to trend. Daily weights. Registered dietitian and patient educator consulted. Discharge planning is consulted. 01/15/2019-patient admitted with acute exacerbation of CHF. She is 35% he has a defibrillator present. 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 Patient is doing well. Chest x-ray shows pulmonary edema and increased BNP at the time of admission. Plan to repeat the chest x-ray today and recheck BMP tomorrow. Patient has a chronic systolic heart failure. (2) Hypokalemia Is this a current diagnosis for this admission?: Yes Plan: This morning his potassium is 3. I will replete with p.o. potassium. And check his BMP in a.m. 01/15/2019-patient potassium level is 4.2. Hypokalemia most likely secondary to diuretic use. To start on potassium 40 mg p.o. daily. (3) Hypertensive emergency Is this a current diagnosis for this admission?: Yes Plan: Patient presented with blood pressure of 195/129. The sudden shortness of breath and pulmonary edema also could be explained by the hypertensive emergency. 01/15/2019-patient blood pressure is 105/71 with heart rate of 69. Patient is presently on amlodipine 5 mg p.o. daily, Coreg 37.5 mg p.o. every 12 hours, hydralazine 25 mg p.o. every 8 hours, lisinopril 40 mg daily. Patient is also on Lasix 40 mg IV twice a day, IV doses switched to p.o. medication today. (4) Type 2 diabetes mellitus Is this a current diagnosis for this admission?: Yes Plan: Continue current regimen. 01/15/2019-patient has history of type 2 diabetes mellitus. He is on metformin thousand milligrams p.o. twice daily at home which was on hold here. On insulin sliding scale. Blood sugar today is 149. Plan is to continue the insulin sliding scale, Lantus 40 units twice a day. Check hemoglobin A1c tomorrow. (5) Obesity (BMI 30-39.9) Is this a current diagnosis for this admission?: Yes Plan: Lifestyle modification advised in the form of healthy diet regular exercise and weight loss. 01/15/2019-patient has history of morbid obesity BMI is more than 40. Diet exercise weight loss lifestyle modifications are discussed with the patient. d ietary consult was requested. - Time Time Spent with patient: 15-24 minutes Medications reviewed and adjusted accordingly: Yes Anticipated discharge: Home
--- NOTE | 2019-01-15 16:12 | RADIOLOGY REPORT (SQ) ---
EXAM DESCRIPTION: CHEST 2 VIEWS COMPLETED DATE/TIME: 01/15/2019 3:52 pm REASON FOR STUDY: chf COMPARISON: CT chest 05/06/2017 the Chest films 07/04/2018, 01/13/2019 EXAM PARAMETERS: NUMBER OF VIEWS: two views TECHNIQUE: Digital Frontal and Lateral radiographic views of the chest acquired. RADIATION DOSE: NA LIMITATIONS: none FINDINGS: LUNGS AND PLEURA: No opacities, masses or pneumothorax. No pleural effusion. MEDIASTINUM AND HILAR STRUCTURES: No masses or contour abnormalities. HEART AND VASCULAR STRUCTURES: Normal cardiac silhouette size. Post sternotomy with left-sided singl e lead pacemaker. BONES: No acute findings. HARDWARE: Left-sided single lead pacemaker OTHER: No other significant finding. IMPRESSION: Old sternotomy for CABG. Left-sided single lead pacemaker. No acute infiltrates TECHNICAL DOCUMENTATION: JOB ID: [id number] [employer] All Rights Reserved Reading location - IP/workstation name: [email or web address]
[2019-01-15] MEDS: POTASSIUM CHLORIDE 10 MEQ CAPSULE.ER PO SCH (16:25)
[2019-01-15] MEDS: DIPHENHYDRAMINE HCL 25 MG CAPSULE PO SCH (17:25)
[2019-01-15] MEDS: FUROSEMIDE 40 MG TABLET PO SCH (17:26)
[2019-01-15] MEDS ORDERED: FUROSEMIDE 40 MG TABLET PO SCH (18:00)
[2019-01-15] MEDS: ATORVASTATIN CALCIUM 40 MG TABLET PO SCH (21:22)
[2019-01-16] MEDS: HEPARIN SOD (PORCINE) 5,000 UNIT/ML 1 ML SYRINGE SUBCUT SCH (06:22)
[2019-01-16] MEDS: HYDRALAZINE HCL 25 MG TABLET PO SCH (06:25)
[2019-01-16 06:42] LABS: ABSOLUTE EOSINOPHILS # (AUTO) 0.1 10^3/uL (0.0-0.6); ABSOLUTE LYMPHOCYTES (AUTO) 1.3 10^3/uL (0.5-4.7); ABSOLUTE MONOCYTES (AUTO) 0.9 10^3/uL (0.1-1.4); ABSOLUTE NEUT (AUTO) 4.9 10^3/uL (1.7-8.2); BASOPHILS % (AUTO) 0.6 % (0-2); EOSINOPHILS % (AUTO) 1.6 % (0-6); HEMATOCRIT 36.2 % (37.9-51.0); HEMOGLOBIN 12.6 g/dL (13.5-17.0); LYMPHOCYTES % (AUTO) 17.6 % (13-45); MEAN CORPUSCULAR HEMOGLOBIN 31.5 pg (27.0-33.4); MEAN CORPUSCULAR HGB CONC 34.7 g/dL (32.0-36.0); MEAN CORPUSCULAR VOLUME 91 fl (80-97); MONOCYTES % (AUTO) 12.9 % (3-13); PLATELET COUNT 253 10^3/uL (150-450); RED BLOOD COUNT 3.99 10^6/uL (4.35-5.55); RED CELL DISTRIBUTION WIDTH 14.2 % (11.5-14.0); SEGMENTED NEUTROPHILS % (AUTO) 67.3 % (42-78); TOTAL CELLS COUNTED % (AUTO) 100 %; WHITE BLOOD COUNT 7.3 10^3/uL (4.0-10.5)
[2019-01-16 07:11] LABS: ALANINE AMINOTRANSFERASE 32 U/L (21-72); ALBUMIN 3.4 g/dL (3.5-5.0); ALKALINE PHOSPHATASE 75 U/L (38-126); ANION GAP 8 (5-19); ASPARTATE AMINO TRANSFERASE 18 U/L (17-59); BILIRUBIN,DIRECT 0.4 mg/dL (0.0-0.4); BILIRUBIN,TOTAL 1.4 mg/dL (0.2-1.3); BLOOD UREA NITROGEN 19 mg/dL (7-20); CALCIUM 9.1 mg/dL (8.4-10.2); CARBON DIOXIDE 29 mmol/L (22-30); CHLORIDE 102 mmol/L (98-107); POTASSIUM 3.7 mmol/L (3.6-5.0); SODIUM 138.9 mmol/L (137-145); TOTAL PROTEIN 6.9 g/dL (6.3-8.2)
[2019-01-16 07:18] LABS: GLUCOSE 58 mg/dL (75-110)
[2019-01-16] MEDS: INSULIN LISPRO 100 UNIT/ML 3 ML VIAL SUBCUT SCH ×2 (07:44→12:48)
[2019-01-16] MEDS: FAMOTIDINE 20 MG TABLET PO SCH (09:24)
[2019-01-16] MEDS: FUROSEMIDE 40 MG TABLET PO SCH (09:24)
[2019-01-16] MEDS: POTASSIUM CHLORIDE 10 MEQ CAPSULE.ER PO SCH (09:24)
[2019-01-16] MEDS: MULTIVITAMIN TABLET PO SCH (09:24)
[2019-01-16] MEDS: ASPIRIN 325 MG TABLET PO SCH (09:24)
[2019-01-16] MEDS: DIPHENHYDRAMINE HCL 25 MG CAPSULE PO SCH (09:24)
[2019-01-16] MEDS: ISOSORBIDE MONONITRATE 30 MG TAB.ER.24H PO SCH (09:24)
[2019-01-16] MEDS: LISINOPRIL 10 MG TABLET PO SCH (09:25)
[2019-01-16] MEDS: CARVEDILOL 12.5 MG TABLET PO SCH (09:25)
[2019-01-16] MEDS: AMLODIPINE BESYLATE 5 MG TABLET PO SCH (09:25)
[2019-01-16] MEDS: INSULIN GLARGINE,HUM.REC.ANLOG 1,000 UNIT/10 ML VIAL SUBCUT SCH (09:33)
--- NOTE | 2019-01-16 13:52 | PDOC DISCHARGE SUMMARY ---
General - Admit/Disc Date/PCP Admission Date/Primary Care Provider: 01/14/19 16:24 JEANNE ROBERTS MD Discharge Date: 01/16/19 - Discharge Diagnosis (1) Acute exacerbation of congestive heart failure Is this a current diagnosis for this admission?: Yes - 01/16/2019 Summary: The patient reports a history of chronic systolic/diastolic CHF with LVEF of 35% in September 2018 status post pacemaker/AICD placement who is followed by Dr. Petty. He reports that his Medicaid has run out and we will not renew until February of this year. He states that this caused him to run out of his medications proximally 1 week ago. Since that time he has noticed progressively worsening generalized edema and dyspnea on exertion. Patient reports that he is now only able to walk 30-40 feet prior to having to stop to rest which is prompted him to seek assistance in the emergency department. Emergency department provider resumed his home medication regiment and provided IV furosemide which is already improved his symptoms. He is admitted to the telemetry floor. He is placed on a cardiac diet; fluid restricted. We will continue to diurese with IV furosemide. We will continue his home regiment of carvedilol, lisinopril, Isosorbide, hydralazine, Norvasc, with daily aspirin and statin therapy. Troponins are indeterminately elevated; likely demand ischemia in setting of acute CHF exacerbation. Continue to trend. Daily weights. Registered dietitian and patient educator consulted. Discharge planning is consulted. 01/15/2019-patient admitted with acute exacerbation of CHF. She is 35% he has a defibrillator present. 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 Patient is doing well. Chest x-ray shows pulmonary edema and increased BNP at the time of admission. Plan to repeat the chest x-ray today and recheck BMP tomorrow. Patient has a chronic systolic heart failure. 01/16/2019 58-year-old male with history of congestive heart failure which was chronic and has EF of 35% in September 2018 he has a pacemaker/AICD placement he follows with Dr. Petty as an outpatient came in with complaints of increasing shortness of breath and difficulty in breathing. Shortness of breath is associated with worsening generalized edema on his ran out of his blood pressure medications including Lasix. Because of lack of insurance he is not taking the medications for the last several weeks before the presentation to the emergency room. In the hospital he was placed on fluid restriction started on IV furosemide 40 mill M's twice a day and resume his home medications Coreg, lisinopril, isosorbide, hydralazine, Norvasc and aspirin and statins are also added to his medications patient fluid status is significantly improved follow- up chest x-ray done yesterday shows no evidence of any pulmonary edema and no evidence of pneumonia. On physical examination pedal edema is also resolved. Patient is going home on Lasix 40 mg p.o. twice daily advised him to continue all the other medications I wrote the prescriptions for all the medications he is supposed to be on. Patient is supposed to go to the community care clinic because of lack of insurance. I strongly advised him to follow-up with community care clinic in 3 to 5 days. (2) Hypokalemia Is this a current diagnosis for this admission?: Yes Summary: This morning his potassium is 3. I will replete with p.o. potassium. And check his BMP in a.m. 01/15/2019-patient potassium level is 4.2. Hypokalemia most likely secondary to diuretic use. To start on potassium 40 mg p.o. daily. 01/16/2019-serum potassium level today is 3.7 he is going home on p.o. potassium supplementation hypokalemia most likely secondary to diuretic use. (3) Hypertensive emergency Is this a current diagnosis for this admission?: Yes Summary: Patient presented with blood pressure of 195/129. The sudden shortness of breath and pulmonary edema also could be explained by the hypertensive emergency. 01/15/2019-patient blood pressure is 105/71 with heart rate of 69. Patient is presently on amlodipine 5 mg p.o. daily, Coreg 37.5 mg p.o. every 12 hours, hydralazine 25 mg p.o. every 8 hours, lisinopril 40 mg daily. Patient is also on Lasix 40 mg IV twice a day, IV doses switched to p.o. medication today. 01/16/2019-patient blood pressure today is patient was advised to continue the present medications at home prescriptions were given. 110/68 well controlled. (4) Type 2 diabetes mellitus Is this a current diagnosis for this admission?: Yes Summary: Continue current regimen. 01/15/2019-patient has history of type 2 diabetes mellitus. He is on metformin thousand milligrams p.o. twice daily at home which was on hold here. On insulin sliding scale. Blood sugar today is 149. Plan is to continue the insulin sliding scale, Lantus 40 units twice a day. Check hemoglobin A1c tomorrow. 01/16/2019-patient has history of type 2 diabetes mellitus. He is on metformin thousand milligrams p.o. twice a day at home which was on hold during this hospital stay. He is also taking Lantus 40 units twice a day at home his hemoglobin A1c is 9.3 diet exercise weight loss lifestyle modifications discussed with the patient during the hospital stay. Dietary consult was requested. I gave the prescription for Metformin Lantus and sliding scale for the patient to take home. (5) Obesity (BMI 30-39.9) Is this a current diagnosis for this admission?: Yes Summary: 01/16/2019-patient BMI is more than 35 weight loss is strongly advised. - Additional Information Resuscitation Status: Full Code Discharge Diet: Diabetic, Other (Comments) Discharge Activity: Activity As Tolerated, Balance Activity w/Rest, Weigh Daily Prescriptions: Amlodipine Besylate [Norvasc 5 mg Tablet] 5 mg PO DAILY #30 tablet Aspirin [Aspirin 325 mg Tablet] 325 mg PO DAILY #30 tablet Atorvastatin Calcium [Lipitor 40 mg Tablet] 40 mg PO QHS #30 tablet Carvedilol [Coreg 25 mg Tablet] 37.5 mg PO Q12 #60 tablet Diphenhydramine HCl [Benadryl] 50 mg PO BID #60 capsule Docusate Sodium [Stool Softener] 200 mg PO BIDP PRN #60 capsule PRN Reason: CONSTIPATION Furosemide [Lasix 40 mg Tablet] 40 mg PO BID #60 tablet Hydralazine HCl [Apresoline 25 mg Tablet] 25 mg PO Q8 #90 tablet Insulin Glargine,Hum.rec.anlog [Lantus Insulin 100 Unit/1 ml 10 ml] 40 unit SUBCUT BID #3 vial Isosorbide Mononitrate [Imdur 30 mg Tablet.er] 30 mg PO DAILY #30 tab.er.24h Lisinopril [Prinivil 40 mg Tablet] 40 mg PO QAM #30 tablet Metformin HCl [Glucophage 500 mg Tablet] 1,000 mg PO BID #60 tablet Potassium Chloride [Klor-Con 10 Meq Capsule ER] 40 meq PO DAILY #30 capsule.er Home Medications: Amlodipine Besylate [Norvasc 5 mg Tablet] 5 mg PO DAILY #30 tablet 01/16/19 Aspirin [Aspirin 325 mg Tablet] 325 mg PO DAILY #30 tablet 01/16/19 Atorvastatin Calcium [Lipitor 40 mg Tablet] 40 mg PO QHS #30 tablet 01/16/19 Carvedilol [Coreg 25 mg Tablet] 37.5 mg PO Q12 #60 tablet 01/16/19 Diphenhydramine HCl [Benadryl] 50 mg PO BID #60 capsule 01/16/19 Docusate Sodium [Stool Softener] 200 mg PO BIDP PRN #60 capsule 01/16/19 Furosemide [Lasix 40 mg Tablet] 40 mg PO BID #60 tablet 01/16/19 Hydralazine HCl [Apresoline 25 mg Tablet] 25 mg PO Q8 #90 tablet 01/16/19 Insulin Glargine,Hum.rec.anlog [Lantus Insulin 100 Unit/1 ml 10 ml] 40 unit SUBCUT BID #3 vial 01/16/19 Isosorbide Mononitrate [Imdur 30 mg Tablet.er] 30 mg PO DAILY #30 tab.er.24h 01/16/19 Lisinopril [Prinivil 40 mg Tablet] 40 mg PO QAM #30 tablet 01/16/19 Metformin HCl [Glucophage 500 mg Tablet] 1,000 mg PO BID #60 tablet 01/16/19 Potassium Chloride [Klor-Con 10 Meq Capsule ER] 40 meq PO DAILY #30 capsule.er 01/16/19 History of Present Illness History of Present Illness: JAMES FLORIAN is a 58 year old male 58 year old male with a past medical history of chronic systolic and diastolic CHF, hypertension, AICD, CABG x3, DM 2, and morbid obesity who presents to the emergency department proximally 1 week after running out of his medications due to insurance/financial restraints with complaint of progressively worsening dyspnea on exertion and generalized edema. He denies chest pain. He is followed by Dr. Petty; reports that his last echocardiogram in Sep showed LVEF of 35%. Evaluation in the emergency department revealed hypertensive emergencies with blood pressures 195/129 that responded adequately to resumption of his home dose medications, tachycardia (HR 102), tachypnea (RR 28) mild hypoxia (SPO2 90% while ambulatory on room air), chest x-ray revealing profound vascular congestion/pulmonary edema, unremarkable CBC, and chemistry revealing a proBNP of 3100 and indeterminately elevated troponins. Physical Exam Vital Signs: Temp Pulse Resp BP Pulse Ox 97.9 F 60 16 114/72 95 01/16/19 12:32 01/16/19 12:32 01/16/19 12:32 01/16/19 12:32 01/16/19 12:32 Intake & Output 01/15/19 01/16/19 01/17/19 06:59 06:59 06:59 Intake Total 1031 2162 Balance 1031 2162 Weight 133.6 kg 134.4 kg General appearance: PRESENT: no acute distress Eye exam: PRESENT: PERRLA Mouth exam: PRESENT: moist, tongue midline Neck exam: ABSENT: carotid bruit, JVD, lymphadenopathy, thyromegaly Respiratory exam: PRESENT: clear to auscultation ele. ABSENT: rales, rhonchi, wheezes Cardiovascular exam: PRESENT: other - Pacemaker in the left side of the chest GI/Abdominal exam: PRESENT: normal bowel sounds, soft. ABSENT: distended, guarding, mass, organolmegaly, rebound, tenderness Extremities exam: PRESENT: full ROM. ABSENT: calf tenderness, clubbing, pedal edema Neurological exam: PRESENT: alert, awake, oriented to person, oriented to place, oriented to time, oriented to situation, CN II-XII grossly intact. ABSENT: mot or sensory deficit Psychiatric exam: PRESENT: appropriate affect, normal mood. ABSENT: homicidal ideation, suicidal ideation Results Laboratory Results: 01/16/19 06:07 01/16/19 06:07 01/16/19 01/16/19 06:07 06:07 WBC 7.3 RBC 3.99 L Hgb 12.6 L Hct 36.2 L MCV 91 MCH 31.5 MCHC 34.7 RDW 14.2 H Plt Count 253 Seg Neutrophils % 67.3 Lymphocytes % 17.6 Monocytes % 12.9 Eosinophils % 1.6 Basophils % 0.6 Absolute Neutrophils 4.9 Absolute Lymphocytes 1.3 Absolute Monocytes 0.9 Absolute Eosinophils 0.1 Absolute Basophils 0.0 Sodium 138.9 Potassium 3.7 Chloride 102 Carbon Dioxide 29 Anion Gap 8 BUN 19 Creatinine 1.34 H Est GFR ( Amer) > 60 Est GFR (Non-Af Amer) 55 L Glucose 58 L Calcium 9.1 Magnesium 1.8 Total Bilirubin 1.4 H AST 18 ALT 32 Alkaline Phosphatase 75 Total Protein 6.9 Albumin 3.4 L 01/13/19 01/13/19 01/13/19 08:58 12:35 18:33 Troponin I 0.059 0.074 0.069 NT-Pro-B Natriuret Pep 3110 H 01/14/19 01/14/19 01/16/19 00:33 06:33 06:07 Troponin I 0.073 NT-Pro-B Natriuret Pep 1940 H 1020 H Impressions: Chest X-Ray 01/15/19 00:00 IMPRESSION: Old sternotomy for CABG. Left-sided single lead pacemaker. No acute infiltrates Qualifiers - * PATIENT BEING DISCHARGED WITH ANY OF THE FOLLOWING DIAGNOSIS: No VTE patient discharged on overlapping Therapy?: No
[2019-01-16 14:12] VITALS: BP 106/69
== END 2019-01-16 15:18 | disposition home or self-care (01) | DRG 304 ==
LOC: ER 08:47 → EH 15:09 → 5 18:09 → OBSVTOIN 01-14 16:24
PROVIDERS: ADMIT Internal Medicine; ATTEND Internal Medicine
DX: I16.1 Hypertensive emergency (principal); I50.43 Acute on chronic combined systolic (congestive) and diastolic (congestive) heart failure; I24.8 Other forms of acute ischemic heart disease; I11.0 Hypertensive heart disease with heart failure; E87.6 Hypokalemia; T50.2X5A Adverse effect of carbonic-anhydrase inhibitors, benzothiadiazides and other diuretics, initial encounter; E11.9 Type 2 diabetes mellitus without complications; E66.9 Obesity, unspecified; E78.5 Hyperlipidemia, unspecified; E66.01 Morbid (severe) obesity due to excess calories; I45.10 Unspecified right bundle-branch block; I25.10 Atherosclerotic heart disease of native coronary artery without angina pectoris; Z91.14 Patient's other noncompliance with medication regimen; I25.2 Old myocardial infarction; Z68.35 Body mass index [BMI] 35.0-35.9, adult; Z95.810 Presence of automatic (implantable) cardiac defibrillator; Z79.899 Other long term (current) drug therapy; Z79.4 Long term (current) use of insulin; Z79.82 Long term (current) use of aspirin; Z95.1 Presence of aortocoronary bypass graft; Z59.9 Problem related to housing and economic circumstances, unspecified; Z60.2 Problems related to living alone; Z87.891 Personal history of nicotine dependence; Z82.49 Family history of ischemic heart disease and other diseases of the circulatory system
CPT/HCPCS: 36415; 71045; 71046; 80048; 80053; 81001; 82962; 83036; 83735; 83880; 84484; 85025; 93005; 93010; 96374; 96375; 99285; G0378; J0360; J1644; J1815; J1940; J3490

== ENCOUNTER 2019-01-22 04:33 | Inpatient (IN) | payer SELFPAY ==
[2019-01-22 05:19] LABS: ABSOLUTE BASOPHILS # (AUTO) 0.1 10^3/uL (0.0-0.2); ABSOLUTE EOSINOPHILS # (AUTO) 0.2 10^3/uL (0.0-0.6); ABSOLUTE LYMPHOCYTES (AUTO) 1.6 10^3/uL (0.5-4.7); ABSOLUTE MONOCYTES (AUTO) 0.8 10^3/uL (0.1-1.4); ABSOLUTE NEUT (AUTO) 5.2 10^3/uL (1.7-8.2); BASOPHILS % (AUTO) 0.8 % (0-2); EOSINOPHILS % (AUTO) 2.3 % (0-6); HEMATOCRIT 38.8 % (37.9-51.0); HEMOGLOBIN 13.1 g/dL (13.5-17.0); LYMPHOCYTES % (AUTO) 20.2 % (13-45); MEAN CORPUSCULAR HGB CONC 33.7 g/dL (32.0-36.0); MEAN CORPUSCULAR VOLUME 92 fl (80-97); MONOCYTES % (AUTO) 9.9 % (3-13); PLATELET COUNT 279 10^3/uL (150-450); RED BLOOD COUNT 4.22 10^6/uL (4.35-5.55); RED CELL DISTRIBUTION WIDTH 14.5 % (11.5-14.0); SEGMENTED NEUTROPHILS % (AUTO) 66.8 % (42-78); TOTAL CELLS COUNTED % (AUTO) 100 %; WHITE BLOOD COUNT 7.8 10^3/uL (4.0-10.5)
[2019-01-22 05:41] LABS: ALANINE AMINOTRANSFERASE 56 U/L (21-72); ALBUMIN 3.6 g/dL (3.5-5.0); ALKALINE PHOSPHATASE 90 U/L (38-126); ANION GAP 8 (5-19); ASPARTATE AMINO TRANSFERASE 62 U/L (17-59); BILIRUBIN,DIRECT 0.3 mg/dL (0.0-0.4); BILIRUBIN,TOTAL 1.2 mg/dL (0.2-1.3); BLOOD UREA NITROGEN 23 mg/dL (7-20); CALCIUM 9.1 mg/dL (8.4-10.2); CARBON DIOXIDE 25 mmol/L (22-30); CHLORIDE 107 mmol/L (98-107); GLUCOSE 128 mg/dL (75-110); POTASSIUM 3.9 mmol/L (3.6-5.0); SODIUM 140.2 mmol/L (137-145); TOTAL PROTEIN 7.1 g/dL (6.3-8.2)
--- NOTE | 2019-01-22 05:46 | ER Document Report ---
ED Respiratory Problem - General Chief Complaint: Shortness Of Breath Stated Complaint: LEGS SWOLLEN,TROUBLE BREATHING Time Seen by Provider: 01/22/19 04:55 Primary Care Provider: JEANNE ROBERTS MD [Primary Care Provider] - Follow up as needed Notes: Patient is a 58-year-old male that comes to the emergency department for chief complaint of shortness of breath. He also states that he is having lower extremity swelling, worse than he has ever experienced. This is bilateral. He states that he was discharged from the hospital approximately 1 week ago, he states he went to the pharmacy, was able to fill atorvastatin, amlodipine, and carvedilol, however he states that they did not have available his prescriptions for Lasix and lisinopril therefore he was unable to take them. He is still using his insulin at home. He reports progressively worsening shortness of breath on exertion. He denies chest pain, fever. He has a mild intermittent cough. TRAVEL OUTSIDE OF THE [place] IN LAST 30 DAYS: No - Related Data Allergies/Adverse Reactions: No Known Allergies Allergy (Verified 12/29/16 11:46) Past Medical History - General Information source: Patient - Social History Smoking Status: Never Smoker Frequency of alcohol use: None Drug Abuse: None Lives with: Alone Family History: CAD, Hypertension Patient has suicidal ideation: No Patient has homicidal ideation: No - Past Medical History Cardiac Medical History: Reports: Hx Congestive Heart Failure, Hx Coronary Artery Disease, Hx Heart Attack, Hx Hypercholesterolemia, Hx Hypertension Denies: Hx DVT, Hx Pulmonary Embolism Pulmonary Medical History: Reports: Hx Pneumonia Denies: Hx Asthma, Hx Bronchitis, Hx COPD Neurological Medical History: Denies: Hx Cerebrovascular Accident, Hx Seizures Endocrine Medical History: Reports: Hx Diabetes Mellitus Type 2. Denies: Hx Hyperthyroidism, Hx Hypothyroidism Renal/ Medical History: Denies: Hx Peritoneal Dialysis GI Medical History: Denies: Hx Cirrhosis, Hx Gastroesophageal Reflux Disease, Hx Hepatitis Musculoskeletal Medical History: Denies Hx Arthritis Psychiatric Medical History: Denies: Hx Depression Infectious Medical History: Denies: Hx Hepatitis Past Surgical History: Reports: Hx Cardiac Catheterization, Hx Cardiac Surgery - defibrillator/pace maker, Hx Coronary Artery Bypass Graft - CABGx3 in 2012, Hx Internal Defibrillator, Hx Tonsillectomy - Immunizations Hx Diphtheria, Pertussis, Tetanus Vaccination: Yes Review of Systems - Review of Systems Constitutional: No symptoms reported EENT: No symptoms reported Cardiovascular: See HPI Respiratory: See HPI Gastrointestinal: No symptoms reported Genitourinary: No symptoms reported Male Genitourinary: No symptoms reported Musculoskeletal: No symptoms reported Skin: No symptoms reported Hematologic/Lymphatic: No symptoms reported Neurological/Psychological: No symptoms reported Physical Exam - Vital signs Vitals: Resp Pulse Ox 16 95 01/22/19 04:49 01/22/19 04:49 - Notes Notes: GENERAL: Alert, interacts well. No acute distress. HEAD: Normocephalic, atraumatic. EYES: Pupils equal, round, and reactive to light. Extraocular movements intact. ENT: Oral mucosa moist, tongue midline. Oropharynx unremarkable. Airway patent. Nares patent, no nasal septal hematoma, TM's intact. NECK: Full range of motion. Supple. Trachea midline. LUNGS: Decreased breath sounds bilaterally. No overt rales, wheezing, or rhonchi. Borderline tachypnea. HEART: Regular rate and rhythm. No murmur ABDOMEN: Soft, non-tender. Non-distended. Bowel sounds present in all 4 quadran ts. GENITOURINARY: Deferred EXTREMITIES: Moves all 4 extremities spontaneously. Bilateral 2+ pitting edema of the lower extremities. Normal radial and dorsalis pedis pulses bilaterally. No cyanosis. BACK: no cervical, thoracic, lumbar midline tenderness. No saddle anesthesia, normal distal neurovascular exam. NEUROLOGICAL: Alert and oriented x3. Normal speech. [cranial nerves II through XII grossly intact]. PSYCH: Normal affect, normal mood. SKIN: Warm, dry, normal turgor. No rashes or lesions noted. Course - Re-evaluation Re-evalutation: EKG shows sinus rhythm at a rate of 70. Borderline T wave inversion V2, no T wave inversions or ST segment changes in consecutive leads. Borderline QTC prolongation at 501. CBC generally unremarkable without significant change. Shows increase in creatinine at 1.62. Troponin indeterminate. BNP is more elevated than prior at greater than 3500. Chest x-ray showing pulmonary vascular congestion. Initial oxygen saturation 94% on room air, he was placed on 2 L. He is not hypoxic or in distress on 2 L. Because of patient's lack of ability to obtain his diuretics and blood pressure medication, worsening CHF exacerbation, bilateral lower extremity edema, dyspnea on exertion, borderline hypoxia, and worsening renal functioning will discuss with hospitalist for admission. Patient states satisfaction with this plan. Discussed with Dr. Rogers. 01/22/19 07:[address] Barnes, hospitalist, patient will be admitted to telemetry full admission. - Vital Signs Vital signs: Temp Pulse Resp BP Pulse Ox 23 H 146/97 H 99 01/22/19 07:01 01/22/19 07:01 01/22/19 07:01 - Laboratory Result Diagrams: 01/22/19 04:55 01/22/19 04:55 Laboratory results interpreted by me: 01/22/19 01/22/19 01/22/19 04:55 04:55 04:55 RBC 4.22 L Hgb 13.1 L RDW 14.5 H BUN 23 H Creatinine 1.62 H Est GFR ( Amer) 54 L Est GFR (Non-Af Amer) 44 L Glucose 128 H AST 62 H NT-Pro-B Natriuret Pep 3580 H Discharge - Discharge Clinical Impression: Shortness of breath, Swelling of both lower extremities Acute exacerbation of congestive heart failure Qualifiers: Heart failure type: unspecified Qualified Code(s): I50.9 - Heart failure, unspecified Condition: Stable Disposition: ADMITTED INPATIENT Admitting Provider: Molly (Hospitalist) Unit Admitted: Telemetry Referrals: JEANNE ROBERTS MD [Primary Care Provider] - Follow up as needed
[2019-01-22 05:56] LABS: TROPONIN I 0.036 ng/mL
--- NOTE | 2019-01-22 06:23 | RADIOLOGY REPORT (SQ) ---
EXAM DESCRIPTION: XR CHEST 1 VIEW COMPLETED DATE/TME: 01/22/2019 05:07 CLINICAL HISTORY: 58 years Male, shortness of breath COMPARISON: January 15, 2019 NUMBER OF VIEWS/TECHNIQUE: 1/AP FINDINGS: Pulmonary vascular congestion, small linear opacity of the left lower lung field. Left cardiac stimulator with leads. Sternotomy. Cardiac/mediastinal hardware/clips. Mildly enlarged cardiac silhouette. No pneumothorax. Stable bony thorax. IMPRESSION: No significant change.
[2019-01-22] MEDS ORDERED: FUROSEMIDE INJ/PF 40 MG/4 ML SDV IV ONE (06:32)
--- NOTE | 2019-01-22 07:51 | ER Document Report ---
Doctor's Note Notes: I personally and independently obtained patient history and examined the patient in conjunction with the APC and agree with the assessment, treatment plan and disposition of the patient as recorded by the APC, and have reviewed the APC's note. HISTORY OF PRESENT ILLNESS: Patient is a 58-year-old male with CHF that presents to the emergency department for chief complaint of []. ROS: Constitutional: Negative for fever. Cardiovascular: Positive for dyspnea on exertion Respiratory: Positive for shortness of breath Gastrointestinal: Negative for vomiting or abdominal pain Musculoskeletal: Negative for arm, leg or back pain Skin: Negative for rash. Neurological: Negative for weakness or numbness. Other than noted above, the 12 point review of systems was reviewed with the patient and were negative, all pertinent findings are included in the HPI. PHYSICAL EXAMINATION: Vital signs reviewed, nursing noted reviewed. GENERAL: Well-appearing, well-nourished and in no acute distress. HEAD: Atraumatic, normocephalic. EYES: Eyes appear normal, conjunctiva are normal. ENT: nares patent, oropharynx clear without exudates. Moist mucous membranes. NECK: Normal range of motion, supple without lymphadenopathy LUNGS: Bilateral rales particularly at the bases, no acute respiratory distress HEART: Regular rate and rhythm without murmurs ABDOMEN: Soft, nontender, normoactive bowel sounds. No rebound, guarding, or rigidity. No masses appreciated. EXTREMITIES: Nontender, good range of motion, bilateral lower extremity pitting edema NEUROLOGICAL: No focal neurological deficits. Moves all extremities spontaneously Motor and sensory grossly intact on exam. PSYCH: Normal mood, normal affect. SKIN: Warm, Dry, normal turgor, no rashes or lesions noted on exposed skin MEDICAL DECISION MAKING: Patient seen and examined, vital signs reviewed, patient to be borderline hypoxic, at rest, but has been very dyspneic with exertion, has not been able to have outpatient treatment with Lasix, and at this point would benefit from inpatient management, with IV diuretics, to improve the patient's overall functi on, chest x-ray was consistent with bilateral pulmonary edema. He is also noted to have a worsening kidney injury, likely cardiorenal syndrome type II, which would benefit from IV diuretics at this point. Please review detail APC documentation. *Note is created using voice recognition software and may contain spelling, syntax or grammatical errors. Laboratory 01/22/19 01/22/1901/22/19 04:55 04:55 04:55 WBC 7.8 RBC 4.22 L Hgb 13.1 L Hct 38.8 MCV 92 MCH 31.0 MCHC 33.7 RDW 14.5 H Plt Count 279 Seg Neutrophils % 66.8 Lymphocytes % 20.2 Monocytes % 9.9 Eosinophils % 2.3 Basophils % 0.8 Absolute Neutrophils 5.2 Absolute Lymphocytes 1.6 Absolute Monocytes 0.8 Absolute Eosinophils 0.2 Absolute Basophils 0.1 Sodium 140.2 Potassium 3.9 Chloride 107 Carbon Dioxide 25 Anion Gap 8 BUN 23 H Creatinine 1.62 H Est GFR ( Amer) 54 L Est GFR (Non-Af Amer) 44 L Glucose 128 H Calcium 9.1 Total Bilirubin 1.2 Direct Bilirubin 0.3 Neonat Total Bilirubin Not Reportable Neonat Direct Bilirubin Not Reportable Neonat Indirect Bili Not Reportable AST 62 H ALT 56 Alkaline Phosphatase 90 Troponin I 0.036 NT-Pro-B Natriuret Pep 3580 H Total Protein 7.1 Albumin 3.6 Chest X-Ray 01/22/19 05:07 IMPRESSION: No significant change.
[2019-01-22] MEDS ORDERED: DOCUSATE SODIUM 100 MG CAPSULE PO PRN (08:25)
[2019-01-22] MEDS ORDERED: DEXTROSE 50%-WATER 25 GM/50 ML DISP.SYRIN IV PRN ×2 (08:26)
[2019-01-22] MEDS ORDERED: DEXTROSE 40% GEL 15 GM TUBE PO PRN ×2 (08:26)
[2019-01-22] MEDS ORDERED: GLUCAGON,HUMAN RECOMB 1 MG INJ IM PRN (08:26)
--- NOTE | 2019-01-22 08:39 | PDOC H&P ---
History of Present Illness Admission Date/PCP: 01/22/19 08:05 JEANNE ROBERTS MD History of Present Illness: JAMES FLORIAN is a 58 year old male who was admitted on the first of this month, about 9 days ago, for the exact same problem. To summarize, he apparently let his Medicaid run out and it does not renew until February, a few weeks from now. He has been out of his medications, including his Lasix, for a few weeks. He was admitted here for couple of days and was diuresed and then sent home with prescriptions for his medications and instructions to follow-up with the community clinic to help get his medications until his Medicaid starts back up. It is unclear whether or not he did set up. Whenever the case, he is not had his Lasix since he left the hospital, and instead of being proactive he just decided to let the same thing happen again. With his EF of 35%, he waited until his leg started to swell again and then he came back into the ER. Past Medical History Cardiac Medical History: Reports: Congestive Heart Failure, Coronary Artery Disease, Myocardial Infarction, Hyperlipidema, Hypertension Denies: DVT, Pulmonary Embolism Pulmonary Medical History: Reports: Pneumonia Denies: Asthma, Bronchitis, Chronic Obstructive Pulmonary Disease (COPD) Neurological Medical History: Denies: Seizures Endocrine Medical History: Reports: Diabetes Mellitus Type 2 Denies: Hyperthyroidism, Hypothyroidism GI Medical History: Denies: Cirrhosis, Gastroesophageal Reflux Disease, Hepatitis Musculoskeltal Medical History: Denies: Arthritis Psychiatric Medical History: Denies: Depression Hematology: Denies: Anemia Past Surgical History Past Surgical History: Reports: Cardiac Catheterization, Coronary Artery Bypass Graft - CABGx3 in 2011, Internal Defibrillator, Tonsillectomy Social History Lives with: Alone Smoking Status: Never Smoker Frequency of Alcohol Use: None Hx Recreational Drug Use: No Drugs: None Hx Prescription Drug Abuse: No Family History Family History: CAD, Hypertension Parental Family History Reviewed: Yes Children Family History Reviewed: Yes Sibling(s) Family History Reviewed.: Yes Medication/Allergy Allergies/Adverse Reactions: No Known Allergies Allergy (Verified 12/29/16 11:46) Review of Systems All systems: reviewed and no additional remarkable complaints except as stated - All systems reviewed and were negative except as noted in the HPI Physical Exam Vital Signs: Temp Pulse Resp BP Pulse Ox 23 H 146/97 H 98 01/22/19 08:01 01/22/19 07:01 01/22/19 08:01 Intake & Output 01/21/19 01/22/19 01/23/19 06:59 06:59 06:59 Output Total 575 Balance -575 General appearance: PRESENT: no acute distress, cooperative, disheveled, morbidly obese Head exam: PRESENT: atraumatic, normocephalic Eye exam: PRESENT: EOMI, PERRLA. ABSENT: conjunctival injection, nystagmus, scleral icterus Mouth exam: PRESENT: moist, neck supple Teeth exam: PRESENT: poor dentation Throat exam: ABSENT: post pharyngeal erythema Neck exam: PRESENT: full ROM. ABSENT: carotid bruit, JVD, lymphadenopathy, meningismus, tenderness, thyromegaly Respiratory exam: PRESENT: decreased breath sounds, symmetrical, unlabored. ABS ENT: accessory muscle use, crackles, prolonged expiratory phas, retraction, rhonchi, tachypnea, wheezes Cardiovascular exam: PRESENT: RRR, +S1, +S2 Pulses: PRESENT: normal carotid pulses Vascular exam: PRESENT: normal capillary refill GI/Abdominal exam: PRESENT: normal bowel sounds, soft. ABSENT: distended, guarding, rebound, tenderness Extremities exam: PRESENT: pedal edema, +2 edema. ABSENT: clubbing Musculoskeletal exam: PRESENT: normal inspection. ABSENT: deformity Neurological exam: PRESENT: alert, awake, oriented to person, oriented to place, oriented to time, oriented to situation, CN II-XII grossly intact. ABSENT: motor sensory deficit Psychiatric exam: PRESENT: appropriate affect, normal mood Skin exam: PRESENT: dry, warm Results Laboratory Results: 01/22/19 04:55 01/22/19 04:55 01/22/19 01/22/19 04:55 04:55 WBC 7.8 RBC 4.22 L Hgb 13.1 L Hct 38.8 MCV 92 MCH 31.0 MCHC 33.7 RDW 14.5 H Plt Count 279 Seg Neutrophils % 66.8 Lymphocytes % 20.2 Monocytes % 9.9 Eosinophils % 2.3 Basophils % 0.8 Absolute Neutrophils 5.2 Absolute Lymphocytes 1.6 Absolute Monocytes 0.8 Absolute Eosinophils 0.2 Absolute Basophils 0.1 Sodium 140.2 Potassium 3.9 Chloride 107 Carbon Dioxide 25 Anion Gap 8 BUN 23 H Creatinine 1.62 H Est GFR ( Amer) 54 L Est GFR (Non-Af Amer) 44 L Glucose 128 H Calcium 9.1 Total Bilirubin 1.2 AST 62 H ALT 56 Alkaline Phosphatase 90 Total Protein 7.1 Albumin 3.6 01/22/19 04:55 Troponin I 0.036 NT-Pro-B Natriuret Pep 3580 H Impressions: Chest X-Ray 01/22/19 05:07 IMPRESSION: No significant change. Assessment and Plan - Diagnosis (1) Acute on chronic systolic congestive heart failure, NYHA class 2 Is this a current diagnosis for this admission?: Yes Plan: We will give him some IV Lasix and then will consult discharge planning and social work will see what we can do to get this get his medications, because I feel like if we do not give them to him and he is going to wind up back in the hospital again before his Medicaid kicks back in a he gets prescriptions from the pharmacy. His pattern of behavior has not been of one who is going to be very proactive in doing his part of managing his medical conditions. (2) Obesity (BMI 30-39.9) Is this a current diagnosis for this admission?: Yes Plan: Encouraged lifestyle modification (3) Diabetes mellitus type 2 in obese Is this a current diagnosis for this admission?: Yes Plan: We will continue his Lantus and put him on a sliding scale, and when his creatinine comes back down we can restart his metformin. (4) Hypertension Qualifiers: Hypertension type: essential hypertension Is this a current diagnosis for this admission?: Yes Plan: We will put him back on his home medications which I think will control his blood pressure just fine (5) Noncompliance with medication regimen Is this a current diagnosis for this admission?: Yes Plan: As noted above - Time Time Spent with patient: 35 or more minutes - Inpatient Certification Medical Necessity: Need For Continuous Telemetry Monitoring, Risk of Complication if Not Cared For in Hospital
[2019-01-22] MEDS ORDERED: CARVEDILOL 37.5 MG PO SCH (10:00)
[2019-01-22] MEDS ORDERED: INSULIN GLARGINE,HUM.REC.ANLOG 1,000 UNIT/10 ML VIAL SUBCUT SCH (10:00)
[2019-01-22] MEDS ORDERED: AMLODIPINE BESYLATE 5 MG TABLET PO SCH (10:00)
[2019-01-22] MEDS ORDERED: ISOSORBIDE MONONITRATE 30 MG TAB.ER.24H PO SCH (10:00)
[2019-01-22] MEDS ORDERED: ASPIRIN 325 MG TABLET PO SCH (10:00)
[2019-01-22] MEDS: FUROSEMIDE INJ/PF 40 MG/4 ML SDV IV SCH ×2 (10:03→21:42)
[2019-01-22] MEDS: INSULIN LISPRO 100 UNIT/ML 3 ML VIAL SUBCUT SCH ×3 (11:35→21:42)
[2019-01-22] MEDS: HEPARIN SOD (PORCINE) 5,000 UNIT/ML 1 ML SYRINGE SUBCUT SCH ×2 (13:44→21:42)
[2019-01-22] MEDS ORDERED: HYDRALAZINE HCL 25 MG TABLET PO SCH (14:00)
[2019-01-22] MEDS ORDERED: ACETAMINOPHEN 325 MG TABLET PO PRN (21:22)
[2019-01-22] MEDS ORDERED: ATORVASTATIN CALCIUM 40 MG TABLET PO SCH (22:00)
[2019-01-22] MEDS ORDERED: LISINOPRIL 10 MG TABLET PO ONE (22:30)
[2019-01-22 23:06] LABS: ANION GAP 6 (5-19); BLOOD UREA NITROGEN 21 mg/dL (7-20); CARBON DIOXIDE 30 mmol/L (22-30); CHLORIDE 104 mmol/L (98-107); GLUCOSE 113 mg/dL (75-110); POTASSIUM 4.6 mmol/L (3.6-5.0); SODIUM 140.2 mmol/L (137-145)
[2019-01-22] MEDS ORDERED: BENZOCAINE/MENTHOL SORE THROAT LOZENGE BUCCAL PRN (23:09)
[2019-01-22] MEDS: HYDRALAZINE HCL 25 MG TABLET PO SCH (23:23)
--- NOTE | 2019-01-23 00:04 | EKG REPORT ---
SEVERITY:- ABNORMAL ECG - SINUS RHYTHM PROBABLE LEFT ATRIAL ABNORMALITY NONSPECIFIC INTRAVENTRICULAR CONDUCTION DELAY : Confirmed by: Natan Montoya 23-Jan-2019 00:04:05
[2019-01-23] MEDS: HYDRALAZINE HCL 25 MG TABLET PO SCH ×2 (05:29→13:05)
[2019-01-23] MEDS: HEPARIN SOD (PORCINE) 5,000 UNIT/ML 1 ML SYRINGE SUBCUT SCH ×2 (05:31→13:05)
[2019-01-23 06:26] LABS: HEMATOCRIT 37.1 % (37.9-51.0); HEMOGLOBIN 12.6 g/dL (13.5-17.0); MEAN CORPUSCULAR HEMOGLOBIN 31.1 pg (27.0-33.4); MEAN CORPUSCULAR VOLUME 92 fl (80-97); PLATELET COUNT 290 10^3/uL (150-450); RED BLOOD COUNT 4.05 10^6/uL (4.35-5.55); WHITE BLOOD COUNT 6.5 10^3/uL (4.0-10.5)
[2019-01-23 07:03] LABS: ANION GAP 6 (5-19); BLOOD UREA NITROGEN 18 mg/dL (7-20); CALCIUM 8.7 mg/dL (8.4-10.2); CARBON DIOXIDE 27 mmol/L (22-30); CHLORIDE 108 mmol/L (98-107); GLUCOSE 88 mg/dL (75-110); POTASSIUM 3.8 mmol/L (3.6-5.0); SODIUM 141.3 mmol/L (137-145)
[2019-01-23] MEDS ORDERED: LISINOPRIL 10 MG TABLET PO SCH ×2 (08:00→18:00)
[2019-01-23] MEDS: INSULIN LISPRO 100 UNIT/ML 3 ML VIAL SUBCUT SCH ×2 (09:18→12:14)
[2019-01-23] MEDS: FUROSEMIDE INJ/PF 40 MG/4 ML SDV IV SCH (09:21)
[2019-01-23] MEDS ORDERED: AMLODIPINE BESYLATE 5 MG TABLET PO SCH (10:00)
[2019-01-23] MEDS ORDERED: CARVEDILOL 12.5 MG TABLET PO SCH (10:00)
[2019-01-23] MEDS ORDERED: DOCUSATE SODIUM 100 MG CAPSULE PO SCH (10:00)
[2019-01-23] MEDS ORDERED: DIPHENHYDRAMINE HCL 25 MG CAPSULE PO SCH (10:00)
[2019-01-23 14:29] VITALS: BP 166/88
--- NOTE | 2019-01-23 17:19 | PDOC DISCHARGE SUMMARY ---
General - Admit/Disc Date/PCP Admission Date/Primary Care Provider: 01/22/19 08:05 JEANNE ROBERTS MD Discharge Date: 01/23/19 - Discharge Diagnosis (1) Acute on chronic systolic congestive heart failure, NYHA class 2 Is this a current diagnosis for this admission?: Yes Summary: We give him a few doses of some IV Lasix. His volume status improved substantially. We put him back on his usual home medicines and make sure that he had prescriptions for his Lasix. (2) Obesity (BMI 30-39.9) Is this a current diagnosis for this admission?: Yes Summary: Strongly encouraged lifestyle modification (3) Diabetes mellitus type 2 in obese Is this a current diagnosis for this admission?: Yes Summary: He had also not been getting prescription for his metformin, so I gave him a prescription for that as well. (4) Hypertension Is this a current diagnosis for this admission?: Yes Summary: His blood pressure was pretty well controlled without having to use his hydralazine or Imdur, so I did not give him prescriptions for those (5) Noncompliance with medication regimen Is this a current diagnosis for this admission?: Yes Summary: I told him that if he runs into a situation where his medications are showing up at his pharmacy was supposed to, he should call 1 of his doctors and not just let them run out and go without them for weeks. - Additional Information Resuscitation Status: Full Code Discharge Diet: Cardiac, Diabetic Discharge Activity: Activity As Tolerated Prescriptions: Furosemide [Lasix 40 mg Tablet] 40 mg PO BID #60 tablet Metformin HCl [Glucophage 500 mg Tablet] 1,000 mg PO Q12 #120 tablet Home Medications: Amlodipine Besylate [Norvasc 5 mg Tablet] 5 mg PO DAILY 01/22/19 Aspirin [Aspirin 325 mg Tablet] 325 mg PO DAILY 01/22/19 Atorvastatin Calcium [Lipitor 40 mg Tablet] 40 mg PO QHS 01/22/19 Carvedilol [Coreg 25 mg Tablet] 37.5 mg PO Q12 01/22/19 Diphenhydramine HCl [Allergy Relief] 50 mg PO BID 01/22/19 Docusate Sodium [Stool Softener] 100 mg PO BID 01/22/19 Hydralazine HCl [Apresoline 25 mg Tablet] 25 mg PO Q8 01/22/19 Lisinopril [Prinivil 40 mg Tablet] 20 mg PO QPM 01/22/19 Lisinopril [Prinivil 40 mg Tablet] 40 mg PO QAM 01/22/19 Multivitamin/Iron/Folic Acid [Centrum Complete Multivit Tab] 1 each PO DAILY 01/22/19 Furosemide [Lasix 40 mg Tablet] 40 mg PO BID #60 tablet 01/23/19 Metformin HCl [Glucophage 500 mg Tablet] 1,000 mg PO Q12 #120 tablet 01/23/19 History of Present Illness History of Present Illness: JAMES FLORIAN is a 58 year old male who was admitted on the first of this month, about 9 days ago, for the exact same problem. To summarize, he apparently let his Medicaid run out and it does not renew until February, a few weeks from now. He has been out of his medications, including his Lasix, for a few weeks. He was admitted here for couple of days and was diuresed and then sent home with prescriptions for his medications and instructions to follow-up with the community clinic to help get his medications until his Medicaid starts back up. It is unclear whether or not he did set up. Whenever the case, he is not had his Lasix since he left the hospital, and instead of being proactive he just decided to let the same thing happen again. With his EF of 35%, he waited until his leg started to swell again and then he came back into the ER. Hospital Course Hospital Course: We gave him a few doses of some IV Lasix and his volume status corrected rather quickly. He said that he is able to get his prescriptions, they just did not show up with the pharmacy, and he did not call any of his physicians. He had prescriptions for his Coreg, amlodipine, and atorvastatin, and he had refills on his lisinopril but did not get that refilled, and his Lasix prescription had run out, as well as his metformin. His Imdur hydralazine has also run out. We had him on Coreg, lisinopril, and amlodipine to control his blood pressure, and that combination did a very good job here. I told him to get his lisinopril r efilled, and not to worry about prescriptions for his Imdur or hydralazine. I did give him a refill for his Lasix. His labs and examination were reassuring and he was discharged in good condition. Physical Exam Vital Signs: Temp Pulse Resp BP Pulse Ox 97.8 F 72 18 166/88 H 95 01/23/19 14:25 01/23/19 14:25 01/23/19 14:25 01/23/19 14:25 01/23/19 14:25 Intake & Output 01/22/19 01/23/19 01/24/19 06:59 06:59 06:59 Intake Total 780 Output Total 1975 Balance -1195 Weight 141.3 kg General appearance: PRESENT: no acute distress, cooperative, disheveled, morbid ly obese Respiratory exam: PRESENT: decreased breath sounds, symmetrical, unlabored. ABSENT: accessory muscle use, crackles, prolonged expiratory phase, retraction, rhonchi, tachypnea, wheezes Cardiovascular exam: PRESENT: RRR, +S1, +S2 Pulses: PRESENT: normal carotid pulses Vascular exam: PRESENT: normal capillary refill GI/Abdominal exam: PRESENT: normal bowel sounds, soft. ABSENT: distended, guarding, rebound, tenderness Extremities exam: PRESENT: pedal edema, +2 edema. ABSENT: clubbing Musculoskeletal exam: PRESENT: normal inspection. ABSENT: deformity Neurological exam: PRESENT: alert, awake, oriented to person, oriented to place, oriented to time, oriented to situation Psychiatric exam: PRESENT: appropriate affect, normal mood Skin exam: PRESENT: dry, warm Results Laboratory Results: 01/23/19 05:35 01/23/19 05:35 01/22/19 01/23/19 01/23/19 22:40 05:35 05:35 WBC 6.5 RBC 4.05 L Hgb 12.6 L Hct 37.1 L MCV 92 MCH 31.1 MCHC 34.0 RDW 15.0 H Plt Count 290 Sodium 140.2 141.3 Potassium 4.6 3.8 Chloride 104 108 H Carbon Dioxide 30 27 Anion Gap 6 6 BUN 21 H 18 Creatinine 1.50 H 1.26 H Est GFR ( Amer) 59 L > 60 Est GFR (Non-Af Amer) 48 L 59 L Glucose 113 H 88 Calcium 9.0 8.7 Magnesium 2.0 01/22/19 04:55 Troponin I 0.036 NT-Pro-B Natriuret Pep 3580 H Impressions: Chest X-Ray 01/22/19 05:07 IMPRESSION: No significant change. Qualifiers - * PATIENT BEING DISCHARGED WITH ANY OF THE FOLLOWING DIAGNOSIS: Heart Failure HF Pt being discharged on ACEI for LVEF less than 40%?: Yes HF Pt being discharged on ARBS for LVEF less than 40%?: No Reason(s) for not prescribing ARBS:: Not indicated HF Pt with Afib discharged with Warfarin?: No Reason(s) for not prescribing Warfarin:: Not indicated HF Pt discharged on evidence-based Beta Joselito:: Yes
== END 2019-01-23 14:51 | disposition home or self-care (01) | DRG 293 ==
LOC: ER 04:33 → EH 08:05 → 4S 11:18
PROVIDERS: ADMIT Family Medicine; ATTEND Family Medicine
DX: I11.0 Hypertensive heart disease with heart failure (principal); I50.23 Acute on chronic systolic (congestive) heart failure; E66.9 Obesity, unspecified; E11.9 Type 2 diabetes mellitus without complications; I25.10 Atherosclerotic heart disease of native coronary artery without angina pectoris; E78.5 Hyperlipidemia, unspecified; I45.81 Long QT syndrome; Z60.2 Problems related to living alone; Z91.14 Patient's other noncompliance with medication regimen; Z79.84 Long term (current) use of oral hypoglycemic drugs; Z79.82 Long term (current) use of aspirin; Z79.899 Other long term (current) drug therapy; I25.2 Old myocardial infarction; Z95.1 Presence of aortocoronary bypass graft; Z95.810 Presence of automatic (implantable) cardiac defibrillator; Z82.49 Family history of ischemic heart disease and other diseases of the circulatory system
CPT/HCPCS: 36415; 71045; 80048; 80053; 82962; 83735; 83880; 84484; 85025; 85027; 93005; 93010; 96374; 99285; J1644; J1815; J1940